=== PATIENT | female | born 1955 | race Caucasian/White ===

== ENCOUNTER 2019-02-27 06:00 | Day surgery (SDC) | payer MEDICAID, SELFPAY ==
[2019-02-23 10:41] LABS: Add Urine Microscopic? NO
--- NOTE | 2019-02-23 10:44 | ANES.PREANES ---
Pre-Anesthetic Assessment Pre-Anesthetic Assessment: Height/Weight: Height 15.9 m Weight 75.296 kg Preop Diagnosis: ovarian cysts Proposed Procedure: Operation Date: 02/27/19 08:30 Proposed Procedures p Laparoscopic Salpingo Oophorectomy(Bilateral) - Michael Han MD Familial anesthetic complications: No trouble Social: Social History: No alcohol and No tobacco Exam: Pre-Anes Outpt Exam: alert Airway: Cervical ROM: WNL MP: 1 Dentition: Chipped Additional comments: missing Pulmonary: Pulmonary: None reported CV/HEM: CV/HEM: HTN : : None reported Hepatic: Hepatic: None reported GI: GI: GERD Metabolic: Metabolic: None reported Musc/skel: Musc/skel: Lower Back Pain Neuropsych: Neuropsych: CVA (2 years ago, no left over symptoms) Anesthetic Plan: ASA status: III Anesthesia: General Risk of > 500 ml blood loss (7ml/kg in children): No PFSH Anesthesia PFSH: Social History (Updated 02/23/19 @ 10:20 by Ana Lilia Hernandez) Smoking and tobacco status: former smoker Quit status (tobacco): has quit using tobacco Year quit tobacco: 1974 Alcohol intake: never Additional social history: Well balanced diet Data Anesthesia Cardiac Studies: No Data to Display
[2019-02-23 10:48] LABS: Bilirubin Urine Neg (NEGATIVE); Blood Urine Neg (Negative); Glucose Urine UA Norm (Normal); Ketones Urine Negative (Negative); Leukocyte Esterase Urine Negative (Negative); Nitrate Urine Negative (Negative); Protein Urine Neg (Negative); Specific Gravity, Urine 1.005 (1.005-1.030); Urine Appearance Clear (CLEAR); Urine Color Straw (Yellow); Urobilinogen Urine Norm (Negative)
[2019-02-23 10:48] LABS: Hematocrit 45.3 % (37.0-47.0); Hemoglobin 14.7 g/dL (11.5-15.3); Mean Corpuscular HGB Conc 32.5 g/dL (30.0-36.0); Mean Corpuscular Hemoglobin 29.9 pg (28.0-34.0); Mean Corpuscular Volume 92.1 fL (81-99); Mean Platelet Volume 11.6 fL (7.4-10.4); Platelet Count 272 10^3/cmm (130-400); Red Blood Count 4.92 10^6/uL (4.1-5.3); Red Cell Distribution Width 13.8 % (12.1-15.1); White Blood Count 8.1 10^3/uL (4.0-10.0)
[2019-02-23 10:58] LABS: Anion Gap 12.9 (5-19); Blood Urea Nitrogen 14 mg/dL (8-23); Calcium 10.5 mg/Dl (8.8-10.2); Carbon Dioxide 29 mmol/L (22-29); Chloride 100 mmol/L (98-107); Glomerular Filtration Rate 124.6 mL/min (90-130); Glucose 103 mg/dL (74-106); Potassium 3.9 mmol/L (3.5-5.1); Sodium 138 mmol/L (136-145)
[2019-02-23 11:40] LABS: Absolute Segmented Neutrophil 5.6 10/cmm (1.6-7.1); Band Neutrophils Absolute 0.4 10^3/cmm (0.0-1.2); Giant Platelets 1+; Lymphocytes 20 %; Monocytes Absolute 0.4 10^3/cmm (0.1-0.6); Platelet Estimate Normal (Normal); Segmented Neutrophils 70 %; Total Cells Counted 100 (0-100)
[2019-02-27] VITALS (8 sets, daily range): BP systolic 130–158; BP diastolic 66–85; PULSE 54–78; RESP 10–183; TEMP 36.2–36.8; O2SAT 96–100
[2019-02-27] MEDS: sodium chloride 0.9% 1,000 ML 30 ML IV (06:43)
[2019-02-27] MEDS: ketorolac 30 mg/mL INJ IVP (06:48)
[2019-02-27] MEDS: phenazopyridine 100 mg Tablet 200 MG PO (06:48)
--- NOTE | 2019-02-27 07:04 | P.HPUD_ITS ---
H&P update H&P Update: DATE OF SURGERY/PROCEDURE: 02/27/19 DATE H&P PERFORMED: 11/03 H&P UPDATE INFORMATION: H&P completed within last 30 days, No changes to prior documentation and H&P is in [facility] EMR on date indicated PREOP DIAGNOSIS: Left ovarian neoplasm of uncertain behavior PLANNED PROCEDURE: Operation Date: 02/27/19 07:00 Proposed Procedures p Laparoscopic Salpingo Oophorectomy(Bilateral) - Michael Han MD Full H&P Medications/Allergies: Current Medications: Current Medications Generic Name Dose Route Start Last Admin Trade Name Freq PRN Reason Stop Dose Admin Sodium Chloride 1,000 mls @ 30 ml s/hr 02/27/19 06:30 02/27/19 06:43 Sodium Chloride 0.9% IV 02/28/19 06:29 30 mls/hr .Q24H CADEN Administration Perinent History: Medical/Surgical History: Medical History (Updated 02/25/19 @ 18:59 by Michael Han MD) Breast cancer (Acute) Diagnosed 2013. Treated with lumpectomy and lymph node excision. Received chemotherapy. Dyslipidemia (Acute) Essential hypertension (Acute) Gastroesophageal reflux disease without esophagitis (Acute) History of cerebrovascular accident (Acute) Patient had a cerebrovascular accident on 11/05/2016 (age 61) involving the left middle cerebral artery. Patient treated with TPA. She has had a completely workup. She has no residual deficit. Neoplasm of uncertain behavior of ovary (Acute) Obesity (BMI 30-39.9) (Acute) Urinary incontinence (Acute) 01/10/2019: Reports stress and urgency incontinence with urgency being the greatest complaint. Reports only mild stress symptoms. Has been on Vesicare for several years which has been controlling her symptoms. Family History: Family History (Updated 02/19/19 @ 15:48 by Alexia Rincon RN) Father Stroke Heart disease Sister Hypertension Social History: Social History Smoking and tobacco status: former smoker Quit status (tobacco): has quit using tobacco Year quit tobacco: 1975 Alcohol intake: never Additional social history: Well balanced diet
--- NOTE | 2019-02-27 08:16 | PM.OP ---
Operative Report Date of procedure: 02/27/19 Preop Diagnosis: Left ovarian neoplasm of uncertain behavior Post-op diagnosis: same Procedure Done: Laparoscopic bilateral salpingo-oophorectomy Specimens removed/disposition: Bilateral tubes and ovaries Surgeon: Michael Han Anesthesia: general Estimated blood loss (mL): 5 IV fluids (mL): 800 Urine output (mL): 300 Complications: None Findings: Minimal uterine prolapse. Normal-appearing uterus. Anterior posterior cul-de-sac normal in appearance. Normal-appearing right ovary and tube. Left ovary was enlarged with a cyst present within the ovary. She had adhesions of the sigmoid along the left pelvic brim. Condition: stable Disposition: same day Procedure: DATE OF SURGERY: 02/27/2019 DATE OF DICTATION: 02/27/2019 TIME OF DICTATION: 08: 17 PREOPERATIVE DIAGNOSIS: Left ovarian neoplasm of uncertain behavior POSTOPERATIVE DIAGNOSIS: Left ovarian neoplasm of uncertain behavior PROCEDURE: Laparoscopic bilateral salpingo-oophorectomy SURGEON: Michael Han M.D. TRAY ROOM WORKER: None ANESTHESIA: General per endotracheal tube INDICATIONS: Patient is a 64-year-old white female 2, para 2 who is postmenopausal. She presented to the office on 12/05/2017 in follow-up of an ER visit with an incidental finding of a cystic left adnexal mass. She was being evaluated for possible kidney stones and the cyst was identified. She denied any symptoms related to the cyst itself. She had had an ultrasound on 06/13/2017 which had shown a left cyst measuring 5.0 x 4.8 cm. On 12/27/2017, the cyst measured 5.5 x 5.2 x 4.2 cm and was thought to be either unchanged or minimally changed. This was then serially followed over the next year. By December 2018, the cyst had enlarged and was now 7.7 x 4.5 x 4.7 cm. It was still simple in appearance. However due to the slow enlargement, decision was made to proceed with removal of the ovaries as there is was more likely to be a tumor of the ovary. Questions were answered and she is presenting for surgery at this time. PROCEDURE: The patient was taken to the operating room where general anesthesia was obtained. She was prepped and draped in the usual sterile fashion in the dorsal supine position with legs in Alexis style stirrups. Sequential compression boots were placed prior to starting the case. Bladder was drained and exam under anesthesia was performed. She was found to have minimal uterine prolapse. Weighted speculum was placed in the vagina and the cervix was grasped with a single-tooth tenaculum. A ZUMI was placed. The infraumbilical region was injected with 2% lidocaine with epinephrine. Skin incision was made with a knife in the lower edge of the navel and a size 10 trocar and sheath were inserted under direct visualization using an Optiview type technique. Trocar was removed and replaced with just the laparoscope confirming intra-abdominal placement. The anterior abdominal wall was inspected and noted to be free of adhesions. In the right and left lower quadrants lateral to the inferior epigastric vessels, the skin was injected with 2% lidocaine with epinephrine. Skin incision was made with the knife and a 5 mm trocar and sheath were inserted under direct visualization. The pelvis was thoroughly inspected. She had a left ovarian cyst. Right ovary was normal in appearance. No other pelvic or uterine abnormalities noted. She did have adhesions of the sigmoid along the pelvic brim. Using the Voyant sealing device, the adhesions of the sigmoid along the pelvic brim were taken down and allowed the infundibulopelvic ligament to be identified and visualized. Care was taken not to damage underlying structures in the process. The left infundibulopelvic ligament was sealed and cut and the dissection carried along the underlying mesovarium and mesosalpinx until the corner of the uterus was reached. The fallopian tube and the utero-ovarian ligament was sealed and cut, completely freeing the tube and ovary. The right infundibulopelvic ligament was sealed and cut and the dissection carried along the underlying mesovarium mesosalpinx until the corner of the uterus was reached. The fallopian tube and the utero-ovarian ligament were sealed and cut, completely freeing the tube and ovary. A 5 mm scope was inserted into the right lower quadrant site. A laparoscopic pouch was passed through the umbilical site and both ovaries placed within the pouch. This was brought up to the incision and the pouch brought through the abdominal incision after stretching the fascial incision. The cyst was then able to be aspirated which deflated the ovary and allow the pouch to then be removed from the abdominal cavity with ovaries within the pouch. No spillage of fluid occurred with this. The fascia was closed at the umbilicus using interrupted stitches of 0 Vicryl suture. This allowed adequate pneumoperitoneum to be maintained. The pelvis was then reinspected and the dissection areas noted to be hemostatic. The abdomen was deflated and the ports removed. The umbilical site was reapproximated using 4-0 Vicryl suture. Skin glue was applied to the other sites and the skin of the navel. The ZUMI was removed and there was minimal bleeding from the tenaculum site. Patient tolerated the procedures well. Sponge and needle counts were correct. ESTIMATED BLOOD LOSS: 5 mL INTRAVENOUS FLUIDS: 800 mL crystalloid DRAINS: None SPECIMENS: Bilateral tubes and ovaries COMPLICATIONS: None FINDINGS: Minimal uterine prolapse. Normal-appearing uterus. Anterior posterior cul-de-sac normal in appearance. Normal-appearing right ovary and tube. Left ovary was enlarged with a cyst present within the ovary. She had adhesions of the sigmoid along the left pelvic brim. POSTOPERATIVE STATUS: The patient was transferred to the recovery room in satisfactory condition. DISPOSITION: Patient was to be discharged home when criteria was met. FOLLOWUP APPOINTMENT: Patient was to followup in my office on 03/12/2019. PRESCRIPTIONS: She received prescriptions for: [place] 5/325 mg, 1 to 2 tablets every 6 hours as needed for pain, #30, 0 refills. She may resume her usual home medications.
--- NOTE | 2019-02-27 08:30 | SUR.PHASEI ---
0829 PATIENT TO PACU AT THIS TIME VIA GURNEY FROM OR. RR EVEN AND UNLABORED. PWD.
--- NOTE | 2019-02-27 08:55 | SUR.PHASEI ---
0851 PATIENT TO OPS VIA [facility]. PATIENT A/OX3. NO DISTRESS. RR EVEN AND UNLABORED. DENIES PAIN.
[2019-02-27] MEDS: HYDROcodone-acetaminophen 5-325 mg Tablet 1 TAB PO (09:19)
[2019-02-27] MEDS: ondansetron 2 mg/ML SDV 2 mL 4 MG IVP (09:35)
--- NOTE | 2019-02-27 14:42 | ANE.PACU ---
 Inpatient post-anesthesia follow up: Airway intact: Yes Vital signs: Temperature 97.4 F Pulse Rate [Left A pical] 60 Respiratory Rate 183 Blood Pressure [Ri ght Arm] 143/69 Pulse Oximetry 96 Oxygen Delivery Me thod Room Air Oxygen Flow Rate 3 Fraction of Inspir ed Oxygen Hydration adequate: Yes Nausea and vomiting: No Mental status: Baseline
== END 2019-02-27 10:21 | disposition home or self-care (01) ==
PROVIDERS: Family Provider Nurse Practitioner; PCP Nurse Practitioner; Visit Provider Obstetrics & Gynecology
PROC: (CPT 58661; principal; 2019-02-27 07:00)
DX: N83.202 Unspecified ovarian cyst, left side (principal); Z85.3 Personal history of malignant neoplasm of breast; E78.5 Hyperlipidemia, unspecified; I10 Essential (primary) hypertension; Z86.73 Personal history of transient ischemic attack (TIA), and cerebral infarction without residual deficits; Z82.49 Family history of ischemic heart disease and other diseases of the circulatory system; Z87.891 Personal history of nicotine dependence
CPT/HCPCS: 58661; 12345; 36415; 80048; 81003; 85007; 85027; 86850; 86900; 88305; 96374; 96375; J0131; J1100; J1885; J2001; J2405; J2704; J2710; J3010; J3490; J7030

== ENCOUNTER → 2019-03-14 12:49 | Outpatient (BNVA) | payer MEDICAID, SELFPAY | PROVIDERS: Family Provider Nurse Practitioner; PCP Nurse Practitioner; Visit Provider Specialist | DX: Z86.73 Personal history of transient ischemic attack (TIA), and cerebral infarction without residual deficits (principal); Z87.891 Personal history of nicotine dependence | CPT/HCPCS: 99214 ==

== ENCOUNTER 2019-03-16 08:36 | Outpatient (CLI) | payer MEDICAID, SELFPAY | END 2019-03-16 08:37 | disposition home or self-care (01) | LOC: ONCMED 08:39 | PROVIDERS: Family Provider Nurse Practitioner; PCP Nurse Practitioner; Visit Provider Internal Medicine Hematology & Oncology | DX: Z08 Encounter for follow-up examination after completed treatment for malignant neoplasm (principal); Z85.3 Personal history of malignant neoplasm of breast; M85.88 Other specified disorders of bone density and structure, other site; I89.0 Lymphedema, not elsewhere classified; I10 Essential (primary) hypertension; E78.5 Hyperlipidemia, unspecified; Z79.82 Long term (current) use of aspirin; Z92.21 Personal history of antineoplastic chemotherapy; Z90.722 Acquired absence of ovaries, bilateral; Z92.3 Personal history of irradiation; Z86.73 Personal history of transient ischemic attack (TIA), and cerebral infarction without residual deficits | CPT/HCPCS: G0463 ==

== ENCOUNTER → 2019-04-09 08:32 | Outpatient (BNVA) | payer MEDICAID, SELFPAY | PROVIDERS: Family Provider Nurse Practitioner; PCP Nurse Practitioner; Visit Provider Nurse Practitioner | DX: E78.5 Hyperlipidemia, unspecified (principal); I10 Essential (primary) hypertension | CPT/HCPCS: 80053; 80061 ==

== ENCOUNTER → 2019-07-05 10:27 | Outpatient (BNVA) | payer MEDICAID, SELFPAY | PROVIDERS: Family Provider Nurse Practitioner; PCP Nurse Practitioner; Visit Provider Nurse Practitioner | DX: I10 Essential (primary) hypertension (principal); K21.9 Gastro-esophageal reflux disease without esophagitis; R32 Unspecified urinary incontinence; E11.9 Type 2 diabetes mellitus without complications | CPT/HCPCS: 80053; 85025 ==

== ENCOUNTER → 2019-07-17 14:55 | Outpatient (BNVA) | payer MEDICAID, SELFPAY | PROVIDERS: Family Provider Nurse Practitioner; PCP Nurse Practitioner; Visit Provider Nurse Practitioner | DX: I10 Essential (primary) hypertension (principal); E11.9 Type 2 diabetes mellitus without complications | CPT/HCPCS: 81000 ==

== ENCOUNTER 2019-09-07 09:00 | Outpatient (CLI) | payer MEDICAID, SELFPAY ==
--- NOTE | 2019-09-07 09:11 | MM_ITS ---
WS: [id number] BILATERAL DIGITAL DIAGNOSTIC MAMMOGRAM MAMMOGRAPHY WITH CAD CLINICAL INFORMATION: HX OF BREAST CA COMPARISON: September 02, 2018 TECHNIQUE: Bilateral CC, MLO, and ML views. FINDINGS: The breasts are composed of heterogeneous fibroglandular density, which can limit the detection of sm all underlying mass lesions. Postoperative changes lumpectomy with surgical clips and femoral age reece nges. Punctate calcifications. No suspicious focal mass, asymmetry, calcifications, or architectural distortion. No evidence of aaliyah gnancy. MM/[id number] IMPRESSION: BI-RADS: 2-Benign FOLLOW UP: 1 Year Follow-up Recommend return to annual diagnostic mammography.
== END 2019-09-07 09:01 | disposition home or self-care (01) ==
LOC: RADSHAW 09:04
PROVIDERS: PCP Nurse Practitioner; Visit Provider Internal Medicine Hematology & Oncology
DX: Z85.3 Personal history of malignant neoplasm of breast (principal)
CPT/HCPCS: 77066

== ENCOUNTER → 2019-10-04 09:09 | Outpatient (BNVA) | payer MEDICAID, SELFPAY | PROVIDERS: PCP Nurse Practitioner; Visit Provider Nurse Practitioner | DX: E78.5 Hyperlipidemia, unspecified (principal); I10 Essential (primary) hypertension; K21.9 Gastro-esophageal reflux disease without esophagitis; R32 Unspecified urinary incontinence | CPT/HCPCS: 80053; 80061; 81000; 85025 ==

== ENCOUNTER → 2020-01-03 11:13 | Outpatient (BNVA) | payer MEDICAID, SELFPAY | PROVIDERS: PCP Nurse Practitioner; Visit Provider Nurse Practitioner | DX: E11.9 Type 2 diabetes mellitus without complications (principal); E78.5 Hyperlipidemia, unspecified; I10 Essential (primary) hypertension; R32 Unspecified urinary incontinence; K21.9 Gastro-esophageal reflux disease without esophagitis; I89.0 Lymphedema, not elsewhere classified | CPT/HCPCS: 80053; 80061; 81000; 84443; 85025 ==

== ENCOUNTER 2020-01-23 22:46 | Observation (INO) | payer MEDICAID, SELFPAY ==
[2020-01-23 22:50] VITALS: BP 168/94; PULSE 61; RESP 18; TEMP 36.6; O2SAT 99; BMI 32.0
--- NOTE | 2020-01-23 23:05 | ECG_ITS ---
[facility] Test Date: 2020-01-23 Pat Name: Tianna Mckeon Department: Room: Gender: Female Theatrical Trouper: : 1955 Requested By: Sumi Finch Order Number: [id number] Jade MD: Jamee Ramirez M.D. Measurements Intervals [place] Rate: 62 P: 52 CA: 160 QRS: 14 QRSD: 89 T: 55 QT: 414 QTc: 423 Interpretive Statements SINUS RHYTHM Compared to ECG 11/05/2016 12:53:30 Myocardial infarct finding no longer present Electronically Signed On 01-24-2020 21:24:08 SENIOR PRODUCT CONSULTANT by Jamee Ramirez M.D. [id number]
[2020-01-23] MEDS: aspirin 81 mg Chew Tablet 324 MG PO (23:16)
[2020-01-23] MEDS: ondansetron 2 mg/ML SDV 2 mL 4 MG IVP (23:23)
[2020-01-23 23:35] LABS: Basophils # 0.1 10^3/uL (0.0-0.1); Basophils % 0.9 %; Eosinophils # 0.2 10^3/uL (0.0-0.8); Eosinophils % 1.6 %; Hematocrit 43.5 % (37.0-47.0); Hemoglobin 14.7 g/dL (11.5-15.3); Lymphocytes # 2.3 10^3/uL (0.8-4.8); Lymphocytes % 21.5 %; Mean Corpuscular HGB Conc 33.8 g/dL (30.0-36.0); Mean Corpuscular Volume 91.8 fL (81-99); Mean Platelet Volume 11.3 fL (7.4-10.4); Monocytes # 0.7 10^3/uL (0.2-0.9); Monocytes % 6.8 %; Neutrophils # 7.25 10^3/uL (1.8-7.7); Neutrophils % 68.8 %; Nucleated Red Blood Cells % 0 %; Platelet Count 254 10^3/cmm (130-400); Red Blood Count 4.74 10^6/uL (4.1-5.3); Red Cell Distribution Width 13.4 % (12.1-15.1); White Blood Count 10.5 10^3/uL (4.0-10.0)
--- NOTE | 2020-01-23 23:35 | ED_ITS ---
HPI - Chest Pain General: Chief Complaint: Chest Pain Stated Complaint: chest pain/high bp Time Seen by Provider: 01/23/20 23:07 Source: patient and family Mode of arrival: ambulatory Limitations: no limitations History of Present Illness: HPI narrative: Mrs. Mckeon is a very nice 64-year-old female who comes in complaining of chest pain. She describes the pain as a pressure and a dull ache in the center of her chest. There is no radiation of her pain. She does have shortness of breath associated with this. Tonight and yesterday she had symptoms that were brought on by exertion and made worse by exertion. She had associated nausea but no vomiting. She is not had diaphoresis. Patient states prior to today she has had 3 to 4 days of extreme shortness of breath when she exerts herself. Patient states currently her chest pain is resolved. But she had chest pain that was constant but gradually/slowly resolved itself from 6 PM to 11 PM. Associated symptoms: Reports dyspnea and nausea; Deny abdominal pain, diaphoresis, fever(s), palpitations, syncope or vomiting Review of Systems Const: Denies: fever(s), chills, body aches, fatigue, malaise or diaphoresis Eyes: Denies: change in vision, blurry vision, photophobia, eye discomfort, eye discharge, eye redness or yellow eyes ENMT: Denies: throat pain, odynophagia, hoarseness, swelling of lips/tongue, ear or mastoid pain, ear discharge, change in hearing or nasal discharge Card: Reports: chest pain and dyspnea on exertion; Denies: palpitations, irregular heart rhythm, edema, lightheadedness, syncope, pre-syncope or orthopnea Resp: Reports: dyspnea; Denies: productive cough, non-productive cough, wheezing, hemoptysis or chest congestion GI: Reports: nausea; Denies: abdominal pain, vomiting, hematemesis, coffee ground emesis, heartburn, diarrhea, constipation, GI cramping, hematochezia or melena : Denies: flank pain, dysuria, urinary frequency, urinary urgency or hematuria Musc: Denies: neck pain, back pain, extremity pain, extremity swelling, joint pain, joint swelling, joint redness, joint warmth or joint stiffness Skin/Breast: Denies: rash, pruritus, erythema, skin pain or skin tenderness Neuro: Denies: headache(s), numbness in extremities, weakness in extremities, sensory changes, lack of coordination, difficulty walking, dizziness, vertigo, confusion, Slurred speech present or seizure-like activity Geovani/Lymph: Denies: easy bruising, easy bleeding, petechiae, purpura or enlarged lymph nodes All/Imm: Denies: urticaria, throat swelling, tongue swelling, facial swelling or acute wheezing PFSH ED PFSH: Medical History (Updated 01/24/20 @ 01:22 by Sumi Steiner) Breast cancer Diagnosed 2013. Treated with lumpectomy and lymph node excision. Received chemotherapy. Dyslipidemia Essential hypertension Gastroesophageal reflux disease without esophagitis History of cerebrovascular accident Patient had a cerebrovascular accident on 11/05/2016 (age 61) involving the left middle cerebral artery. Patient treated with TPA. She has had a completely workup. She has no residual deficit. Lymph edema Left arm 2013 Obesity (BMI 30-39.9) Serous cystadenoma of left ovary Bilateral salpingo-oophorectomy performed on 02/27/2019. Final path showed serous cystadenoma. Urinary incontinence 01/10/2019: Reports stress and urgency incontinence with urgency being the greatest complaint. Reports only mild stress symptoms. Has been on Vesicare for several years which has been controlling her symptoms. Surgical History History of removal of Port-a-Cath (02/26/14) Inserted on 10/17/2013 and removed on 02/26/2014. Both performed by Dr. Suarez at [facility] and [place], [place] S/P bilateral salpingo-oophorectomy (02/27/19) Laparoscopic. Diag: Left ovarian cyst. Performed by Dr. Han at [facility] in [place], [place]. Final path showed: Left serous cystadenoma. S/P lumpectomy of breast (09/12/13) Diagnosed with breast cancer. S/P lymph node biopsy (09/21/13) Axillary, as part of the evaluation for breast cancer. Family History Father Stroke Heart disease Sister Hypertension Social History Smoking and tobacco status: former smoker Quit status (tobacco): has quit using tobacco Year quit tobacco: 1974 Second hand smoke exposure: No Smoking risk assessment/counseling performed?: No Alcohol intake: never Desire information about alcohol rehabilitation?: No Counseling given: No Desire information about substance/drug rehabilitation?: No Counseling given: No Caregiver/support person: No Lives independently: Yes Household members: family Marital status: Single Current occupational status: disabled History of recent travel: No Current gender identity: Female Additional social history: Well balanced diet Physical Exam Const: COMMON NORMALS: no acute distress, patient oriented x3, no limitations and alert GENERAL APPEARANCE: cooperative HENMT: COMMON NORMALS: normocephalic, atraumatic, external ears normal, EAC's normal and Normal external nose present HEAD & SCALP: normal to inspection, normocephalic and atraumatic FACE & SINUS: normal facial exam and face symmetric NOSE: Normal external nose present and Normal nares present EXTERNAL EAR: Yes external ears normal EXTERNAL AUDITORY CANAL: EAC's normal MOUTH: Normal oral and palatal mucosa present, lip normal and tongue normal Eye: COMMON NORMALS: Equal, round and reactive pupils present and conjunctivae normal GENERAL EYE: appearance normal, both eyes and all related structures ALIGNMENT: Yes alignment normal PERIORBITAL: periorbital findings normal EYELID: eyelids normal CONJUNCTIVA: Yes conjunctivae normal SCLERA: sclerae normal PUPIL: Yes Equal, round and reactive pupils present Neck/C-Spine: COMMON NORMALS: full ROM, no lymphadenopathy, supple, no meningeal signs and no JVD GENERAL: Yes normal visual inspection and Yes trachea midline Chest: COMMONS NORMALS: normal inspection of the chest and normal palpation of entire chest wall Resp: COMMON NORMALS: normal respiratory effort, No retractions, No use of accessory muscles and clear to auscultation bilaterally EFFORT & INSPECTION: Yes able to speak in complete sentences and Yes symmetric chest movement AUSCULTATION: clear to auscultation bilaterally, no crackles, no rales, no rhonchi and no wheezes Cardio: COMMON NORMALS: no JVD, regular rate, regular rhythm, S1 normal heart sound present and S2 normal heart sound present RATE: regular rate RHYTHM: regular rhythm HEART SOUNDS: S1 normal heart sound present, S2 normal heart sound present, no click, no gallops, no murmurs and no rubs GI: COMMON NORMALS: Soft to palpation and No hepatosplenomegaly present PALPATION: Yes Soft to palpation, No Tenderness to palpation present (GI), No Guarding due to palpation present (GI), No Rigid due to palpation, Yes No hepatosplenomegaly present, No Hernia present, No Palpable mass present and No Pulsatile mass present : COMMON NORMALS: Yes no CVA tenderness BLADDER/KIDNEY EXAM: Yes no CVA tenderness EXTERNAL FEMALE EXAM: No Hernia present Back/Pelvis: COMMON NORMALS: no CVA tenderness, thoracic and lumbar spine normal to inspection, no thoracic nor lumbar tenderness and thoraco-lumbar ROM normal Extremity: COMMON NORMALS: normal to inspection, full ROM, capillary refill normal, no joint enlargement, no clubbing, cyanosis or edema and no calf tenderness Neuro: COMMON NORMALS: patient oriented x3, CN's II-XII intact bilaterally, moves all extremities, no focal motor deficits and no sensory deficits noted SENSORIUM/ORIENTATION: Yes alert MENINGEAL SIGNS: Yes no meningeal signs SPEECH: speech normal Psych: COMMON NORMALS: mental status grossly normal, Normal thought process present, cooperative, normal affect, speech normal and activity/motor behavior normal SPEECH: Yes normal speech THOUGHT PROCESS: Normal thought process present Skin: COMMON NORMALS: no rashes or lesions noted, turgor normal, no jaundice, no petechiae and no mottling GENERAL SKIN EXAM: no rashes or lesions noted and turgor normal Course Vital Signs: Vital signs: Vital Signs Temperature 97.8 F 01/23/20 22:50 Pulse Rate 57 L 01/24/20 00:53 Respiratory Rate 22 H 01/24/20 00:53 Blood Pressure 135/63 01/24/20 00:07 Pulse Oximetry 94 01/24/20 00:53 MDM - Chest Pain MDM Narrative: Medical decision making narrative: Tianna is a very nice [age]-year-old female who comes in complaining of progressive shortness of breath and chest discomfort anytime she exerts herself. Her EKG shows no specific abnormalities at this time and is at its baseline. Patient's first troponin is normal. Patient has a heart score of 5. Based upon the hospital chest pain algorithm she will need to be admitted for further evaluation and care. This time the patient has no pain is had no pain since arrival. The case was endorsed to Dr. VALLES who agrees to see the patient for further evaluation and care. Lab Data: Attestation: I reviewed the patient's lab results. Labs: Lab Results 01/23/20 01/23/20 01/23/20 Range/Units 23:21 23:21 23:21 WBC 10.5 H (4.0-10.0) 10^3/ uL RBC 4.74 (4.1-5.3) 10^6/u L Hgb 14.7 (11.5-15.3) g/dL Hct 43.5 (37.0-47.0) % MCV 91.8 (81-99) fL MCH 31.0 (28.0-34.0) pg MCHC 33.8 (30.0-36.0) g/dL RDW 13.4 (12.1-15.1) % Plt Count 254 (130-400) 10^3/c mm MPV 11.3 H (7.4-10.4) fL Neut % (Auto) 68.8 % Lymph % (Auto) 21.5 % [place] % (Auto) 6.8 % Eos % (Auto) 1.6 % Baso % (Auto) 0.9 % Neut # (Auto) 7.25 (1.8-7.7) 10^3/u L Lymph # (Auto) 2.3 (0.8-4.8) 10^3/u L [place] # (Auto) 0.7 (0.2-0.9) 10^3/u L Eos # (Auto) 0.2 (0.0-0.8) 10^3/u L Baso # (Auto) 0.1 (0.0-0.1) 10^3/u L Nucleated RBC % (a uto) 0 % Nucleated RBCs # 0.0 /100WBC PT 12.80 (12.1-14.9) SECO NDS INR 0.93 (0.8-1.2) D-Dimer (0-0.59) ug/mIFE U Sodium 140 (136-145) mmol/L Potassium 3.8 (3.5-5.1) mmol/L Chloride 105 (98-107) mmol/L Carbon Dioxide 26 (22-29) mmol/L Anion Gap 12.8 (5-19) BUN 24 H (8-23) mg/dL Creatinine 0.6 (0.5-0.9) mg/dL GFR Calculation 101.0 (90-130) mL/min Glucose 117 H (65-115) mg/dL Calculated Osmolal ity 295 (285-295) mOsm/k g Calcium 9.5 (8.5-10.5) mg/dL Total Bilirubin 0.6 (0.15-1.2) mg/dL AST 16 (0-32) U/L ALT 15 (0-33) U/L Alkaline Phosphata se 59 (35-105) IU/L Troponin T Baselin e (0-10) ng/L Total Protein 6.5 L (6.6-8.7) g/dL Albumin 3.9 (3.5-5.2) g/dL Globulin 2.6 (1.3-4.6) g/dL Lipase 36 (13-60) U/L 01/23/20 01/24/20 Range/Units 23:21 00:00 WBC (4.0-10.0) 10^3/ uL RBC (4.1-5.3) 10^6/u L Hgb (11.5-15.3) g/dL Hct (37.0-47.0) % MCV (81-99) fL MCH (28.0-34.0) pg MCHC (30.0-36.0) g/dL RDW (12.1-15.1) % Plt Count (130-400) 10^3/c mm MPV (7.4-10.4) fL Neut % (Auto) % Lymph % (Auto) % [place] % (Auto) % Eos % (Auto) % Baso % (Auto) % Neut # (Auto) (1.8-7.7) 10^3/u L Lymph # (Auto) (0.8-4.8) 10^3/u L [place] # (Auto) (0.2-0.9) 10^3/u L Eos # (Auto) (0.0-0.8) 10^3/u L Baso # (Auto) (0.0-0.1) 10^3/u L Nucleated RBC % (a uto) % Nucleated RBCs # /100WBC PT (12.1-14.9) SECO NDS INR (0.8-1.2) D-Dimer 0.87 H (0-0.59) ug/mIFE U Sodium (136-145) mmol/L Potassium (3.5-5.1) mmol/L Chloride (98-107) mmol/L Carbon Dioxide (22-29) mmol/L Anion Gap (5-19) BUN (8-23) mg/dL Creatinine (0.5-0.9) mg/dL GFR Calculation (90-130) mL/min Glucose (65-115) mg/dL Calculated Osmolal ity (285-295) mOsm/k g Calcium (8.5-10.5) mg/dL Total Bilirubin (0.15-1.2) mg/dL AST (0-32) U/L ALT (0-33) U/L Alkaline Phosphata se (35-105) IU/L Troponin T Baselin e 8 (0-10) ng/L Total Protein (6.6-8.7) g/dL Albumin (3.5-5.2) g/dL Globulin (1.3-4.6) g/dL Lipase (13-60) U/L Imaging Data^: CXR: Attestation: I personally reviewed and interpreted this imaging study as follows: EKG Data^: EKG 1: Attestation: I personally reviewed and interpreted this EKG as follows: EKG interpretation date: 01/23/20 EKG interpretation time: 23:17 Interpretation: Normal sinus rhythm at 62 beats a minute, no blocks, normal intervals, nonspecific findings inferiorly, otherwise unremarkable EKG. Similar to previous. Discharge Plan Discharge Patient Disposition: Placed in Observation Admit Provider: Sanaz Valles Clinical Impression: Chest pain Condition: Stable Coding Level of Care Code ED Turning Sander Operator for Chg Fwd Exam Comprehensive
[2020-01-23 23:44] LABS: INR 0.93 (0.8-1.2)
[2020-01-23 23:57] LABS: Alanine Aminotransferase 15 U/L (0-33); Albumin Level 3.9 g/dL (3.5-5.2); Alkaline Phosphatase 59 IU/L (35-105); Aspartate Amino Transferase 16 U/L (0-32); Blood Urea Nitrogen 24 mg/dL (8-23); Calcium 9.5 mg/dL (8.5-10.5); Carbon Dioxide 26 mmol/L (22-29); Chloride 105 mmol/L (98-107); Globulin 2.6 g/dL (1.3-4.6); Glucose 117 mg/dL (65-115); Lipase 36 U/L (13-60); Osmolality Calculated 295 mOsm/kg (285-295); Sodium 140 mmol/L (136-145); Total Bilirubin 0.6 mg/dL (0.15-1.2); Total Protein 6.5 g/dL (6.6-8.7)
[2020-01-24] VITALS (10 sets, daily range): BP systolic 117–146; BP diastolic 63–86; PULSE 57–90; RESP 18–22; TEMP 36.6–36.8; O2SAT 94–99
[2020-01-24] LABS: Troponin(5th) Baseline 8 ng/L (0-10)
[2020-01-24 00:02] LABS: Anion Gap 12.8 (5-19); Potassium 3.8 mmol/L (3.5-5.1)
--- NOTE | 2020-01-24 00:17 | P.HP_ITS ---
Providers/Chief Complaint Primary Care Provider: Hermann Villarreal, GSE MECHANIC-C Chief Complaint: chest pain/high bp History of Present Illness Tianna Mckeon is a 64 year old female who does not have history of coronary disease previous angiogram in 2015 revealed nonobstructive coronary disease when she was not able to finish stress test presented today with chief, chest discomfort. Patient is stating that for last few days she has been using a stationary bicycle, she has lost significant amount intentionally and she is happy with her progress, few days ago when she was on the stationary bike after 10 minutes she started experiencing chest discomfort which she is describing as dull, this pain was getting worse on taking deep breath as well which she has had since radiation therapy for breast cancer. Today she started experiencing dull chest discomfort again when she noticed high blood pressure, systolic blood pressure was in 160s, she also noticed some palpitations for few minutes and decided to come to the hospital, this pain was not radiating towards her arm or jaw not associated with nausea, vomiting or diaphoresis. Diagnosis in the ER revealed normal hemodynamics, systolic blood pressure 146/86, respiratory rate 20 afebrile normal CBC and BMP I requested D-dimer which came back mildly high, I would request CTA chest At the time my evaluation she was not complaining of any active chest pain Troponin not significantly high EKG is not showing any ischemic or infarctive changes Review of Systems Const: Denies: fever(s), chills or body aches Eyes: Denies: change in vision ENMT: Denies: throat pain Card: Reports: chest pain, palpitations and dyspnea on exertion; Denies: swelling of feet/ankles Resp: Reports: dyspnea; Denies: productive cough or non-productive cough GI: Denies: abdominal pain : Denies: flank pain Musc: Reports: extremity swelling; Denies: neck pain Skin/Breast: Reports: lesions; Denies: new lesions Neuro: Denies: headache(s) Psych: Denies: anxiety Endo: Denies: polyuria Geovani/Lymph: Denies: easy bruising All/Imm: Denies: urticaria Medications/Allergies Home Medications Medication Instructions Recorded Confirmed Last Taken Type aspirin 81 mg tablet,delayed 81 mg PO DAILY tab 02/19/19 01/03/20 02/21/19 History release calcium carbonate 600 mg calcium 600 mg PO BID 02/19/19 01/03/20 02/26/19 History (1,500 mg) tablet multivitamin,[id number] 1 tab PO QAM 02/19/19 01/03/20 02/26/19 History atenolol 25 mg tablet 25 mg PO DAILY #30 tab 01/03/20 01/03/20 Unknown Rx atorvastatin 20 mg tablet 20 mg PO DAILY #30 tab 01/03/20 01/03/20 Unknown Rx lisinopril 40 mg tablet 40 mg PO .at bedtime #30 tab 01/03/20 01/03/20 Unknown Rx solifenacin 10 mg tablet 10 mg PO DAILY #30 tab 01/03/20 01/03/20 Unknown Rx sucralfate 1 gram tablet 1 g PO BID PRN #60 tab 01/03/20 01/03/20 Unknown Rx Allergies Allergy/AdvReac Type Severity Reaction Status Date / Time codeine Allergy Confusion Verified 07/05/19 09:38 haloperidol Allergy Weird Verified 07/05/19 09:38 feeling morphine Allergy Weird Verified 07/05/19 09:38 feeling /confusion Penicillins Allergy Hives/Itchi Verified 07/05/19 09:38 ng PFSH Acute PFSH: Medical History (Updated 01/24/20 @ 01:53 by Sanaz Heaton MD) Breast cancer Diagnosed 2013. Treated with lumpectomy and lymph node excision. Received chemotherapy. Dyslipidemia Essential hypertension Gastroesophageal reflux disease without esophagitis History of cerebrovascular accident Patient had a cerebrovascular accident on 11/05/2016 (age 61) involving the left middle cerebral artery. Patient treated with TPA. She has had a completely workup. She has no residual deficit. Lymph edema Left arm 2013 Obesity (BMI 30-39.9) Serous cystadenoma of left ovary Bilateral salpingo-oophorectomy performed on 02/27/2019. Final path showed serous cystadenoma. Urinary incontinence 01/10/2019: Reports stress and urgency incontinence with urgency being the greatest complaint. Reports only mild stress symptoms. Has been on Vesicare for several years which has been controlling her symptoms. Surgical History History of removal of Port-a-Cath (02/26/14) Inserted on 10/17/2013 and removed on 02/26/2014. Both performed by Dr. Suarez at [facility] and [place], [place] S/P bilateral salpingo-oophorectomy (02/27/19) Laparoscopic. Diag: Left ovarian cyst. Performed by Dr. Han at [facility] in [place], [place]. Final path showed: Left serous cystadenoma. S/P lumpectomy of breast (09/12/13) Diagnosed with breast cancer. S/P lymph node biopsy (09/21/13) Axillary, as part of the evaluation for breast cancer. Family History Father Stroke Heart disease Sister Hypertension Social History Smoking and tobacco status: former smoker Quit status (tobacco): has quit using tobacco Year quit tobacco: 1974 Second hand smoke exposure: No Smoking risk assessment/counseling performed?: No Alcohol intake: never Desire information about alcohol rehabilitation?: No Counseling given: No Desire information about substance/drug rehabilitation?: No Counseling given: No Caregiver/support person: No Lives independently: Yes Household members: family Marital status: Single Current occupational status: disabled History of recent travel: No Current gender identity: Female Additional social history: Well balanced diet Vitals/I&O/Wt Last Vital Signs Temp 97.8 F 01/23/20 22:50 Pulse 62 01/24/20 00:07 Resp 18 01/24/20 00:07 BP 135/63 01/24/20 00:07 Pulse Ox 97 01/24/20 00:07 Weight last 48 hrs Weight 79.379 kg Physical Exam Narrative: EXAM NARRATIVE: Very pleasant elderly female Currently chest pain-free No acute respite distress Saturating well on room air Appears well-hydrated S1, S2 no tachycardia heart failure signs No apparent respiratory distress, bilateral breath sounds without adventitious rhonchi or crackles Left upper and lower extremity edema noted, nonpitting Appropriate mood and affect Abdomen soft bowel sound present EOMI, GCS 15 awake alert oriented x3 Skin without any ischemic gangrene signs Data : 01/23/20 23:21 01/23/20 23:21 A&P Assessment and plan (1) Atypical chest pain: Atypical chest pain She carries moderate risk factors such as hypertension, diabetes, radiation therapy for breast cancer, age, She has been experiencing chest discomfort with moderate activities, she is also endorsing pleuritic chest pain CTA ruled out PE EKG without ischemic changes, troponin not separately high Would request echo and Lexiscan stress test in the morning N.p.o. Status: Acute Additional A&P Information Resume her medications after stress test, hold atenolol She is normotensive at this point, would increase lisinopril dose for suboptimal blood pressure control Euglycemic Full code DVT prophylaxis Lovenox Attestations Medical Necessity Statement*: Anticipated discharge less than 48 hours need stress test to rule coronary ischemia etiology for her atypical chest pain Time Spent in Patient Care: (>than 50% of time spent in counselling and/or direct pt care on unit) . 50mins Coding Level of Care Code Acute Environmental Compliance Technician for Chandler Francis Diagnoses Atypical chest pain R07.89
[2020-01-24 00:36] LABS: D Dimer 0.87 ug/mIFEU (0-0.59)
--- NOTE | 2020-01-24 00:40 | CTR_ITS ---
PROCEDURE INFORMATION: Exam: CT Angiography Chest With Contrast Exam date and time: 01/24/2020 12:43 AM Age: 64 years old Clinical indication: Patient HX: Central chest pain. Elevated d dimer. ; Additional info: Cp TECHNIQUE: Imaging protocol: Computed tomographic angiography of the chest with intravenous contrast. 3D rendering (Not supervised by radiologist): MIP and/or 3D reconstructed images were created by the technologist. Radiation optimization: All CT scans at this facility use at least one of these dose optimization techniques: automated exposure control; mA and/or kV adjustment per patient size (includes targeted exams where dose is matched to clinical indication); or iterative reconstruction. Contrast material: OMNI 350; Contrast volume: 60 ml; Contrast route: INTRAVENOUS (IV); COMPARISON: CT chest wo con [id number] 01/22/2015 1:33 PM RADIATION DOSE METRICS: Total DLP (mGy-cm): 532.78 FINDINGS: Pulmonary arteries: Normal. No pulmonary emboli. Aorta: Unremarkable. No aortic aneurysm. No aortic dissection. Lungs: Unremarkable. No consolidation. No masses. Pleural space: Unremarkable. No pneumothorax. No pleural effusion. Heart: Minimal coronary artery atherosclerotic calcifications. Lymph nodes: Unremarkable. No enlarged lymph nodes. Bones/joints: Unremarkable. No acute fracture. Soft tissues: Left breast appears somewhat edematous, please correlate clinically. CT/CT angio chest PE protcl [id number] IMPRESSION: 1. Negative for pulmonary embolus or airspace infiltrate 2. Minimal coronary artery atherosclerotic calcifications. 3. Left breast appears somewhat edematous, please correlate clinically. Radiation Dose CTDIVOL = (mGy): DLP = 532.78 (mGy-cm)
[2020-01-24] MEDS: iohexol 350 mg/mL 100 mL Btl IV (01:10)
--- NOTE | 2020-01-24 01:42 | NMCV_ITS ---
NM asim perf SPECT r/s* [id number] Tianna Mckeon Age: 64 Gender: F : 1955 Exam Date: 01/24/2020 10:25 Ordering Phys: Sanaz Heaton MD Technologist: JAYLYN Saavedra Exam Location: [facility] Indications: Chest pain, HTN STRESS TEST Please see separate stress test report in [facility] for full findings IMAGE PROTOCOL Rest/Stress 1 Lexiscan Day Radiopharmaceutical Dose (mCi) Administration Site Administered by Rest: Tc-99m 11.0 IV Earlene Austyn, LOCKSTITCH ZIPPER SETTER Sestamibi Stress:Tc-99m 32.6 IV Earlene Austyn, LOCKSTITCH ZIPPER SETTER Sestamibi Rest: 24-Jan-2020 60 Discovery 630 Stress: 24-Jan-2020 45 Discovery 630 0.4mg Lexiscan. Images obtained in supine and prone position. SPECT RESULTS Technical Quality: Good Raw Data Analysis: Breast attenuation Image Corrections: No attenuation or motion correction applied Summed Stress Score: 4 Summed Rest Score: 5 Summed Difference Score: 0 PERFUSION FINDINGS Small area of fixed perfusion defect noted in apical region of the left ventricle suggestive of possible apical thinning artifact FUNCTIONAL RESULTS (calculated via Gated SPECT) Stress Image LV EF (%): 66 Stress EDV (mL):85 TID: 0.85 Stress ESV (mL):29 Rest Image LV EF (%): 66 FUNCTIONAL FINDINGS: There is normal left ventricular systolic function. IMPRESSIONS Myocardial perfusion imaging is normal low probability for obstructive coronary artery disease. EKG segment will be documented separately. Sanaz Lincoln MD (Electronically Signed) Final Date: 24 January 2020 15:50 S
--- NOTE | 2020-01-24 01:42 | USCV_ITS ---
Tianna Mckeon Age: 64 Gender: F : 1955 Exam Date: 01/24/2020 08:23 Ordering Phys: Sanaz Heaton MD Technologist: Chanelle Alberto Exam Location: [facility] [place] Indication: ANGINA BP: 117 / 72 HR: 67 Rhythm: Sinus Technical Quality: Fair MEASUREMENTS (Male / Female) Normal Values 2D ECHO LV Diastolic Diameter PLAX 3.1 cm 4.2 - 5.9 / 3.9 - 5.3 cm LV Systolic Diameter PLAX 2.5 cm LV Chamber Size 3.0 cm IVS Diastolic Thickness 2.1 cm 0.6 - 1.0 / 0.6 - 0.9 cm IVS Systolic Thickness 1.5 cm LVPW Diastolic Thickness 2.1 cm 0.6 - 1.0 / 0.6 - 0.9 cm LVPW Systolic Thickness 2.1 cm RV Chamber Size 2.6 cm LVOT Diameter 2.0 cm LV Ejection Fraction 2D Teich 38.8 % LV Ejection Fraction MOD 2C 48.5 % LV Ejection Fraction 2C AL 49.0 % LA Diameter 3.3 cm LA Width 3.0 cm LA Height 4.7 cm RA Width 3.0 cm RA Height 4.1 cm M-MODE LV Diastolic Diameter MM 5.3 cm 4.2 - 5.9 / 3.9 - 5.3 cm LV Systolic Diameter MM 4.0 cm LV Ejection Fraction MM Teich 50.5 % IVS Diastolic Thickness MM 1.1 cm 0.6 - 1.0 / 0.6 - 0.9 cm IVS Systolic Thickness MM 1.5 cm LVPW Diastolic Thickness MM 1.0 cm 0.6 - 1.0 / 0.6 - 0.9 cm LVPW Systolic Thickness MM 1.6 cm Aortic Annulus Diameter 3.3 cm LA Ao Ratio MM 1.3 MV E Point Septal Separation 0.7 cm DOPPLER AV Peak Velocity 118.0 cm/s LVOT Peak Velocity 90.0 cm/s AV Area Cont Eq vti 2.1 cm squared AV Area Cont Eq pk 2.4 cm squared MV Area PHT 3.3 cm squared Mitral E to A Ratio 0.8 MV E' Velocity 46.0 cm/s Mitral E to MV E' Ratio 8.7 Mitral E to LV E' Lateral Ratio 7.9 Mitral E to LV E' Septal Ratio 9.9 TR Peak Velocity 206.7 cm/s TR Peak Gradient 17.1 mmHg TV Peak E Velocity 65.0 cm/s Right Atrial Pressure 3.0 mmHg Pulmonary Artery Systolic Pressu 20.1 mmHg PV Peak Velocity 73.0 cm/s RV Acceleration Time 0.1 s RV Ejection Time 0.3 s RV AcT/ET 0.4 FINDINGS Left Ventricle Normal LV size with a possibly normal ejection fraction. Grade I/IV diastolic dysfunction (abnormal relaxation filling pattern), normal to mildly elevated filling pressures. Segmental wall motion analysis difficult because of the poor ultrasonic window Right Ventricle The right ventricle is normal in size and function. Right Atrium The right atrium is normal in size. Left Atrium The left atrium is normal in size. Mitral Valve Minimally thickened mitral valve. Aortic Valve Thickened aortic valve. Tricuspid Valve No gross abnormalities noted Pulmonic Valve Pulmonic valve not well visualized. Pericardium Normal pericardium without effusion. Aorta Normal ascending aorta dimension. CONCLUSIONS Normal LV size with a possibly normal ejection fraction. Grade I/IV diastolic dysfunction (abnormal relaxation filling pattern), normal to mildly elevated filling pressures. Segmental wall motion analysis difficult because of the poor ultrasonic window. Minimally thickened mitral valve. Comparison with the previous study is difficult because of the difference in the technical quality. Dr Karol Muniz MD [facility] (Electronically Signed) Final Date: 24 January 2020 20:18 S
[2020-01-24] MEDS: lisinopril 20 mg Tablet 40 MG PO (01:56)
[2020-01-24] MEDS: enoxaparin 40 mg/0.4 mL Syringe SUBCUT (01:57)
[2020-01-24 02:25] LABS: Troponin 5 2HR 8.61 ng/L (0-10); Troponin 5 2HR Delta 0.61 ABS# (0-10)
[2020-01-24 05:15] LABS: Basophils # 0.1 10^3/uL (0.0-0.1); Basophils % 0.9 %; Eosinophils # 0.1 10^3/uL (0.0-0.8); Eosinophils % 1.7 %; Hemoglobin 13.3 g/dL (11.5-15.3); Lymphocytes # 1.8 10^3/uL (0.8-4.8); Lymphocytes % 22.1 %; Mean Corpuscular HGB Conc 32.4 g/dL (30.0-36.0); Mean Corpuscular Hemoglobin 30.5 pg (28.0-34.0); Mean Platelet Volume 11.4 fL (7.4-10.4); Monocytes # 0.5 10^3/uL (0.2-0.9); Monocytes % 6.7 %; Neutrophils # 5.49 10^3/uL (1.8-7.7); Neutrophils % 68.2 %; Nucleated Red Blood Cells % 0 %; Platelet Count 224 10^3/cmm (130-400); Red Blood Count 4.36 10^6/uL (4.1-5.3); Red Cell Distribution Width 13.5 % (12.1-15.1); White Blood Count 8.1 10^3/uL (4.0-10.0)
[2020-01-24 05:44] LABS: Troponin 5 6HR 9.26 ng/L (0-10); Troponin 5 6HR Delta 1.26 ng/L (0-12)
[2020-01-24 05:48] LABS: Anion Gap 14.2 (5-19); Blood Urea Nitrogen 19 mg/dL (8-23); Calcium 8.9 mg/dL (8.5-10.5); Carbon Dioxide 24 mmol/L (22-29); Chloride 109 mmol/L (98-107); Glucose 99 mg/dL (65-115); Osmolality Calculated 298 mOsm/kg (285-295); Potassium 4.2 mmol/L (3.5-5.1); Sodium 143 mmol/L (136-145); Thyroid Stimulating Hormone 5.26 uIU/mL (0.27-4.20)
[2020-01-24] MEDS: aspirin 81 mg EC Tablet PO (08:06)
[2020-01-24] MEDS: atorvastatin 40 mg Tablet 20 MG PO (08:06)
--- NOTE | 2020-01-24 10:44 | PC.NURSE ---
1040-PT OFF UNIT FOR STRESS TEST.
[2020-01-24] MEDS: regadenoson 0.4 Mg/5 ml Syringe IVP (11:26)
--- NOTE | 2020-01-24 17:13 | P.DS_ITS ---
Discharge Providers Date of Admission: 01/24/20 00:20 Date of Discharge: January 24, 2020 Attending Provider at Admission: Sanaz Heaton MD Attending Provider at Discharge: Ayad Beard Primary Care Provider: ADAM London Diagnoses at Discharge Discharge Diagnosis (1) Atypical chest pain: Status: Resolved Reason for Visit Reason for Visit: chest pain/high bp Hospital Course Hospital Course 64 year old female who does not have history of coronary disease previous angiogram in 2015 revealed nonobstructive coronary disease when she was not able to finish stress test presented today with chief, chest discomfort. Patient is stating that for last few days she has been using a stationary bicycle, she has lost significant amount intentionally and she is happy with her progress, few days ago when she was on the stationary bike after 10 minutes she started experiencing chest discomfort which she is describing as dull, this pain was getting worse on taking deep breath as well which she has had since radiation therapy for breast cancer. Today she started experiencing dull chest discomfort again when she noticed high blood pressure, systolic blood pressure was in 160s, she also noticed some palpitations for few minutes and decided to come to the hospital, this pain was not radiating towards her arm or jaw not associated with nausea, vomiting or diaphoresis. Diagnosis in the ER revealed normal hemodynamics, systolic blood pressure 146/86 , respiratory rate 20 afebrile. Laboratory workup on arrival showed a WBC of 10.5, hemoglobin of 14.7, hematocrit 43.5 and platelet count of 254. sodium 140, potassium 3.8, chloride 105, bicarb 26, BUN 24 and creatinine 0.6. Troponin remained negative. EKG did not show any evidence of acute ischemia. TSH was found to be slightly elevated at 5.2 however per patient she had recently been prescribed levothyroxine which she had not picked up from the pharmacy. Upon admission an CT angio of chest was performed which was negative for acute PE. Minimal coronary artery atherosclerotic calcifications were seen. Cardiac workup included echocardiogram was performed which showed normal LV function, grade 1/4 diastolic dysfunction without any evidence of regional wall motion abnormality. nuclear stress test was performed which showed low probability of obstructive coronary artery disease. Patient did not have any recurrence of her chest pain. At this time she was discharged and advised to follow-up with primary care physician. Physical Exam Narrative: EXAM NARRATIVE: General : alert/awake oriented x 3 HEENT : Grossly unremarkable CVS : NSR CHEST : Non-labored respiration ABD : Soft NT/ND Ext : No edema Discharge Data Data Completed and Pending: Completed Studies During Hospitalization Category Date Time Status CT angio chest PE protcl [id number] Stat Cat Scan 01/24/20 00:40 Completed NM asim perf SPECT r/s* [id number] Routin e Nuc Med 01/24/20 01:42 Completed Pending at discharge Category Date Time Status Sestamibi Stress Test Request Routi ne Exams 01/25/20 06:00 Ordered CV echo complete* [id number] Routine Ultrasound 01/24/20 01:42 Taken Labs from last 24 hours 01/24/20 01/24/20 01/24/20 04:54 04:54 04:54 WBC 8.1 RBC 4.36 Hgb 13.3 Hct 41.0 MCV 94.0 MCH 30.5 MCHC 32.4 RDW 13.5 Plt Count 224 MPV 11.4 H Neut % (Auto) 68.2 Lymph % (Auto) 22.1 Prentiss % (Auto) 6.7 Eos % (Auto) 1.7 Baso % (Auto) 0.9 Neut # (Auto) 5.49 Lymph # (Auto) 1.8 Prentiss # (Auto) 0.5 Eos # (Auto) 0.1 Baso # (Auto) 0.1 Nucleated RBC % (a uto) 0 Nucleated RBCs # 0.0 PT INR D-Dimer Sodium 143 Potassium 4.2 Chloride 109 H Carbon Dioxide 24 Anion Gap 14.2 BUN 19 Creatinine 0.6 GFR Calculation 101.0 Glucose 99 Calculated Osmolal ity 298 H Calcium 8.9 Total Bilirubin AST ALT Alkaline Phosphata se Troponin T Baselin e Troponin T 120 Min [place] Delta Troponin T Troponin T Hi Sens 6Hr 9.26 Troponin T Hi Sens 6Hr Delta 1.26 Total Protein Albumin Globulin Lipase TSH 5.26 H 01/24/20 01/24/20 01/23/20 01:20 00:00 23:21 WBC RBC Hgb Hct MCV MCH MCHC RDW Plt Count MPV Neut % (Auto) Lymph % (Auto) [place]iss % (Auto) Eos % (Auto) Baso % (Auto) Neut # (Auto) Lymph # (Auto) [place]rentiss # (Auto) Eos # (Auto) Baso # (Auto) Nucleated RBC % (a uto) Nucleated RBCs # PT INR D-Dimer 0.87 H Sodium Potassium Chloride Carbon Dioxide Anion Gap BUN Creatinine GFR Calculation Glucose Calculated Osmolal ity Calcium Total Bilirubin AST ALT Alkaline Phosphata se Troponin T Baselin e 8 Troponin T 120 Min [place] 8.61 Delta Troponin T 0.61 Troponin T Hi Sens 6Hr Troponin T Hi Sens 6Hr Delta Total Protein Albumin Globulin Lipase TSH 01/23/20 01/23/20 01/23/20 23:21 23:21 23:21 WBC 10.5 H RBC 4.74 Hgb 14.7 Hct 43.5 MCV 91.8 MCH 31.0 MCHC 33.8 RDW 13.4 Plt Count 254 MPV 11.3 H Neut % (Auto) 68.8 Lymph % (Auto) 21.5 [place]iss % (Auto) 6.8 Eos % (Auto) 1.6 Baso % (Auto) 0.9 Neut # (Auto) 7.25 Lymph # (Auto) 2.3 [place]rentiss # (Auto) 0.7 Eos # (Auto) 0.2 Baso # (Auto) 0.1 Nucleated RBC % (a uto) 0 Nucleated RBCs # 0.0 PT 12.80 INR 0.93 D-Dimer Sodium 140 Potassium 3.8 Chloride 105 Carbon Dioxide 26 Anion Gap 12.8 BUN 24 H Creatinine 0.6 GFR Calculation 101.0 Glucose 117 H Calculated Osmolal ity 295 Calcium 9.5 Total Bilirubin 0.6 AST 16 ALT 15 Alkaline Phosphata se 59 Troponin T Baselin e Troponin T 120 Min [place] Delta Troponin T Troponin T Hi Sens 6Hr Troponin T Hi Sens 6Hr Delta Total Protein 6.5 L Albumin 3.9 Globulin 2.6 Lipase 36 TSH Vitals: Last Vital Signs Temp 98.0 F 01/24/20 15:45 Pulse 64 01/24/20 15:45 Resp 18 01/24/20 15:45 BP 146/80 01/24/20 15:45 Pulse Ox 96 01/24/20 15:45 Discharge Plan Discharge Patient Disposition: Home Condition: Stable Prescriptions: Continued aspirin [Enteric Coated Aspirin] 81 mg tablet,delayed release (DR/EC) 81 mg PO DAILY@ RF: 0 Complete Multivitamin Tablet 1 tab PO DAILY@ RF: 0 calcium carbonate 600 mg calcium (1,500 mg) tablet 600 mg PO BID@ RF: 0 atenolol 25 mg tablet 25 mg PO DAILY Qty: 30 RF: 2 atorvastatin 20 mg tablet 20 mg PO DAILY Qty: 30 RF: 2 lisinopril 40 mg tablet 40 mg PO .at bedtime Qty: 30 RF: 2 solifenacin [Vesicare] 10 mg tablet 10 mg PO DAILY Qty: 30 RF: 2 sucralfate [Carafate] 1 gram tablet 1 g PO BID PRN (Reason: acid reflux) Qty: 60 RF: 2 Discharge Orders: Discharge Order (Routine); Ordered 01/24/20 Ordered By: Ayad Beard Referrals: Hermann Villarreal FNP-C [Primary Care Provider] - 4-7 days (Please call [facility] Nunez and schedule an appointment with Hermann Villarreal to be seen within one week. ) Discharge Diet: Cardiac Discharge Activity: Resume usual activity Patient Instructions: Chest Pain (DC) Activity Restrictions/Additional Instructions: Return to hospital if any recurrence of chest pain. Monitor blood pressure twice daily after 30 min rest until follow up appointment with PCP. Discharge Attestations Time Spent in Discharge Care*: greater than 30 min Specific Discharge Activities: educating patient, discussing with ed case manager/social workers/dc planners, documenting/other paperwork and evaluating patient/reviewing data Status at Discharge: Cognitive status at discharge: cognitively intact , Behavioral status at discharge: cooperative , Functional status at discharge: independent ambulation Overall status at discharge: patient is back to baseline Quality Metrics Clinical Quality Measures During this hospital stay, did patient experience: None Coding Level of Care Code Acute Exhibition Carver for Chandler Francis Diagnoses Atypical chest pain R07.89
== END 2020-01-24 18:45 | disposition home or self-care (01) ==
LOC: ER 23:08 → MEDSURG 01-24 00:39
PROVIDERS: Admitting Provider Internal Medicine; Emergency Provider Emergency Medicine; PCP Nurse Practitioner; Visit Provider Hospitalist
DX: R07.89 Other chest pain (principal); Z79.82 Long term (current) use of aspirin; Z85.3 Personal history of malignant neoplasm of breast; E78.5 Hyperlipidemia, unspecified; I10 Essential (primary) hypertension; K21.9 Gastro-esophageal reflux disease without esophagitis; E66.9 Obesity, unspecified; Z68.32 Body mass index [BMI] 32.0-32.9, adult; Z87.891 Personal history of nicotine dependence
CPT/HCPCS: 12345; 36415; 71275; 78452; 80048; 80053; 83690; 84443; 84484; 85025; 85378; 85610; 93005; 93017; 93306; 96372; 96374; 99282; 99291; A9500; G0378; J1650; J2405; J2785; Q9967

== ENCOUNTER → 2020-03-19 09:21 | Outpatient (BNVA) | payer MEDICAID, SELFPAY | PROVIDERS: PCP Nurse Practitioner; Visit Provider Nurse Practitioner | DX: E03.8 Other specified hypothyroidism (principal); E11.9 Type 2 diabetes mellitus without complications; I10 Essential (primary) hypertension | CPT/HCPCS: 80053; 80061; 84443; 85025 ==

== ENCOUNTER → 2020-04-07 16:11 | Outpatient (BNVA) | payer MEDICAID, SELFPAY | PROVIDERS: PCP Nurse Practitioner; Visit Provider Nurse Practitioner Family | DX: Z20.822 Contact with and (suspected) exposure to COVID-19 (principal) | CPT/HCPCS: 87635 ==

== ENCOUNTER 2020-04-13 21:56 | Inpatient (IN) | payer MEDICAID, SELFPAY ==
[2020-04-13 21:58] VITALS: BP 111/56; PULSE 71; RESP 19; TEMP 36.8; O2SAT 95; BMI 30.7
--- NOTE | 2020-04-13 21:58 | XRR_ITS ---
PROCEDURE INFORMATION: Exam: XR Chest Exam date and time: 04/13/2020 10:24 PM Age: 65 years old Clinical indication: Shortness of breath; Patient HX: Covid 5 days ago, increased SOB; Additional info: Covid, SOB TECHNIQUE: Imaging protocol: XR of the chest Views: 1 view. COMPARISON: CT angio chest PE protcl [id number] 01/24/2020 12:55 AM FINDINGS: Lungs: Minor interstitial opacity or thickening of right lower lung. Left perihilar and retrocardiac left lower lung interstitial and partially alveolar opacities. Pleural spaces: Minimal blunting left costophrenic angle. No pneumothorax. Heart/Mediastinum: Upper normal or borderline cardiac size. Bones/joints: Minor degenerative change of thoracic spine. XR/XR chest 1V portable [id number] IMPRESSION: 1. Left perihilar and retrocardiac left lower lung interstitial and partially alveolar opacities. 2. Minor interstitial opacity right lower lung.
--- NOTE | 2020-04-13 22:06 | ED_ITS ---
HPI - COVID General: Chief Complaint: COVID symptoms Stated Complaint: shortness of breath Time Seen by Provider: 04/13/20 21:58 Source: patient and EMS Limitations: physical limitation Triage information: Has fever, cough or shortness of breath . Exposure to COVID + person last 14 days History of Present Illness: HPI Narrative: Patient is a 65-year-old female who was diagnosed with COVID-19 last week. She states she has been sick for approximately 1 week now. She was having increased shortness of breath tonight and has a home pulse ox meter that was reading in the mid 80s. She was ultimately placed on nonrebreather by EMS is having O2 sats around 92 to 94%. MD complaint: known COVID positive Prior covid testing: yes, results known COVID 19 common symptoms: positive cough, dyspnea and fatigue; negative headache(s), nausea or vomiting COVID 19 other sytmptoms: positive requiring oxygen; negative chest pain or confusion Onset (ago): week(s) (1) Severity: severe Pertinent comorbid conditions: hypertension COVID Results: SARS-CoV-2 RNA (RT-PCR) Detected (NOT DETECTED) A 04/07/20 16:11 04/07/20 Review of Systems General: Reports: 10 or more systems reviewed and unremarkable except in HPI and below Const: Reports: fatigue Card: Denies: chest pain, palpitations or syncope Resp: Reports: dyspnea GI: Denies: abdominal pain, nausea or vomiting Skin/Breast: Denies: rash Neuro: Denies: headache(s) or confusion PFS ED PFSH: Medical History Adult onset hypothyroidism Breast cancer Diagnosed 2013. Treated with lumpectomy and lymph node excision. Received chemotherapy. Dyslipidemia Essential hypertension Gastroesophageal reflux disease without esophagitis History of cerebrovascular accident Patient had a cerebrovascular accident on 11/05/2016 (age 61) involving the left middle cerebral artery. Patient treated with TPA. She has had a completely workup. She has no residual deficit. Lymph edema Left arm 2013 Obesity (BMI 30-39.9) Serous cystadenoma of left ovary Bilateral salpingo-oophorectomy performed on 02/27/2019. Final path showed serous cystadenoma. Urinary incontinence 01/10/2019: Reports stress and urgency incontinence with urgency being the greatest complaint. Reports only mild stress symptoms. Has been on Vesicare for several years which has been controlling her symptoms. Surgical History History of removal of Port-a-Cath (02/26/14) Inserted on 10/17/2013 and removed on 02/26/2014. Both performed by Dr. Suarez at [facility] and [place], [place] S/P bilateral salpingo-oophorectomy (02/27/19) Laparoscopic. Diag: Left ovarian cyst. Performed by Dr. Han at [facility] in [place], [place]. Final path showed: Left serous cystadenoma. S/P lumpectomy of breast (09/12/13) Diagnosed with breast cancer. S/P lymph node biopsy (09/21/13) Axillary, as part of the evaluation for breast cancer. Family History Father Stroke Heart disease Sister Hypertension Social History Smoking and tobacco status: former smoker Quit status (tobacco): has quit using tobacco Year quit tobacco: 1974 Second hand smoke exposure: No Smoking risk assessment/counseling performed?: No Alcohol intake: never Desire information about alcohol rehabilitation?: No Counseling given: No Desire information about substance/drug rehabilitation?: No Counseling given: No Caregiver/support person: No Lives independently: Yes Household members: family Marital status: Single Current occupational status: disabled History of recent travel: No Current gender identity: Female Additional social history: Well balanced diet Physical Exam Const: COMMON NORMALS: average body habitus, alert and well nourished GENERAL APPEARANCE: cooperative and well kempt; not in distress ORIENTATION/CONSCIOUSNESS: Yes awake OTHER: Acutely ill- appearing 65-year-old female on a nonrebreather. She is in no acute distress. She is able to converse. HENMT: COMMON NORMALS: normocephalic, atraumatic and Normal external nose present HEAD & SCALP: normocephalic and atraumatic NOSE: Normal external nose present MOUTH: Normal oral and palatal mucosa present Eye: COMMON NORMALS: EOMs intact bilaterally and conjunctivae normal CONJUNCTIVA: Yes conjunctivae normal Neck/C-Spine: GENERAL: Yes normal visual inspection, No tracheal deviation and No submandibular swelling Chest: COMMONS NORMALS: normal inspection of the chest Resp: EFFORT & INSPECTION: Yes able to speak in complete sentences OTHER: Mild increased work of breathing with tachypnea. Cardio: COMMON NORMALS: regular rhythm and Peripheral pulses 2+ throughout RHYTHM: regular rhythm PERIPHERAL PULSES: Peripheral pulses 2+ throughout GI: COMMON NORMALS: Normal to inspection, nondistended, normoactive bowel sounds present, Soft to palpation and non-tender PALPATION: Yes Soft to palpation Extremity: COMMON NORMALS: normal to inspection, full ROM and no pedal edema Neuro: COMMON NORMALS: no focal motor deficits SENSORIUM/ORIENTATION: Yes alert Psych: COMMON NORMALS: mental status grossly normal APPEARANCE: Yes well kempt Skin: COMMON NORMALS: no rashes or lesions noted GENERAL SKIN EXAM: no rashes or lesions noted Course Vital Signs: Vital signs: Vital Signs Temperature 98.3 F 04/13/20 21:58 Pulse Rate 70 04/13/20 22:25 Respiratory Rate 24 H 04/13/20 22:25 Blood Pressure 111/56 04/13/20 22:25 Pulse Oximetry 97 04/13/20 22:25 MDM - COVID MDM Narrative: Medical decision making narrative: 65-year-old female with known COVID-19 infection has had increased shortness of breath, hypoxemia, and is requiring significant supplemental oxygen. Should be given dose of IV Decadron here with plan for continuation of daily Decadron, oxygen titration, and admission to the hospital. We will go ahead and transition to high flow nasal cannula if possible. Patient does desire intubation if necessary but we are certainly not to that point yet. Patient accepted by Dr. Heaton. Differential Diagnosis: Differential diagnosis: Likely COVID 19, other viral infection, bacterial infection, pneumonia and copd exacerbation Medical Records: Attestation: I reviewed the patient's medical records. Lab Data: Labs: Lab Results 04/13/20 Range/Units 22:13 WBC 11.9 H (4.0-10.0) 10^3/ uL RBC 5.24 (4.1-5.3) 10^6/u L Hgb 15.8 H (11.5-15.3) g/dL Hct 47.1 H (37.0-47.0) % MCV 89.9 (81-99) fL MCH 30.2 (28.0-34.0) pg MCHC 33.5 (30.0-36.0) g/dL RDW 13.7 (12.1-15.1) % Plt Count 271 (130-400) 10^3/c mm MPV 11.1 H (7.4-10.4) fL Neut % (Auto) 85.4 % Lymph % (Auto) 8.8 % [place] % (Auto) 5.1 % Eos % (Auto) 0.0 % Baso % (Auto) 0.2 % Neut # (Auto) 10.20 H (1.8-7.7) 10^3/u L Lymph # (Auto) 1.1 (0.8-4.8) 10^3/u L [place] # (Auto) 0.6 (0.2-0.9) 10^3/u L Eos # (Auto) 0.0 (0.0-0.8) 10^3/u L Baso # (Auto) 0.0 (0.0-0.1) 10^3/u L Nucleated RBC % (a uto) 0 % Nucleated RBCs # 0.0 /100WBC COVID Results: SARS-CoV-2 RNA (RT-PCR) Detected (NOT DETECTED) A 04/07/20 16:11 04/07/20 Discharge Plan Discharge Prescriptions: No Action aspirin [Enteric Coated Aspirin] 81 mg tablet,delayed release (DR/EC) 81 mg PO DAILY@09 RF: 0 Complete Multivitamin Tablet 1 tab PO DAILY@09 RF: 0 calcium carbonate 600 mg calcium (1,500 mg) tablet 600 mg PO BID@18 RF: 0 dexamethasone 6 mg tablet 6 mg PO DAILY 7 Days Qty: 7 RF: 0 albuterol sulfate [ProAir HFA] 90 mcg/actuation HFA aerosol inhaler 2 puff inhalation QID PRN (Reason: shortness of breath or wheezing) 30 Days Qty: 6.7 RF: 0 doxycycline hyclate 100 mg capsule 100 mg PO BID 7 Days Qty: 14 RF: 0 atorvastatin 20 mg tablet 20 mg PO DAILY Qty: 30 RF: 2 levothyroxine [Levo-T] 25 mcg tablet 25 mcg PO .at 8PM Qty: 30 RF: 2 lisinopril 40 mg tablet 40 mg PO .at bedtime Qty: 30 RF: 2 sertraline [Zoloft] 50 mg tablet 50 mg PO .in AM Qty: 30 RF: 2 solifenacin [Vesicare] 10 mg tablet 10 mg PO DAILY Qty: 30 RF: 2 sucralfate [Carafate] 1 gram tablet 1 g PO BID PRN (Reason: acid reflux) Qty: 60 RF: 2 Coding Level of Care Code ED Flamer Sealer for Chg Fwd Exam Comprehensive
[2020-04-13] MEDS: dexamethasone 4 mg/mL INJ 6 MG IVP (22:07)
[2020-04-13 22:25] VITALS: BP 111/56; PULSE 70; RESP 24; O2SAT 97
[2020-04-13 22:45] LABS: Basophils % 0.2 %; Hematocrit 47.1 % (37.0-47.0); Hemoglobin 15.8 g/dL (11.5-15.3); Lymphocytes # 1.1 10^3/uL (0.8-4.8); Lymphocytes % 8.8 %; Mean Corpuscular HGB Conc 33.5 g/dL (30.0-36.0); Mean Corpuscular Hemoglobin 30.2 pg (28.0-34.0); Mean Corpuscular Volume 89.9 fL (81-99); Mean Platelet Volume 11.1 fL (7.4-10.4); Monocytes # 0.6 10^3/uL (0.2-0.9); Monocytes % 5.1 %; Neutrophils % 85.4 %; Nucleated Red Blood Cells % 0 %; Platelet Count 271 10^3/cmm (130-400); Red Blood Count 5.24 10^6/uL (4.1-5.3); Red Cell Distribution Width 13.7 % (12.1-15.1); White Blood Count 11.9 10^3/uL (4.0-10.0)
[2020-04-13 23:03] LABS: Lactic Sepsis W/Reflex 2.3 mmol/L (0.5-2.2)
[2020-04-13 23:04] LABS: Alanine Aminotransferase 23 U/L (0-33); Albumin Level 3.6 g/dL (3.5-5.2); Alkaline Phosphatase 47 IU/L (35-105); Anion Gap 19.9 (5-19); Aspartate Amino Transferase 26 U/L (0-32); Blood Urea Nitrogen 16 mg/dL (8-23); C Reactive Protein 35.3 mg/L (0.0-4.9); Calcium 9.6 mg/dL (8.5-10.5); Carbon Dioxide 26 mmol/L (22-29); Chloride 98 mmol/L (98-107); Globulin 2.8 g/dL (1.3-4.6); Glomerular Filtration Rate 124.2 mL/min (90-130); Glucose 146 mg/dL (65-115); Osmolality Calculated 294 mOsm/kg (285-295); Potassium 3.9 mmol/L (3.5-5.1); Sodium 140 mmol/L (136-145); Total Bilirubin 0.6 mg/dL (0.15-1.2); Total Protein 6.4 g/dL (6.6-8.7)
--- NOTE | 2020-04-13 23:12 | P.HP_ITS ---
Providers/Chief Complaint Primary Care Provider: Hermann Villarreal, DAYANNAC Chief Complaint: shortness of breath History of Present Illness Tianna Mckeon is a 65 year old female tested positive for COVID-19 on 04/07 presented today with chief complaint of shortness of breath. Patient is stating that multiple family members are sick at this point, after her diagnosis she did not notice any high fever however highest temperature was 100.2, she did experience loose stools for 1 day and today her shortness of breath got worse and she was wheezing. Because of these concerns she came to the hospital for further evaluation. At baseline she does not use any oxygen, today she was saturating 84% on room air at home. On arrival she was put on nonrebreather mask to keep her saturation above 92%, she did not complain of any chest pain. At home she has been getting Decadron 6 mg daily, in the ER she was started on remdesivir and was given IV Decadron as well. At the time of my evaluation she was saturating well on nonrebreather mask 15 L which I turned down to 5 L, normal hemodynamics, she was not complaining of active chest pain or shortness of breath however she was experiencing nonproductive cough High D-dimer, I have requested CTA on stat basis She is septic with COVID-19 Lactic acid 2.3 chest x-ray does not show typical groundglass opacity Review of Systems Const: Reports: fever(s), chills, body aches and fatigue Eyes: Denies: change in vision ENMT: Denies: throat pain Card: Denies: chest pain Resp: Reports: dyspnea and non-productive cough GI: Reports: diarrhea; Denies: abdominal pain : Denies: flank pain Musc: Denies: neck pain Skin/Breast: Denies: rash Neuro: Denies: headache(s) Psych: Denies: anxiety Endo: Denies: polyuria Geovani/Lymph: Denies: easy bruising All/Imm: Denies: urticaria Medications/Allergies Home Medications Medication Instructions Recorded Confirmed Last Taken Type aspirin 81 mg tablet,delayed 81 mg PO DAILY@09 tab 02/19/19 04/07/20 02/21/19 History release calcium carbonate 600 mg calcium 600 mg PO BID@,18 01/06/20 02/22/21 01/13/20 History (1,500 mg) tablet multivitamin,[id number] 1 tab PO DAILY@09 02/19/19 04/07/20 02/26/19 History atorvastatin 20 mg tablet 20 mg PO DAILY #30 tab 03/24/20 04/07/20 Unknown Rx levothyroxine 25 mcg tablet 25 mcg PO .at 8PM #30 tab 03/24/20 04/07/20 Unknown Rx lisinopril 40 mg tablet 40 mg PO .at bedtime #30 tab 03/24/20 04/07/20 Unknown Rx sertraline 50 mg tablet 50 mg PO .in AM #30 tab 03/24/20 04/07/20 Unknown Rx solifenacin 10 mg tablet 10 mg PO DAILY #30 tab 03/24/20 04/07/20 Unknown Rx sucralfate 1 gram tablet 1 g PO BID PRN #60 tab 03/24/20 04/07/20 Unknown Rx albuterol sulfate 90 mcg/actuation 2 puff INHALATION QID PRN 30 Days 04/07/20 04/07/20 Unknown Rx aerosol inhaler #6.7 g dexamethasone 6 mg tablet 6 mg PO DAILY 7 Days #7 tab 04/07/20 04/07/20 Unknown Rx doxycycline hyclate 100 mg capsule 100 mg PO BID 7 Days #14 cap 04/07/20 04/07/20 Unknown Rx Allergies Allergy/AdvReac Type Severity Reaction Status Date / Time codeine Allergy Confusion Verified 04/07/20 15:25 haloperidol Allergy Weird Verified 04/07/20 15:25 feeling morphine Allergy Weird Verified 04/07/20 15:25 feeling /confusion Penicillins Allergy Hives/Itchi Verified 04/07/20 15:25 ng PFSH Acute PFSH: Medical History Adult onset hypothyroidism Anxiety as acute reaction to exceptional stress Breast cancer Diagnosed 2013. Treated with lumpectomy and lymph node excision. Received chemotherapy. Diabetes mellitus Dyslipidemia Essential hypertension Gastroesophageal reflux disease without esophagitis History of cerebrovascular accident Lymph edema Left arm 2013 Obesity (BMI 30-39.9) Serous cystadenoma of left ovary Bilateral salpingo-oophorectomy performed on 02/27/2019. Final path showed serous cystadenoma. Urinary incontinence 01/10/2019: Reports stress and urgency incontinence with urgency Surgical History History of removal of Port-a-Cath (02/26/14) Inserted on 10/17/2013 and removed on 02/26/2014. Both performed by Dr. Suarez at [facility] and [place], [place] S/P bilateral salpingo-oophorectomy (02/27/19) Laparoscopic. Diag: Left ovarian cyst. Performed by Dr. Han at [facility] in [place], [place]. Final path showed: Left serous cystadenoma. S/P lumpectomy of breast (09/12/13) Diagnosed with breast cancer. S/P lymph node biopsy (09/21/13) Axillary, as part of the evaluation for breast cancer. Family History Father Stroke Heart disease Sister Hypertension Social History Smoking and tobacco status: former smoker Quit status (tobacco): has quit using tobacco Year quit tobacco: 1974 Second hand smoke exposure: No Smoking risk assessment/counseling performed?: No Alcohol intake: never Desire information about alcohol rehabilitation?: No Counseling given: No Desire information about substance/drug rehabilitation?: No Counseling given: No Caregiver/support person: No Lives independently: Yes Household members: family Marital status: Single Current occupational status: disabled History of recent travel: No Current gender identity: Female Additional social history: Well balanced diet Vitals/I&O/Wt Last Vital Signs Temp 98.3 F 04/13/20 21:58 Pulse 70 04/13/20 22:25 Resp 24 H 04/13/20 22:25 BP 111/56 04/13/20 22:25 Pulse Ox 97 04/13/20 22:25 Weight last 48 hrs Weight 76.204 kg Physical Exam Narrative: EXAM NARRATIVE: Very pleasant middle-aged female Currently saturating well on 5 L nonrebreather mask No active chest pain Experiencing nonproductive cough S1, S2 no murmur appreciated right second intercostal space Mild crackles on expiration noted bilaterally at the bases Abdomen nontender Lower extremity no pain or swelling EOMI, PERRLA Appropriate mood and affect GCS 15 no neurological deficit Data : 04/13/20 22:13 04/13/20 22:13 Micro: Microbiology 04/13/20 22:13 Blood Culture - Preliminary Blood SPECIMEN COLLECTED A&P Assessment and plan (1) Acute respiratory failure with hypoxia: Acute hypoxic respite failure currently doing well on 5 L oxygen mask High D-dimer noticed, will request CTA chest COVID-19 pneumonia De-escalate oxygen requirement and O2 requirement before discharge Status: Acute (2) COVID-19: Start remdesivir along Decadron added vitamin C and zinc Requested procalcitonin level We will follow-up with CTA chest, until then I will keep her on Lovenox 30 mg every 12 for now because of high D-dimer No typical groundglass opacities noted on chest x-ray Meet sepsis criteria with leukocytosis and tachypnea, high lactic acid noted as well which seems secondary to hypoxia Status: Acute Additional A&P Information Cardiac diet DVT prophylaxis Lovenox 30 mg every 12 for now will reevaluate after CTA chest Goals of care discussed with the patient: Full code Attestations Medical Necessity Statement*: For sepsis secondary to COVID-19 pneumonia anticipating stay in the hospital cross more than 2 midnights Time Spent in Patient Care: 30mins Coding Level of Care Code Acute Solar Sales for [facility] Diagnoses Acute respiratory failure with hypoxia J96.01 COVID-19 U07.1
[2020-04-13 23:47] LABS: D Dimer 1.25 ug/mIFEU (0-0.59)
[2020-04-13 23:58] VITALS: BP 113/64; PULSE 57; RESP 20; O2SAT 98
[2020-04-14] VITALS (61 sets, daily range): BP systolic 130–167; BP diastolic 66–89; PULSE 50–83; RESP 3–33; TEMP 36.4–36.8; O2SAT 86–98
[2020-04-14 00:30] LABS: Reflex Lactate Order REFLEX LACTIC ORDERD
--- NOTE | 2020-04-14 01:06 | CTR_ITS ---
PROCEDURE INFORMATION: Exam: CT Angiography Chest With Contrast Exam date and time: 04/14/2020 1:25 AM Age: 65 years old Clinical indication: Dyspnea; Additional info: Pe, covid TECHNIQUE: Imaging protocol: Computed tomographic angiography of the chest with contrast. 3D rendering (Not supervised by radiologist): MIP and/or 3D reconstructed images were created by the technologist. Radiation optimization: All CT scans at this facility use at least one of these dose optimization techniques: automated exposure control; mA and/or kV adjustment per patient size (includes targeted exams where dose is matched to clinical indication); or iterative reconstruction. Contrast material: OMNI 350; Contrast volume: 95 ml; Contrast route: INTRAVENOUS (IV); COMPARISON: CT angio chest PE protcl [id number] 01/24/2020 12:55 AM RADIATION DOSE METRICS: Total DLP (mGy-cm): 580.09 FINDINGS: Pulmonary arteries: No visualized pulmonary embolus. Aorta: Unremarkable. No aortic aneurysm. No aortic dissection. Lungs: Bilateral partially confluent ground-glass opacities within both lungs diffusely throughout the left lung with most prominent involvement of the right lower lobe and minimal involvement of right middle lobe. Findings have developed since the recent CTA of the chest. Pleural spaces: Unremarkable. No pneumothorax. No pleural effusion. Heart: Calcification thoracic aorta and distribution of coronary arteries. Normal right to left ventricular ratio. Lymph nodes: Small mediastinal lymph nodes. Subcarinal lymph node measures approximately 1.9 cm. Confluent small left hilar lymph nodes. 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 Bones/joints: Degenerative change of the spine. Soft tissues: Heterogeneous breast density. Surgical clips reside within soft tissue opacity left breast with left breast superficial skin thickening. Overall reduction in the amount of left breast edema is changes. CT/CT angio chest PE protcl [id number] IMPRESSION: 1. No visualized pulmonary embolus. 2. Abnormal bilateral ground-glass opacities with greatest involvement on the left.Commonly reported imaging features of COVID-19 pneumonia are present. Other processes such as influenza pneumonia and organizing pneumonia, as can be seen with drug toxicity and connective tissue disease, can cause a similar imaging pattern. (Reference: Mcfadden) 3. Subcarinal and suspect partially confluent soft tissue density or confluent small lymph nodes left júnior. 4. Left breast density containing surgical clips and left breast skin thickening. REFERENCES: Bogdan Mondragon et al., Radiological Society of [place] Expert Consensus Statement on Reporting Chest CT Findings Related to COVID-19. Endorsed by the Society of Thoracic Radiology, the [place] [employer], and RSNA. Published May 09, 2019. Radiation Dose CTDIVOL = (mGy): DLP = 580.09 (mGy-cm)
[2020-04-14] MEDS: remdesivir 200 MG in sodium chloride 0.9% (100 ml) 100 ML 100 MG IV (01:07)
[2020-04-14] MEDS: iohexol 350 mg/mL 100 mL Btl IV (02:30)
[2020-04-14 03:10] LABS: Ferritin 963 ng/mL (15-150)
[2020-04-14] MEDS: enoxaparin 30 mg/0.3 mL Syringe SUBCUT ×2 (04:44→17:40)
[2020-04-14 05:39] LABS: Basophils % 0.2 %; Hematocrit 44.1 % (37.0-47.0); Hemoglobin 14.8 g/dL (11.5-15.3); Lymphocytes # 0.7 10^3/uL (0.8-4.8); Lymphocytes % 5.2 %; Mean Corpuscular HGB Conc 33.6 g/dL (30.0-36.0); Mean Corpuscular Hemoglobin 30.4 pg (28.0-34.0); Mean Corpuscular Volume 90.6 fL (81-99); Monocytes # 0.5 10^3/uL (0.2-0.9); Monocytes % 3.9 %; Neutrophils # 11.56 10^3/uL (1.8-7.7); Neutrophils % 90.1 %; Nucleated Red Blood Cells % 0 %; Platelet Count 255 10^3/cmm (130-400); Red Blood Count 4.87 10^6/uL (4.1-5.3); Red Cell Distribution Width 13.9 % (12.1-15.1); White Blood Count 12.8 10^3/uL (4.0-10.0)
--- NOTE | 2020-04-14 05:40 | PC.NURSE ---
PT ARRIVED FROM ED TO CSU 106. PT TRANSSFERED TO BED. PT VS BP 164/85, T 98.3, SPO2 96% ON 6L VIA NC. PT DENIES PAIN AT THIS TIME. PT ORIENTATED TO ROOM. WILL CONTINUE TO MONITOR.
[2020-04-14 06:04] LABS: Anion Gap 16.8 (5-19); Blood Urea Nitrogen 14 mg/dL (8-23); C Reactive Protein 34.1 mg/L (0.0-4.9); Calcium 9.3 mg/dL (8.5-10.5); Carbon Dioxide 24 mmol/L (22-29); Chloride 100 mmol/L (98-107); Glomerular Filtration Rate 160.7 mL/min (90-130); Glucose 150 mg/dL (65-115); Osmolality Calculated 287 mOsm/kg (285-295); Potassium 3.8 mmol/L (3.5-5.1); Sodium 137 mmol/L (136-145)
[2020-04-14 06:06] LABS: Lactic Acid level (Lactate) 2.1 mmol/L (0.5-2.2)
--- NOTE | 2020-04-14 06:35 | PC.NURSE ---
PT HAD AN UNEVENTFUL NIGHT. PT DENIES PAIN AT THIS TIME. WILL CONTINUE TO MONITOR
[2020-04-14 07:02] LABS: Procalcitonin 0.04 ng/mL (0-0.5)
[2020-04-14 08:00] LABS: Glucose Point of Care 123 mg/dL (70-110)
--- NOTE | 2020-04-14 09:24 | PC.CHAP ---
Pastoral Care Encounter/Spiritual Assessment Type of Contact [] Declined medical data entry clerk visit [] Patient/Family/Request visit [] Outpatient visit [] Follow-up visit [] Physician referral [] Code/Alert [x] Routine visit [] Staff referral [] Actively dying [] Patient sleeping [] Family support [] [] Out of room [] Palliative care [] [] Receiving care in room [] Pre-surgical visit [] Trauma [] Long length of stay [] ICU visit [x] Other: isolation Relational/Emotional Strength [] Patient feels connected with others/family/visitors/staff [] Distress [] Loneliness/isolation [] Abandonment Spirituality of Patient [] Person of [place] [] Attends Christian of their [place] [] Believes in Prayer [] Reads Bible or Christianity materials [] There are Spiritual issues to be addressed Wire Threader Interventions [x] Prayer [] Active listening [] Non-anxious presence [] Spiritual/emotional support [] Crisis/trauma care [] Spiritual counseling [] Bereavement support [] Provided bereavement packet [] Provided Bible/devotional materials [] Provided toy/stuffed animal, coloring book to patient or family member [] Provided Communion [] Anointing/[place] [] Salvation [x] Completed spiritual assessment [] Other: Impact on Illness or Injury [] Angry [] Fearful [] Anxious [] Often cries [] Exhaustion [] Unable to work [] Unable to attend presybeterian [] Unable to walk/stand [] Unable to read [] Unable to drive [] Unable to eat/drink [] Unable to sleep [] Unable to be with family [] Patient intubated [] Other: Summary Time spent with patient
[2020-04-14] MEDS: ascorbic acid 500 mg Tablet PO (09:31)
[2020-04-14] MEDS: dexamethasone 4 mg Tablet 6 MG PO (09:31)
[2020-04-14] MEDS: atorvastatin 40 mg Tablet 20 MG PO (09:31)
[2020-04-14] MEDS: sertraline 50 mg Tablet PO (09:31)
[2020-04-14] MEDS: zinc gluconate 50 mg Tablet PO (09:31)
[2020-04-14] MEDS: aspirin 81 mg EC Tablet PO (09:31)
[2020-04-14 10:58] LABS: Glucose Point of Care 186 mg/dL (70-110)
--- NOTE | 2020-04-14 11:36 | PC.NURSE ---
Report called to Sheryl on Med Surg. No further questions at this time. Family has been notified.
--- NOTE | 2020-04-14 12:58 | P.PN_ITS ---
Subjective Subjective: Interval history: Patient was seen and examined this morning,currently she is complaining of worsening cough.Her SOB has remained unchanged. Complain of chest pain with inspiration. She has remained afebrile. Her other vitals and labs have been reviewed. Medications: Reviewed: Yes Vitals/I&O/Wt Last Vital Signs Temp 98.2 F 04/14/20 04:00 Pulse 55 L 04/14/20 11:30 Resp 27 H 04/14/20 11:30 BP 133/67 04/14/20 11:30 Pulse Ox 96 04/14/20 11:30 04/13/20 04/14/20 04/14/20 22:59 06:59 14:59 Intake Total 160 / 160 120 / 120 Balance 160 / 160 120 / 120 Weight last 48 hrs Weight 75.795 kg Weight 76.204 kg Physical Exam Const: COMMON NORMALS: patient oriented x3 HENMT: COMMON NORMALS: normocephalic and atraumatic HEAD & SCALP: normocephalic and atraumatic Resp: COMMON NORMALS: clear to auscultation bilaterally EFFORT & INSPECTION: Yes symmetric chest movement AUSCULTATION: clear to auscultation bilaterally Cardio: COMMON NORMALS: regular rate, regular rhythm, S1 normal heart sound present, S2 normal heart sound present, No gallops present (Cardio), No murmurs present (Cardio), No rub (Cardio) and Peripheral pulses 2+ throughout RATE: regular rate RHYTHM: regular rhythm HEART SOUNDS: S1 normal heart sound present and S2 normal heart sound present PERIPHERAL PULSES: Peripheral pulses 2+ throughout GI: COMMON NORMALS: Normal to inspection, nondistended, normoactive bowel sounds present, Soft to palpation, non-tender, No hepatosplenomegaly present and no masses AUSCULTATION: Yes normoactive bowel sounds PALPATION: Yes Soft to palpation and Yes No hepatosplenomegaly present RECTAL EXAM: deferred Extremity: COMMON NORMALS: no clubbing, cyanosis or edema and no pedal edema Neuro: COMMON NORMALS: patient oriented x3 Data : 04/14/20 04:17 04/14/20 04:17 Micro: Microbiology 04/14/20 04:17 Blood Culture - Preliminary Blood SPECIMEN COLLECTED 04/13/20 22:13 Blood Culture - Preliminary Blood SPECIMEN COLLECTED A&P Assessment and plan (1) Acute respiratory failure with hypoxia: Acute hypoxic respite failure 2/2 : COVID-19 pneumonia currently doing well on 5 L oxygen through [place] CTA chest: No P/E: Abnormal bilateral ground-glass opacities with greatest involvement on the left. Status: Acute (2) COVID-19: Start remdesivir along Decadron added vitamin C and zinc procalcitonin level:nl Lovenox 30 mg every 12 for now because of high D-dimer lEVOFLOXACIN 750 MG I.V Q24 H DAILY Status: Acute (3) Sepsis: Sepsis 2/2 PNA Meet sepsis criteria with leukocytosis and tachypnea, high lactic acid noted as well which seems secondary to hypoxia Status: Acute Additional A&P Information Cardiac diet DVT prophylaxis Lovenox 30 mg every 12 for now will reevaluate after CTA chest Goals of care discussed with the patient: Full code Attestations Medical Necessity Statement*: Patient needs to be in hospital for the management of COVID PNA Coding Level of Care Code Acute 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
[2020-04-14] MEDS: remdesivir 100 MG in sodium chloride 0.9% (100 ml) 100 ML IV (17:40)
[2020-04-14] MEDS: levothyroxine 25 mcg Tablet PO (20:43)
[2020-04-14] MEDS: lisinopril 20 mg Tablet 40 MG PO (20:43)
[2020-04-14] MEDS: levofloxacin-dextrose 5 % 750 MG/150 ML PREMIX 100 MG IV (22:05)
[2020-04-14] MEDS: guaiFENesin-dextromethorphan UDC 10 mL PO (22:06)
[2020-04-15] VITALS (8 sets, daily range): BP systolic 78–153; BP diastolic 40–84; PULSE 56–67; RESP 16–18; TEMP 35.7–36.6; O2SAT 92–96
[2020-04-15] MEDS: guaiFENesin-dextromethorphan UDC 10 mL PO ×5 (04:44→21:06)
[2020-04-15] MEDS: enoxaparin 30 mg/0.3 mL Syringe SUBCUT ×2 (04:44→15:42)
[2020-04-15 05:08] LABS: Glucose Point of Care 95 mg/dL (70-110)
--- NOTE | 2020-04-15 05:08 | PM.EVENT ---
Event Note Event Note: Rapid response: Patient sustained a fall Patient was laying on the floor when entered the room, she was coughing, she was awake alert oriented x3 GCS 15, she stated that she was feeling weak and that is why she fell on the floor, she denied chest pain, shortness of breath, vision changes, motor weakness, she just got out of bathroom after voiding urine Blood glucose check 95 Blood pressure 147 systolic Heart rate 60s Was saturating well on 5 L nasal cannula No neurological deficit Patient got up and laid in her bed, felt better after drinking juice Assessment Generalized weakness due to COVID-19 pneumonia Orthostatics negative, no active chest pain hemodynamically stable, borderline low glucose Plan Check CBC, CMP, D-dimer and troponin Patient was helped to lay on the floor by a nurse, she did not hit her head, no acute neurological deficit She is getting Lovenox 30 mg twice a day because of high D-dimer, currently saturating well on 5 L nasal cannula
--- NOTE | 2020-04-15 05:18 | PC.NURSE ---
RAPID RESPONSE: THIS NURSE ENTERED PATIENT ROOM TO GIVE LOVENOX AND ROBITUSSIN DM. PATIENT STATED SHE NEEDED TO USE THE BATHROOM. THIS NURSE ASSISTED PATENT TO BATHROOM WITH STAND BY ASSIST, WHEN PATIENT WAS FINISHED IN BATHROOM THIS NURSE APPROACHED PATIENT AT BATHROOM DOOR WAY. PATIENT STATED I FEEL DIZZY AND WEAK THIS NURSE TOOK PATIENTS HAND AND STARTED TO WALK TOWARDS BED, PATIENT WAS GRABBING ONTO DOOR FRAME OF BATHROOM AND THEN ON TO THE SINK. THIS NURSE TRIED TO GET PATIENT TO LET GO OF SINK SO SHE COULD GRAB ONTO WALL. PATIENT LEANED FORWARD AND TOUCHED FOREHEAD TO WALL, TRIED TO TAKE A STEP BUT COULD NOT AND WAS UNBALANCED. PATIENTS LEGS GOT WEAK THIS NURSE YELLED OUT THE DOOR FOR HELP, ASSISTED PATIENT TO THE FLOOR SLOWLY AND CONTROLLED WITH ASSISTANCE FROM [place] GONZALEZ LPN, PATIENT WAS STIFF AND ARMS CONTRACTED WITH [employer] WAS SAT ON BUTTOCKS THEN WAS ASSISTED TO SUPINE POSITION ON FLOOR WITH PILLOW UNDER HEAD, LIPS WERE CYANOTIC, THIS NURSE PUSHED CODE BUTTON WORKFORCE DEVELOPMENT SPECIALIST LIGHT PANEL NEAR BED. ALSO CALLED CODE LINE 6060 AND ASKED FOR A RAPID RESPONSE. WAS TOLD BY CLINICAL ORTHOPTIST THAT A CODE BLUE HAD BEEN CALLED ALREADY. THIS NURSE REQUESTED THE CODE BLUE BE CANCELLED AND A RAPID RESPONSE BE CALLED INSTEAD. CODE BLUE THEN A RAPID RESPONSE BOTH WHERE HEARD OVER HEAD ON PA. VITALS WERE TAKEN AT 0450 BLOOD PRESSURE 147/87, O2 84% ON 5L NC, HR 67. MULTIPLE NURSING STAFF ARRIVED INCLUDING CHARGE NURSE, MANAGER DECISION SUPPORT AND THE HOSPITALIST. . AT 0454 DR. VALLES ORDERED D -DIMER, LACTIC, CMP, TROPONIN LABS WHICH ARE STILL PENDING AND A SPOT CHECK OF BLOOD GLUCOSE WHICH RESULTED AT 95, HE REQUESTED JUICE FOR PATIENT TO DRINK. 0455 VITALS WERE RETAKEN WITH BP 160/92, HR 63 AND O2 95% ON 5L NC.THIS NURSE ALONG WITH DR. VALLES HELPED PATIENT UP FROM FLOOR, ASSISTED HER WALKING TO BED. ONCE IN BED PATIENT STARTED TO DRINK JUICE. DR. VALLES WAS SPEAKING WITH PATIENT, ICU NURSE ATTEMPTED TWICE TO GET A SECOND IV BUT WAS NOT SUCCESSFUL. AT 0507 VITALS WERE TAKEN AGAIN WITH BP 125/75, HR 66, 02 95% ON 5 L NC. PATIENT HAS NO COMPLAINTS OF CHEST OR BODY PAIN OR ANY DIZZINESS AT THIS TIME AND IS RESTING COMFORTABLY IN BED WATCHING TV. SEE RAPID RESPONSE PAPERWORK FOR FURTHER DETAIL.
[2020-04-15 05:32] LABS: Alanine Aminotransferase 23 U/L (0-33); Albumin Level 3.3 g/dL (3.5-5.2); Alkaline Phosphatase 47 IU/L (35-105); Anion Gap 16.9 (5-19); Aspartate Amino Transferase 26 U/L (0-32); Blood Urea Nitrogen 18 mg/dL (8-23); Calcium 8.7 mg/dL (8.5-10.5); Carbon Dioxide 23 mmol/L (22-29); Chloride 105 mmol/L (98-107); Globulin 2.5 g/dL (1.3-4.6); Glomerular Filtration Rate 124.2 mL/min (90-130); Glucose 94 mg/dL (65-115); Osmolality Calculated 294 mOsm/kg (285-295); Potassium 3.9 mmol/L (3.5-5.1); Sodium 141 mmol/L (136-145); Total Bilirubin 0.7 mg/dL (0.15-1.2); Total Protein 5.8 g/dL (6.6-8.7)
[2020-04-15 05:34] LABS: Lactate (Lactic Acid level) 2.7 mmol/L (0.5-2.2)
[2020-04-15 05:35] LABS: Troponin T (5th) Once 10 ng/L (0-10)
[2020-04-15] MEDS: aspirin 81 mg EC Tablet PO (08:35)
[2020-04-15] MEDS: zinc gluconate 50 mg Tablet PO (08:35)
[2020-04-15] MEDS: atorvastatin 40 mg Tablet 20 MG PO (08:36)
[2020-04-15] MEDS: ascorbic acid 500 mg Tablet PO (08:36)
[2020-04-15] MEDS: sertraline 50 mg Tablet PO (08:36)
[2020-04-15] MEDS: dexamethasone 4 mg Tablet 6 MG PO (08:37)
[2020-04-15 08:42] LABS: Basophils % 0.2 %; Hematocrit 45.2 % (37.0-47.0); Hemoglobin 15.1 g/dL (11.5-15.3); Lymphocytes # 1.6 10^3/uL (0.8-4.8); Lymphocytes % 12.2 %; Mean Corpuscular HGB Conc 33.4 g/dL (30.0-36.0); Mean Corpuscular Hemoglobin 30.7 pg (28.0-34.0); Mean Corpuscular Volume 91.9 fL (81-99); Monocytes # 0.9 10^3/uL (0.2-0.9); Monocytes % 6.7 %; Neutrophils # 10.73 10^3/uL (1.8-7.7); Neutrophils % 80.2 %; Nucleated Red Blood Cells % 0 %; Platelet Count 303 10^3/cmm (130-400); Red Blood Count 4.92 10^6/uL (4.1-5.3); White Blood Count 13.4 10^3/uL (4.0-10.0)
--- NOTE | 2020-04-15 16:17 | PC.NURSE ---
Software Licensing Analyst notified Dr Kelley of patient's orthostatic blood pressures
[2020-04-15] MEDS: remdesivir 100 MG in sodium chloride 0.9% (100 ml) 100 ML IV (17:35)
[2020-04-15] MEDS: sodium chloride 0.9% 1,000 ML 125 ML IV (17:35)
--- NOTE | 2020-04-15 19:30 | PM.PN ---
Subjective Subjective: Interval history: Patient was complaining of generalized weakness, though she says that her shortness of breath has improved.Rapid response was called last night as she had a fall.According to the patient she never fell,she was felling weak and hence while getting out of the bed she had to sit by the bedside. Today orthostatic vitals were checked, and her OHSv sign was positive. She has been started on NS@125CC/HR and has been placed on fall precaution. Medications: Reviewed: Yes Vitals/I&O/Wt Last Vital Signs Temp 97.1 F L 04/15/20 15:01 Pulse 59 L 04/15/20 15:01 Resp 17 04/15/20 15:01 BP 78/40 04/15/20 15:59 Pulse Ox 93 04/15/20 15:01 04/15/20 04/15/20 04/15/20 06:59 14:59 22:59 Intake Total 150 / 850 100 / 100 Output Total 400 / 400 500 / 500 400 / 900 Balance -250 / 450 -500 / -500 -300 / -800 Weight last 48 hrs Weight 77.519 kg Weight 75.795 kg Weight 76.204 kg Physical Exam Const: COMMON NORMALS: patient oriented x3 HENMT: COMMON NORMALS: normocephalic and atraumatic HEAD & SCALP: normocephalic and atraumatic Resp: COMMON NORMALS: clear to auscultation bilaterally EFFORT & INSPECTION: Yes symmetric chest movement AUSCULTATION: clear to auscultation bilaterally Cardio: COMMON NORMALS: regular rate, regular rhythm, S1 normal heart sound present, S2 normal heart sound present, No gallops present (Cardio), No murmurs present (Cardio), No rub (Cardio) and Peripheral pulses 2+ throughout RATE: regular rate RHYTHM: regular rhythm HEART SOUNDS: S1 normal heart sound present and S2 normal heart sound present PERIPHERAL PULSES: Peripheral pulses 2+ throughout GI: COMMON NORMALS: Normal to inspection, nondistended, normoactive bowel sounds present, Soft to palpation, non-tender, No hepatosplenomegaly present and no masses AUSCULTATION: Yes normoactive bowel sounds PALPATION: Yes Soft to palpation and Yes No hepatosplenomegaly present RECTAL EXAM: deferred Extremity: COMMON NORMALS: no clubbing, cyanosis or edema and no pedal edema Neuro: COMMON NORMALS: patient oriented x3 Data : 04/15/20 04:58 04/15/20 04:58 Micro: Microbiology 04/14/20 04:17 Blood Culture - Preliminary Blood NEGATIVE TO DATE 04/13/20 22:13 Blood Culture - Preliminary Blood NEGATIVE TO DATE A&P Assessment and plan (1) Acute respiratory failure with hypoxia: Acute hypoxic respite failure 2/2 : COVID-19 pneumonia currently doing well on 5 L oxygen through [place] CTA chest: No P/E: Abnormal bilateral ground-glass opacities with greatest involvement on the left. Status: Acute (2) COVID-19: Remdesivir for 5 days Decadron 6mg po daily for 10 days vitamin C zinc procalcitonin level:nl Lovenox 30 mg every 12 for now because of high D-dimer lEVOFLOXACIN 750 MG I.V Q24 H DAILY Monitor Xray chest Status: Acute (3) Sepsis: Sepsis 2/2 PNA Meet sepsis criteria with leukocytosis and tachypnea, high lactic acid noted as well which seems secondary to hypoxia Status: Acute (4) Hypothyroidism: Status: Acute (5) Hypertension: Status: Acute Additional A&P Information Cardiac diet DVT prophylaxis Lovenox 30 mg every 12 for now will reevaluate after CTA chest Goals of care discussed with the patient: Full code Attestations Medical Necessity Statement*: Patient needs to be hospital for management of COVID Pneumonia. 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
[2020-04-15] MEDS: levothyroxine 25 mcg Tablet PO (21:06)
[2020-04-15] MEDS: lisinopril 20 mg Tablet 40 MG PO (21:06)
[2020-04-15] MEDS: levofloxacin-dextrose 5 % 750 MG/150 ML PREMIX 100 MG IV (21:06)
[2020-04-16] VITALS (10 sets, daily range): BP systolic 109–157; BP diastolic 65–82; PULSE 63–85; RESP 16–20; TEMP 36.1–36.6; O2SAT 86–96
[2020-04-16] MEDS: guaiFENesin-dextromethorphan UDC 10 mL PO ×6 (00:35→22:26)
[2020-04-16] MEDS: enoxaparin 30 mg/0.3 mL Syringe SUBCUT (04:48)
[2020-04-16] MEDS: sodium chloride 0.9% 1,000 ML 125 ML IV (06:12)
[2020-04-16 06:15] LABS: Basophils % 0.1 %; Eosinophils % 0.1 %; Hematocrit 45.6 % (37.0-47.0); Hemoglobin 14.9 g/dL (11.5-15.3); Lymphocytes # 1.1 10^3/uL (0.8-4.8); Lymphocytes % 13.7 %; Mean Corpuscular HGB Conc 32.7 g/dL (30.0-36.0); Mean Corpuscular Hemoglobin 30.5 pg (28.0-34.0); Mean Corpuscular Volume 93.3 fL (81-99); Mean Platelet Volume 10.2 fL (7.4-10.4); Monocytes # 0.4 10^3/uL (0.2-0.9); Monocytes % 5.5 %; Neutrophils # 6.38 10^3/uL (1.8-7.7); Neutrophils % 79.4 %; Nucleated Red Blood Cells % 0 %; Platelet Count 240 10^3/cmm (130-400); Red Blood Count 4.89 10^6/uL (4.1-5.3); Red Cell Distribution Width 13.8 % (12.1-15.1)
[2020-04-16 06:30] LABS: D Dimer 1.28 ug/mIFEU (0-0.59)
[2020-04-16 06:33] LABS: Alanine Aminotransferase 22 U/L (0-33); Albumin Level 2.8 g/dL (3.5-5.2); Alkaline Phosphatase 46 IU/L (35-105); Blood Urea Nitrogen 12 mg/dL (8-23); Calcium 8.2 mg/dL (8.5-10.5); Carbon Dioxide 27 mmol/L (22-29); Chloride 106 mmol/L (98-107); Globulin 3.1 g/dL (1.3-4.6); Glomerular Filtration Rate 160.7 mL/min (90-130); Glucose 102 mg/dL (65-115); Osmolality Calculated 292 mOsm/kg (285-295); Sodium 141 mmol/L (136-145); Total Bilirubin 0.7 mg/dL (0.15-1.2); Total Protein 5.9 g/dL (6.6-8.7)
[2020-04-16 06:38] LABS: Anion Gap 11.9 (5-19); Aspartate Amino Transferase 23 U/L (0-32); Potassium 3.9 mmol/L (3.5-5.1)
[2020-04-16 07:27] LABS: Slide Review Slide Review Perform
[2020-04-16] MEDS: zinc gluconate 50 mg Tablet PO (10:51)
[2020-04-16] MEDS: sertraline 50 mg Tablet PO (10:52)
[2020-04-16] MEDS: dexamethasone 4 mg Tablet 6 MG PO (10:52)
[2020-04-16] MEDS: atorvastatin 40 mg Tablet 20 MG PO (10:52)
[2020-04-16] MEDS: aspirin 81 mg EC Tablet PO (10:52)
[2020-04-16] MEDS: ascorbic acid 500 mg Tablet PO (10:52)
--- NOTE | 2020-04-16 11:00 | P.PN_ITS ---
Subjective Subjective: Interval history: Patient was seen and examined this morning.Continues to complain of generalized weakness. Supplemental oxygen requirement is slightly increased to 6 L oxygen via nasal cannula. She has remained afebrile, other vitals and labs have been reviewed. Medications: Reviewed: Yes Vitals/I&O/Wt Last Vital Signs Temp 97.9 F 04/16/20 10:49 Pulse 63 04/16/20 10:49 Resp 18 04/16/20 10:49 BP 133/69 04/16/20 10:49 Pulse Ox 92 04/16/20 10:49 04/15/20 04/16/20 04/16/20 22:59 06:59 14:59 Intake Total 490 / 490 1720 / 2210 120 / 120 Output Total 400 / 900 400 / 1300 Balance 90 / -410 1320 / 910 120 / 120 Weight last 48 hrs Weight 77.519 kg Physical Exam Const: COMMON NORMALS: patient oriented x3 HENMT: COMMON NORMALS: normocephalic and atraumatic HEAD & SCALP: normocephalic and atraumatic Resp: OTHER: Minimal bilateral basal Rales Cardio: COMMON NORMALS: regular rate, regular rhythm, S1 normal heart sound present, S2 normal heart sound present, No gallops present (Cardio), No murmurs present (Cardio), No rub (Cardio) and Peripheral pulses 2+ throughout RATE: regular rate RHYTHM: regular rhythm HEART SOUNDS: S1 normal heart sound present and S2 normal heart sound present PERIPHERAL PULSES: Peripheral pulses 2+ throughout GI: COMMON NORMALS: Normal to inspection, nondistended, normoactive bowel sounds present, Soft to palpation, non-tender, No hepatosplenomegaly present and no masses AUSCULTATION: Yes normoactive bowel sounds PALPATION: Yes Soft to palpation and Yes No hepatosplenomegaly present RECTAL EXAM: deferred Extremity: COMMON NORMALS: no clubbing, cyanosis or edema and no pedal edema Neuro: COMMON NORMALS: patient oriented x3 Data : 04/16/20 05:48 04/16/20 05:48 Micro: Microbiology 04/14/20 04:17 Blood Culture - Preliminary Blood NEGATIVE TO DATE A&P Assessment and plan (1) Acute respiratory failure with hypoxia: Acute hypoxic respite failure 2/2 : COVID-19 pneumonia currently doing well on 5/6 L oxygen through [place] CTA chest: No P/E: Abnormal bilateral ground-glass opacities with greatest involvement on the left. Repeat chest x-ray:Bilateral patchy opacities more on the left than the right unchanged. Status: Acute (2) COVID-19: Remdesivir for 5 days Decadron 6mg po daily for 10 days vitamin C zinc procalcitonin level:nl Lovenox 40 mg every 12 for now because of high D-dimer lEVOFLOXACIN 750 MG I.V Q24 H DAILY Lasix as needed Monitor Xray chest Status: Acute (3) Sepsis: Sepsis 2/2 PNA Meet sepsis criteria with leukocytosis and tachypnea, high lactic acid noted as well which seems secondary to hypoxia Status: Acute (4) Hypothyroidism: Status: Acute (5) Hypertension: Currently blood pressure well controlled Status: Acute Additional A&P Information Cardiac diet DVT prophylaxis Lovenox Full code Attestations Medical Necessity Statement*: Patient needs to be in hospital for management of respiratory failure secondary to Covid pneumonia Coding Level of Care Code Acute 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
--- NOTE | 2020-04-16 13:56 | XR_ITS ---
WS: [id number] Portable AP upright chest, 04/16/2020 Clinical Data: sob Comparison: Portable chest, 04/13/2020. Findings: Patchy opacity left lung is moderate in density. There is minimal patchy opacity over the r ight lower lung. The right upper lung is clear. The heart is normal. No nodules, masses or effusions are seen. The pulmonary vascularity is not increased. The pulmonary vascularity is not increased. No pneumonia or pneumothorax is seen. XR/XR chest 1V portable [id number] Impression: Bilateral patchy opacities more on the left than the right unchanged.
[2020-04-16] MEDS: FUROsemide 10 mg/mL SDV 2mL 20 MG IVP (14:43)
[2020-04-16] MEDS: remdesivir 100 MG in sodium chloride 0.9% (100 ml) 100 ML IV (18:35)
[2020-04-16] MEDS: lisinopril 20 mg Tablet 40 MG PO (22:26)
[2020-04-16] MEDS: enoxaparin 40 mg/0.4 mL Syringe SUBCUT (22:26)
[2020-04-16] MEDS: levothyroxine 25 mcg Tablet PO (22:26)
[2020-04-16] MEDS: levofloxacin-dextrose 5 % 750 MG/150 ML PREMIX 100 MG IV (22:30)
[2020-04-16] MEDS: sodium chloride 0.9% 1,000 ML 75 ML IV (22:33)
[2020-04-17] VITALS (8 sets, daily range): BP systolic 119–138; BP diastolic 68–76; PULSE 67–108; RESP 17–91; TEMP 36.1–36.7; O2SAT 90–96; BMI 30.9
[2020-04-17] MEDS: guaiFENesin-dextromethorphan UDC 10 mL PO ×6 (01:53→23:27)
[2020-04-17 06:18] LABS: Basophils % 0.1 %; Eosinophils % 0.1 %; Hematocrit 43.6 % (37.0-47.0); Hemoglobin 14.6 g/dL (11.5-15.3); Lymphocytes # 0.9 10^3/uL (0.8-4.8); Lymphocytes % 6.3 %; Mean Corpuscular HGB Conc 33.5 g/dL (30.0-36.0); Mean Corpuscular Hemoglobin 30.7 pg (28.0-34.0); Mean Corpuscular Volume 91.8 fL (81-99); Mean Platelet Volume 9.9 fL (7.4-10.4); Monocytes # 0.8 10^3/uL (0.2-0.9); Monocytes % 5.2 %; Neutrophils # 12.91 10^3/uL (1.8-7.7); Nucleated Red Blood Cells % 0 %; Platelet Count 277 10^3/cmm (130-400); Red Blood Count 4.75 10^6/uL (4.1-5.3); Red Cell Distribution Width 13.4 % (12.1-15.1); White Blood Count 14.9 10^3/uL (4.0-10.0)
[2020-04-17 06:32] LABS: D Dimer 1.52 ug/mIFEU (0-0.59)
[2020-04-17] MEDS: dexamethasone 4 mg/mL INJ 6 MG IVP (06:35)
[2020-04-17 06:42] LABS: Alanine Aminotransferase 25 U/L (0-33); Albumin Level 2.7 g/dL (3.5-5.2); Alkaline Phosphatase 49 IU/L (35-105); Anion Gap 12.4 (5-19); Aspartate Amino Transferase 24 U/L (0-32); Blood Urea Nitrogen 8 mg/dL (8-23); Calcium 8.1 mg/dL (8.5-10.5); Carbon Dioxide 27 mmol/L (22-29); Chloride 105 mmol/L (98-107); Globulin 3.3 g/dL (1.3-4.6); Glomerular Filtration Rate 160.7 mL/min (90-130); Glucose 103 mg/dL (65-115); Osmolality Calculated 291 mOsm/kg (285-295); Potassium 3.4 mmol/L (3.5-5.1); Sodium 141 mmol/L (136-145); Total Bilirubin 0.8 mg/dL (0.15-1.2)
[2020-04-17] MEDS: enoxaparin 40 mg/0.4 mL Syringe SUBCUT ×2 (09:11→21:18)
[2020-04-17] MEDS: atorvastatin 40 mg Tablet 20 MG PO (09:13)
[2020-04-17] MEDS: ascorbic acid 500 mg Tablet PO (09:13)
[2020-04-17] MEDS: zinc gluconate 50 mg Tablet PO (09:13)
[2020-04-17] MEDS: sertraline 50 mg Tablet PO (09:13)
[2020-04-17] MEDS: aspirin 81 mg EC Tablet PO (09:13)
--- NOTE | 2020-04-17 15:45 | PM.PN ---
Subjective Subjective: Interval history: Patient was seen and examined this morning.No acute event overnight. She has remained afebrile, other vitals and labs have been reviewed. Medications: Reviewed: Yes Vitals/I&O/Wt Last Vital Signs Temp 97.8 F 04/17/20 12:00 Pulse 87 04/17/20 12:00 Resp 17 04/17/20 12:00 BP 133/76 04/17/20 12:00 Pulse Ox 96 04/17/20 12:00 04/17/20 04/17/20 04/17/20 06:59 14:59 22:59 Intake Total 150 / 1611.25 Output Total 1450 / 1850 Balance -1300 / -238.75 Weight last 48 hrs Weight 76.657 kg Physical Exam Const: COMMON NORMALS: patient oriented x3 HENMT: COMMON NORMALS: normocephalic and atraumatic HEAD & SCALP: normocephalic and atraumatic Resp: COMMON NORMALS: clear to auscultation bilaterally EFFORT & INSPECTION: Yes symmetric chest movement AUSCULTATION: clear to auscultation bilaterally OTHER: Minimal bilateral basal Rales Cardio: COMMON NORMALS: regular rate, regular rhythm, S1 normal heart sound present, S2 normal heart sound present, No gallops present (Cardio), No murmurs present (Cardio), No rub (Cardio) and Peripheral pulses 2+ throughout RATE: regular rate RHYTHM: regular rhythm HEART SOUNDS: S1 normal heart sound present and S2 normal heart sound present PERIPHERAL PULSES: Peripheral pulses 2+ throughout GI: COMMON NORMALS: Normal to inspection, nondistended, normoactive bowel sounds present, Soft to palpation, non-tender, No hepatosplenomegaly present and no masses AUSCULTATION: Yes normoactive bowel sounds PALPATION: Yes Soft to palpation and Yes No hepatosplenomegaly present RECTAL EXAM: deferred Extremity: COMMON NORMALS: no clubbing, cyanosis or edema and no pedal edema Neuro: COMMON NORMALS: patient oriented x3 Data : 04/17/20 06:06 04/17/20 06:06 A&P Assessment and plan (1) Acute respiratory failure with hypoxia: Acute hypoxic respite failure 2/2 : COVID-19 pneumonia currently doing well on 5/6 L oxygen through [place] CTA chest: No P/E: Abnormal bilateral ground-glass opacities with greatest involvement on the left. follow doppler lower extremity b/l Repeat chest x-ray:Bilateral patchy opacities more on the left than the right unchanged. Status: Acute (2) COVID-19: Remdesivir for 5 days Decadron 6mg po daily for 10 days vitamin C zinc procalcitonin level:nl Lovenox 40 mg every 12 for now because of high D-dimer lEVOFLOXACIN 750 MG I.V Q24 H DAILY Lasix as needed Monitor Xray chest Status: Acute (3) Sepsis: Sepsis 2/2 PNA Meet sepsis criteria with leukocytosis and tachypnea, high lactic acid noted as well which seems secondary to hypoxia Status: Acute (4) Hypothyroidism: Status: Acute (5) Hypertension: Currently blood pressure well controlled Status: Acute Additional A&P Information Cardiac diet DVT prophylaxis Lovenox Full code Attestations Medical Necessity Statement*: Patient needs to be in hospital for the management of r/f 2/2 COVID PNA Coding Level of Care Code Acute Tube Buffer for [facility] Fwd Diagnoses Acute respiratory failure with hypoxia J96.01 COVID-19 U07.1 Sepsis A41.9 Hypothyroidism E03.9 Hypertension I10
[2020-04-17] MEDS: sodium chloride 0.9% 1,000 ML 75 ML IV ×2 (17:47→21:25)
[2020-04-17] MEDS: remdesivir 100 MG in sodium chloride 0.9% (100 ml) 100 ML IV (17:47)
[2020-04-17] MEDS: levothyroxine 25 mcg Tablet PO (21:19)
[2020-04-17] MEDS: lisinopril 20 mg Tablet 40 MG PO (21:19)
[2020-04-17] MEDS: levofloxacin-dextrose 5 % 750 MG/150 ML PREMIX 100 MG IV (21:19)
[2020-04-18] VITALS (13 sets, daily range): BP systolic 107–158; BP diastolic 65–80; PULSE 70–97; RESP 18–22; TEMP 36.4–37.7; O2SAT 86–98
[2020-04-18 05:07] LABS: ABG PCO2 31.8 mmHg (35-45); ABG PH Result 7.51 (7.35-7.45); Alveolar-Arterial Oxygen Gradi 8.8 mmHg (5-10); Arterial Blood Gas Hematocrit 43.8 % (37-47); Base Excess ABG 3.2 mmol/L (-2.0-2.0); Blood Gas Sample Type Arterial; Carboxyhemoglobin 0.6 %THgb (0.4-20.1); HCO3 ABG 25.6 mmol/L (22-26); HGB O2 Sat 83.6 % (95-100); Ionized Calcium Level - ABG 1.1 mmol/L (1.1-1.4); Methemoglobin 0.9 % (0.4-1.5); Oxygen Saturation ABG 84.9; PO2 ABG 43.5 mmHg (80.0-100.0); Potassium Level - ABG 3.4 mmol/L (3.5-5.0); Total Hemoglobin 14.3 g/dL (12-16)
[2020-04-18 05:10] LABS: Blood Gas Operator Identificat HARKR; Blood Gas Sample Site Brachial, right; Oxygen Device OXY MASK
--- NOTE | 2020-04-18 05:27 | PC.NURSE ---
Pt was satting between 77-86% on 6L NC. Pt was placed into high roberson's position and encouraged to take slow deep breaths and cough. Pt had shallow breaths and began getting anxious. This nurse reassured pt that I would not leave bedside until pt was stable. Pt coached with breathing. This nurse put oxymask on pt and slowly began increasing oxygen. Pt was still dropping to high 70s-to low 80s% on 10L NC. Pt was then placed on non-rebreather and turned up all the way. Pt took several minutes to recover into the 90s%. Respiratory was called to bedside, ABG was done. Once pt recovered to 90%, pt was switched back to oxymask and placed in prone position. O2 sats came up to 97-99%. O2 was slowly decreased to 12L oxymask while proning. Pt satting at 92-94% and stating she is feeling better except for her arm was cramping up.
--- NOTE | 2020-04-18 06:00 | USCV_ITS ---
Tianna Mckeon Age: 65 Gender: F : 1955 Exam Date: 04/18/2020 13:21 Ordering Phys: Darius Kelley MD Technologist: Aster Pérez [place] [facility] [place]: [place] HISTORY: Eval for DVT PROCEDURES: Venous duplex imaging was performed in bilateral lower extremities. The following venous structures were evaluated: common femoral vein, profunda vein, proximal portion of the greater saphenous vein, superficial femoral vein, and the popliteal vein. In addition, the posterior tibial and peroneal trunk were evaluated. Serial compression, augmentation maneuvers, and spectral Doppler flow evaluation were performed. FINDINGS: Normal 2-D Doppler and augmentation and compressibility throughout the lower extremity venous structures. Additional imaging through the proximal calf veins also reveals no thrombus. Limited evaluation of the greater saphenous vein is patent with no thrombus. CONCLUSIONS No DVT bilateral lower extremities. Dr. Kiley Hayes DO (Electronically Signed) Final Date: 18 April 2020 14:54 S
[2020-04-18] MEDS: dexamethasone 4 mg/mL INJ 6 MG IVP (06:01)
[2020-04-18 08:41] LABS: Basophils % 0.2 %; Eosinophils # 0.1 10^3/uL (0.0-0.8); Eosinophils % 0.6 %; Hematocrit 42.2 % (37.0-47.0); Hemoglobin 14.1 g/dL (11.5-15.3); Lymphocytes # 0.5 10^3/uL (0.8-4.8); Lymphocytes % 3.3 %; Mean Corpuscular HGB Conc 33.4 g/dL (30.0-36.0); Mean Corpuscular Hemoglobin 30.7 pg (28.0-34.0); Mean Corpuscular Volume 91.7 fL (81-99); Mean Platelet Volume 9.8 fL (7.4-10.4); Monocytes # 0.4 10^3/uL (0.2-0.9); Monocytes % 2.5 %; Neutrophils # 13.49 10^3/uL (1.8-7.7); Neutrophils % 92.2 %; Nucleated Red Blood Cells % 0 %; Platelet Count 273 10^3/cmm (130-400); Red Cell Distribution Width 13.5 % (12.1-15.1); White Blood Count 14.7 10^3/uL (4.0-10.0)
[2020-04-18 08:48] LABS: D Dimer 1.68 ug/mIFEU (0-0.59)
[2020-04-18 08:49] LABS: Alanine Aminotransferase 20 U/L (0-33); Albumin Level 2.5 g/dL (3.5-5.2); Alkaline Phosphatase 54 IU/L (35-105); Anion Gap 9.8 (5-19); Aspartate Amino Transferase 24 U/L (0-32); Blood Urea Nitrogen 10 mg/dL (8-23); Calcium 7.8 mg/dL (8.5-10.5); Carbon Dioxide 26 mmol/L (22-29); Chloride 108 mmol/L (98-107); Globulin 3.2 g/dL (1.3-4.6); Glomerular Filtration Rate 160.7 mL/min (90-130); Glucose 113 mg/dL (65-115); Osmolality Calculated 290 mOsm/kg (285-295); Potassium 3.8 mmol/L (3.5-5.1); Sodium 140 mmol/L (136-145); Total Bilirubin 0.9 mg/dL (0.15-1.2); Total Protein 5.7 g/dL (6.6-8.7)
--- NOTE | 2020-04-18 10:00 | PC.RESP ---
Pt sleeping at this time. Medication, Advair, late d/t code blue this a.m.
[2020-04-18] MEDS: ascorbic acid 500 mg Tablet PO (11:04)
[2020-04-18] MEDS: aspirin 81 mg EC Tablet PO (11:04)
[2020-04-18] MEDS: sertraline 50 mg Tablet PO (11:04)
[2020-04-18] MEDS: zinc gluconate 50 mg Tablet PO (11:05)
[2020-04-18] MEDS: enoxaparin 40 mg/0.4 mL Syringe SUBCUT ×2 (11:05→20:54)
[2020-04-18] MEDS: atorvastatin 40 mg Tablet 20 MG PO (11:08)
--- NOTE | 2020-04-18 12:05 | P.PN_ITS ---
Subjective Subjective: Interval history: Patient was seen and examined this morning.Her supplemental oxygen requirement has gone up.Currently she is on HHFONC.Currently she is on 30 ls and 45% Fio2.She was educated and enocouraged to practise self proning. She has remained afebrile, other vitals and labs have been reviewed. Medications: Reviewed: Yes Vitals/I&O/Wt Last Vital Signs Temp 99.9 F H 04/18/20 11:15 Pulse 78 04/18/20 11:15 Resp 20 H 04/18/20 11:15 BP 158/80 04/18/20 11:15 Pulse Ox 98 04/18/20 11:15 04/17/20 04/18/20 04/18/20 22:59 06:59 14:59 Intake Total 1820.00 / 2060.00 150 / 2210.00 Balance 1820.00 / 2060.00 150 / 2210.00 Weight last 48 hrs Weight 78.608 kg Weight 76.657 kg Physical Exam Const: COMMON NORMALS: patient oriented x3 HENMT: COMMON NORMALS: normocephalic and atraumatic HEAD & SCALP: normocephalic and atraumatic Resp: COMMON NORMALS: clear to auscultation bilaterally EFFORT & INSPECTION: Yes symmetric chest movement AUSCULTATION: clear to auscultation bilaterally OTHER: Minimal bilateral basal Rales Cardio: COMMON NORMALS: regular rate, regular rhythm, S1 normal heart sound present, S2 normal heart sound present, No gallops present (Cardio), No murmurs present (Cardio), No rub (Cardio) and Peripheral pulses 2+ throughout RATE: regular rate RHYTHM: regular rhythm HEART SOUNDS: S1 normal heart sound present and S2 normal heart sound present PERIPHERAL PULSES: Peripheral pulses 2+ throughout GI: COMMON NORMALS: Normal to inspection, nondistended, normoactive bowel sounds present, Soft to palpation, non-tender, No hepatosplenomegaly present and no masses AUSCULTATION: Yes normoactive bowel sounds PALPATION: Yes Soft to palpation and Yes No hepatosplenomegaly present RECTAL EXAM: deferred Extremity: COMMON NORMALS: no clubbing, cyanosis or edema and no pedal edema Neuro: COMMON NORMALS: patient oriented x3 Data : 04/18/20 08:20 04/18/20 08:20 A&P Assessment and plan (1) Acute respiratory failure with hypoxia: Acute hypoxic respite failure 2/2 : COVID-19 pneumonia currently doing well on 5/6 L oxygen through [place] CTA chest: No P/E: Abnormal bilateral ground-glass opacities with greatest involvement on the left. follow doppler lower extremity b/l Repeat chest x-ray:Bilateral patchy opacities more on the left than the right unchanged. Status: Acute (2) COVID-19: Remdesivir 5/5 days Decadron 6mg I.V daily for 10 days vitamin C zinc procalcitonin level:nl Lovenox 40 mg every 12 for now because of high D-dimer lEVOFLOXACIN 750 MG I.V Q24 H DAILY Lasix 40 MG I.V Daily Monitor Xray chest Status: Acute (3) Sepsis: Sepsis 2/2 PNA Meet sepsis criteria with leukocytosis and tachypnea, high lactic acid noted as well which seems secondary to hypoxia Status: Acute (4) Hypothyroidism: Status: Acute (5) Hypertension: Currently blood pressure well controlled Status: Acute Additional A&P Information Cardiac diet DVT prophylaxis Lovenox Full code Attestations Medical Necessity Statement*: Patient needs to be in hospital for the management of r/f 2/2 COVID PNA Coding Level of Care Code Acute 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
[2020-04-18] MEDS: guaiFENesin-dextromethorphan UDC 10 mL PO ×2 (18:48→22:38)
[2020-04-18] MEDS: FUROsemide 10 mg/mL SDV 4mL 40 MG IVP (18:48)
[2020-04-18] MEDS: levofloxacin-dextrose 5 % 750 MG/150 ML PREMIX 100 MG IV (20:54)
[2020-04-18] MEDS: lisinopril 20 mg Tablet 40 MG PO (20:54)
[2020-04-18] MEDS: levothyroxine 25 mcg Tablet PO (20:54)
[2020-04-19] VITALS (14 sets, daily range): BP systolic 73–118; BP diastolic 39–76; PULSE 58–108; RESP 16–22; TEMP 36.6–37; O2SAT 87–100; BMI 30.7
[2020-04-19] MEDS: guaiFENesin-dextromethorphan UDC 10 mL PO ×6 (02:30→22:19)
--- NOTE | 2020-04-19 06:00 | XRR_ITS ---
PROCEDURE INFORMATION: Exam: XR Chest Exam date and time: 04/19/2020 9:08 AM Age: 65 years old Clinical indication: Shortness of breath; Additional info: Pna TECHNIQUE: Imaging protocol: XR of the chest Views: 1 view. COMPARISON: CR XR chest 1V portable [id number] 04/16/2020 1:53 PM FINDINGS: Lungs: Emphysematous change, interstitial prominence, and worsening left-sided airspace disease. Mild additional right basilar airspace disease. Pleural spaces: No significant pleural effusion. Heart/Mediastinum: No cardiomegaly. Bones/joints: Degenerative change. XR/XR chest 1V portable [id number] IMPRESSION: Emphysematous change, interstitial prominence, and worsening left-sided airspace disease.
[2020-04-19] MEDS: dexamethasone 4 mg/mL INJ 6 MG IVP (06:28)
[2020-04-19] MEDS: atorvastatin 40 mg Tablet 20 MG PO (08:05)
[2020-04-19] MEDS: polyethylene glycol 3350 Pkt 17 gm PO (08:05)
[2020-04-19] MEDS: sertraline 50 mg Tablet PO (08:05)
[2020-04-19] MEDS: enoxaparin 40 mg/0.4 mL Syringe SUBCUT ×2 (08:05→20:31)
[2020-04-19] MEDS: ascorbic acid 500 mg Tablet PO (08:05)
[2020-04-19] MEDS: aspirin 81 mg EC Tablet PO (08:05)
[2020-04-19] MEDS: zinc gluconate 50 mg Tablet PO (08:05)
[2020-04-19] MEDS: sodium chloride 0.9% 1,000 ML 75 ML IV (13:01)
--- NOTE | 2020-04-19 13:37 | PM.PN ---
Subjective Subjective: Interval history: Patient was seen and examined this morning.She was felling better today.was on HHFONC.Currently she is on 30 ls and 45% Fio2. She has remained afebrile, other vitals and labs have been reviewed. Medications: Reviewed: Yes Vitals/I&O/Wt Last Vital Signs Temp 98.5 F 04/19/20 13:00 Pulse 78 04/19/20 13:00 Resp 17 04/19/20 13:00 BP 111/76 04/19/20 13:00 Pulse Ox 87 L 04/19/20 11:39 04/18/20 04/19/20 04/19/20 22:59 06:59 14:59 Intake Total 1270 / 1390 Output Total 500 / 500 1600 / 2100 Balance 770 / 890 -1600 / -710 Weight last 48 hrs Weight 76.26 kg Weight 78.608 kg Physical Exam Const: COMMON NORMALS: patient oriented x3 HENMT: COMMON NORMALS: normocephalic and atraumatic HEAD & SCALP: normocephalic and atraumatic Resp: COMMON NORMALS: clear to auscultation bilaterally EFFORT & INSPECTION: Yes symmetric chest movement AUSCULTATION: clear to auscultation bilaterally OTHER: Minimal bilateral basal Rales Cardio: COMMON NORMALS: regular rate, regular rhythm, S1 normal heart sound present, S2 normal heart sound present, No gallops present (Cardio), No murmurs present (Cardio), No rub (Cardio) and Peripheral pulses 2+ throughout RATE: regular rate RHYTHM: regular rhythm HEART SOUNDS: S1 normal heart sound present and S2 normal heart sound present PERIPHERAL PULSES: Peripheral pulses 2+ throughout GI: COMMON NORMALS: Normal to inspection, nondistended, normoactive bowel sounds present, Soft to palpation, non-tender, No hepatosplenomegaly present and no masses AUSCULTATION: Yes normoactive bowel sounds PALPATION: Yes Soft to palpation and Yes No hepatosplenomegaly present RECTAL EXAM: deferred Extremity: COMMON NORMALS: no clubbing, cyanosis or edema and no pedal edema Neuro: COMMON NORMALS: patient oriented x3 Data : 04/18/20 08:20 04/18/20 08:20 Micro: Microbiology 04/14/20 04:17 Blood Culture - Final Blood NO GROWTH AFTER 5 DAYS 04/13/20 22:13 Blood Culture - Final Blood NO GROWTH AFTER 5 DAYS A&P Assessment and plan (1) Acute respiratory failure with hypoxia: Acute hypoxic respite failure 2/2 : COVID-19 pneumonia currently on HHFONC CTA chest: No P/E: Abnormal bilateral ground-glass opacities with greatest involvement on the left. follow doppler lower extremity b/l Repeat chest x-ray:Bilateral patchy opacities more on the left than the right unchanged. Status: Acute (2) COVID-19: Remdesivir 5/5 days Decadron 6mg I.V daily for 10 days vitamin C zinc procalcitonin level:nl Lovenox 40 mg every 12 for now because of high D-dimer lEVOFLOXACIN 750 MG I.V Q24 H DAILY Lasix 40 MG I.V Daily Monitor Xray chest Status: Acute (3) Sepsis: Sepsis 2/2 PNA Meet sepsis criteria with leukocytosis and tachypnea, high lactic acid noted as well which seems secondary to hypoxia Status: Acute (4) Hypothyroidism: Status: Acute (5) Hypertension: Currently blood pressure well controlled Status: Acute Additional A&P Information Cardiac diet DVT prophylaxis Lovenox Full code Attestations Medical Necessity Statement*: Patient needs to be in hospital for the management of R/F 2/2 COVID PNA Coding Level of Care Code Acute 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
[2020-04-19] MEDS: FUROsemide 10 mg/mL SDV 4mL 40 MG IVP (17:31)
[2020-04-19] MEDS: levothyroxine 25 mcg Tablet PO (20:31)
[2020-04-19] MEDS: levofloxacin-dextrose 5 % 750 MG/150 ML PREMIX 100 MG IV (20:50)
[2020-04-20] VITALS (9 sets, daily range): BP systolic 100–139; BP diastolic 63–83; PULSE 72–102; RESP 18–22; TEMP 36.3–37.2; O2SAT 86–97
[2020-04-20] MEDS: sodium chloride 0.9% 1,000 ML 75 ML IV (00:03)
[2020-04-20] MEDS: guaiFENesin-dextromethorphan UDC 10 mL PO ×6 (02:16→22:48)
[2020-04-20] MEDS: dexamethasone 4 mg/mL INJ 6 MG IVP (06:34)
[2020-04-20 07:02] LABS: Basophils % 0.2 %; Eosinophils # 0.2 10^3/uL (0.0-0.8); Eosinophils % 1.5 %; Hematocrit 42.9 % (37.0-47.0); Hemoglobin 14.4 g/dL (11.5-15.3); Lymphocytes % 6.1 %; Mean Corpuscular HGB Conc 33.6 g/dL (30.0-36.0); Mean Corpuscular Hemoglobin 30.7 pg (28.0-34.0); Mean Corpuscular Volume 91.5 fL (81-99); Mean Platelet Volume 10.2 fL (7.4-10.4); Monocytes # 0.5 10^3/uL (0.2-0.9); Monocytes % 2.9 %; Neutrophils # 13.94 10^3/uL (1.8-7.7); Neutrophils % 87.2 %; Nucleated Red Blood Cells % 0 %; Platelet Count 300 10^3/cmm (130-400); Red Blood Count 4.69 10^6/uL (4.1-5.3); Red Cell Distribution Width 14.2 % (12.1-15.1)
[2020-04-20 07:17] LABS: D Dimer 2.09 ug/mIFEU (0-0.59)
--- NOTE | 2020-04-20 07:24 | PC.NURSE ---
Patients nurse called RT about her low oxygen level.
[2020-04-20 07:32] LABS: Blood Urea Nitrogen 14 mg/dL (8-23); Calcium 7.9 mg/dL (8.5-10.5); Carbon Dioxide 26 mmol/L (22-29); Chloride 106 mmol/L (98-107); Glomerular Filtration Rate 160.7 mL/min (90-130); Glucose 102 mg/dL (65-115); Osmolality Calculated 295 mOsm/kg (285-295); Sodium 142 mmol/L (136-145)
--- NOTE | 2020-04-20 07:41 | PC.NURSE ---
Patients oxygen has been 97-100 all night on 8L. This morning at shift change patient dropped into the low 80's. Respiratory was called and Doctor was notified. Told to leave her on the 8L and let her catch up. Patient was repositioned in bed. Patients O2 is ranging from 80-85 right now. Patient handed off to CHILO Conner.
[2020-04-20 07:53] LABS: Anion Gap 13.6 (5-19)
[2020-04-20 07:54] LABS: Potassium 3.6 mmol/L (3.5-5.1)
[2020-04-20] MEDS: aspirin 81 mg EC Tablet PO (08:15)
[2020-04-20] MEDS: zinc gluconate 50 mg Tablet PO (08:15)
[2020-04-20] MEDS: polyethylene glycol 3350 Pkt 17 gm PO (08:15)
[2020-04-20] MEDS: midodrine 5 mg TABLET PO ×3 (08:15→20:39)
[2020-04-20] MEDS: atorvastatin 40 mg Tablet 20 MG PO (08:15)
[2020-04-20] MEDS: ascorbic acid 500 mg Tablet PO (08:15)
[2020-04-20] MEDS: sertraline 50 mg Tablet PO (08:16)
[2020-04-20] MEDS: enoxaparin 40 mg/0.4 mL Syringe SUBCUT ×2 (08:22→20:37)
--- NOTE | 2020-04-20 10:10 | PC.NURSE ---
Turned IV fluids off as ordered.
[2020-04-20] MEDS: FUROsemide 10 mg/mL SDV 4mL 40 MG IVP (12:23)
--- NOTE | 2020-04-20 13:08 | P.PN_ITS ---
Subjective Subjective: Interval history: Patient was seen and examined this morning.She was felling better today.She has improvement in her cough, supplemental oxygen requirement is comin down.She is doing well on [place] 8ls. She has remained afebrile, other vitals and labs have been reviewed. Medications: Reviewed: Yes Vitals/I&O/Wt Last Vital Signs Temp 97.7 F 04/20/20 11:05 Pulse 102 H 04/20/20 11:05 Resp 18 04/20/20 11:05 BP 113/70 04/20/20 11:05 Pulse Ox 91 04/20/20 11:05 04/19/20 04/20/20 04/20/20 22:59 06:59 14:59 Intake Total 1027.5 / 1027.5 922.5 / 922.5 Output Total 500 / 500 1700 / 2200 700 / 700 Balance -500 / -500 -672.5 / -1172.5 222.5 / 222.5 Weight last 48 hrs Weight 78.744 kg Weight 76.26 kg Physical Exam 2 Const: COMMON NORMALS: patient oriented x3 HENMT: COMMON NORMALS: normocephalic and atraumatic HEAD & SCALP: normocephalic and atraumatic Resp: COMMON NORMALS: clear to auscultation bilaterally EFFORT & INSPECTION: Yes symmetric chest movement AUSCULTATION: clear to auscultation bilaterally OTHER: Minimal bilateral basal Rales Cardio: COMMON NORMALS: regular rate, regular rhythm, S1 normal heart sound present, S2 normal heart sound present, No gallops present (Cardio), No murmurs present (Cardio), No rub (Cardio) and Peripheral pulses 2+ throughout RATE: regular rate RHYTHM: regular rhythm HEART SOUNDS: S1 normal heart sound present and S2 normal heart sound present PERIPHERAL PULSES: Peripheral pulses 2+ throughout GI: COMMON NORMALS: Normal to inspection, nondistended, normoactive bowel sounds present, Soft to palpation, non-tender, No hepatosplenomegaly present and no masses AUSCULTATION: Yes normoactive bowel sounds PALPATION: Yes Soft to palpation and Yes No hepatosplenomegaly present RECTAL EXAM: deferred Extremity: COMMON NORMALS: no clubbing, cyanosis or edema and no pedal edema Neuro: COMMON NORMALS: patient oriented x3 Data : 04/20/20 06:44 04/20/20 06:44 A&P Assessment and plan (1) Acute respiratory failure with hypoxia: Acute hypoxic respite failure 2/2 : COVID-19 pneumonia Initially on suplemetal oxygen through [place]---> HFONC-- >HHFONC ---> NC : 10 Ls CTA chest: No P/E: Abnormal bilateral ground-glass opacities with greatest involvement on the left. doppler lower extremity b/l vein : No DVT chest x-ray. /6 : Emphysematous change, interstitial prominence, and worsening left-sided airspace disease. Blood Culture : No Growth Status: Acute (2) COVID-19: Completed Remdesivir 5/5 days course Decadron 6mg I.V daily for 10 days vitamin C zinc procalcitonin level:nl Lovenox 40 mg every 12 for now because of high D-dimer Levofloxacin 750 MG I.V Q24 H DAILY Lasix 40 MG I.V Daily Monitor Xray chest Status: Acute (3) Sepsis: Sepsis 2/2 PNA Meet sepsis criteria with leukocytosis and tachypnea, high lactic acid noted as well which seems secondary to hypoxia Status: Acute (4) Hypothyroidism: Status: Acute (5) Hypertension: Currently episodic borderline hypotension. Midodrine 5 mg po TID Added. Lisinopril Discontinued. Monitor Blood Pressure for now. Status: Acute Additional A&P Information Cardiac diet DVT prophylaxis Lovenox Full code Attestations Medical Necessity Statement*: Patient needs to be in hospital for the management of R/F 2/2 COVID PNA Coding Level of Care Code Acute Optomechanical Technician for [facility] Fwd Exam Detailed Diagnoses Acute respiratory failure with hypoxia J96.01 COVID-19 U07.1 Sepsis A41.9 Hypothyroidism E03.9 Hypertension I10
[2020-04-20] MEDS: levofloxacin-dextrose 5 % 750 MG/150 ML PREMIX 100 MG IV (20:32)
[2020-04-20] MEDS: levothyroxine 25 mcg Tablet PO (20:38)
[2020-04-21] VITALS (9 sets, daily range): BP systolic 110–150; BP diastolic 69–81; PULSE 59–87; RESP 17–20; TEMP 36.6–36.8; O2SAT 90–94
[2020-04-21] MEDS: guaiFENesin-dextromethorphan UDC 10 mL PO ×6 (02:44→22:15)
[2020-04-21 05:39] LABS: Basophils % 0.3 %; Eosinophils # 0.2 10^3/uL (0.0-0.8); Eosinophils % 1.2 %; Hematocrit 41.6 % (37.0-47.0); Hemoglobin 14.2 g/dL (11.5-15.3); Lymphocytes # 0.9 10^3/uL (0.8-4.8); Lymphocytes % 5.9 %; Mean Corpuscular HGB Conc 34.1 g/dL (30.0-36.0); Mean Corpuscular Hemoglobin 30.5 pg (28.0-34.0); Mean Corpuscular Volume 89.3 fL (81-99); Mean Platelet Volume 9.9 fL (7.4-10.4); Monocytes # 0.6 10^3/uL (0.2-0.9); Monocytes % 3.7 %; Neutrophils # 13.01 10^3/uL (1.8-7.7); Nucleated Red Blood Cells % 0 %; Platelet Count 312 10^3/cmm (130-400); Red Blood Count 4.66 10^6/uL (4.1-5.3); Red Cell Distribution Width 13.7 % (12.1-15.1)
[2020-04-21 06:04] LABS: Anion Gap 11.7 (5-19); Blood Urea Nitrogen 19 mg/dL (8-23); Calcium 8.1 mg/dL (8.5-10.5); Carbon Dioxide 27 mmol/L (22-29); Chloride 103 mmol/L (98-107); Glomerular Filtration Rate 160.7 mL/min (90-130); Glucose 123 mg/dL (65-115); Osmolality Calculated 290 mOsm/kg (285-295); Potassium 3.7 mmol/L (3.5-5.1); Sodium 138 mmol/L (136-145)
[2020-04-21] MEDS: dexamethasone 4 mg/mL INJ 6 MG IVP (06:07)
[2020-04-21] MEDS: aspirin 81 mg EC Tablet PO (08:12)
[2020-04-21] MEDS: zinc gluconate 50 mg Tablet PO (08:12)
[2020-04-21] MEDS: ascorbic acid 500 mg Tablet PO (08:12)
[2020-04-21] MEDS: polyethylene glycol 3350 Pkt 17 gm PO (08:12)
[2020-04-21] MEDS: enoxaparin 40 mg/0.4 mL Syringe SUBCUT ×2 (08:12→20:36)
[2020-04-21] MEDS: midodrine 5 mg TABLET PO ×3 (08:12→20:37)
[2020-04-21] MEDS: atorvastatin 40 mg Tablet 20 MG PO (08:13)
[2020-04-21] MEDS: sertraline 50 mg Tablet PO (08:13)
[2020-04-21] MEDS: FUROsemide 10 mg/mL SDV 4mL 40 MG IVP (08:13)
--- NOTE | 2020-04-21 11:01 | PC.SOCIAL ---
IMM updated Updated pt's daughter on Pg 2 IMM. No questions voiced. Provided pt a copy. Initialed, dated, & timed copy in chart.
--- NOTE | 2020-04-21 17:47 | PM.PN ---
Subjective Subjective: Interval history: Feels subjectively improved. She was able to sit about an hour in bedside chair today, he did within the room. PT assessment sought. Continues to be on 8 L/min via high flow nasal cannula, though this is an improvement over previously, pulling volumes of 1100 cc with spirometer. 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 CTA chest: No P/E: Abnormal bilateral ground-glass opacities with greatest involvement on the left. doppler lower extremity b/l vein : No DVT chest x-ray. 3/6 : Emphysematous change, interstitial prominence, and worsening left-sided airspace disease. Blood Culture : No Growth Status: Acute (2) COVID-19: Completed Remdesivir 5/5 days course Decadron 6mg I.V daily for 10 days vitamin C zinc procalcitonin level:nl Lovenox 40 mg every 12 for now because of high D-dimer Levofloxacin 750 MG I.V Q24 H DAILY Discontinue Lasix today. Monitor Xray chest Status: Acute (3) Sepsis: Sepsis 2/2 PNA Meet sepsis criteria with leukocytosis and tachypnea, high lactic acid noted as well which seems secondary to hypoxia Status: Acute (4) Hypothyroidism: Status: Acute (5) Hypertension: Currently episodic borderline orthostatic hypotension. Midodrine 5 mg po TID , currently improved Lisinopril Discontinued. Monitor Blood Pressure for now., Currently well controlled Status: Acute Additional A&P Information Cardiac diet DVT prophylaxis Lovenox Full code Attestations Medical Necessity Statement*: COVID-19 pneumonia, currently seems to be stabilizing with oxygen requirements, ambulating in the room, home O2 eval tomorrow, likely discharge in the upcoming 24 to 48 hours if continues to improve. Discontinue IV Lasix and monitor for any respiratory decompensation. Coding Level of Care Code Acute Teacher Of The Deaf/Hard Of Hearing for [facility] Diagnoses Acute respiratory failure with hypoxia J96.01 COVID-19 U07.1 Sepsis A41.9 Hypothyroidism E03.9 Hypertension I10
[2020-04-21] MEDS: levothyroxine 25 mcg Tablet PO (20:37)
[2020-04-21] MEDS: levofloxacin-dextrose 5 % 750 MG/150 ML PREMIX 100 MG IV (20:37)
[2020-04-22] VITALS (10 sets, daily range): BP systolic 119–160; BP diastolic 73–87; PULSE 70–89; RESP 16–18; TEMP 36.6–37.1; O2SAT 89–94
[2020-04-22] MEDS: guaiFENesin-dextromethorphan UDC 10 mL PO ×6 (02:31→23:11)
--- NOTE | 2020-04-22 06:00 | XRR_ITS ---
PROCEDURE INFORMATION: Exam: XR Chest Exam date and time: 04/22/2020 6:20 AM Age: 65 years old Clinical indication: Condition or disease; Lung condition and disease; Pneumonia; Prior surgery; Surgery type: Lumpectomy breast; Additional info: Covid pna, follow infiltrates TECHNIQUE: Imaging protocol: XR of the chest Views: 1 view. COMPARISON: CR (CHEST, ) 04/19/2020 8:56 AM FINDINGS: Lungs: There is mild partial clearing of the infiltrates in the left lung. Small stable hazy infiltrates are present in the right base. Pleural spaces: Unremarkable. No pleural effusion. No pneumothorax. Heart/Mediastinum: Unremarkable. No cardiomegaly. Bones/joints: Unremarkable. XR/XR chest 1V portable [id number] IMPRESSION: Mild partial clearing of the left pulmonary infiltrates.
[2020-04-22 06:17] LABS: Basophils # 0.1 10^3/uL (0.0-0.1); Basophils % 0.3 %; Eosinophils # 0.1 10^3/uL (0.0-0.8); Eosinophils % 0.6 %; Hematocrit 42.5 % (37.0-47.0); Hemoglobin 14.2 g/dL (11.5-15.3); Lymphocytes # 1.2 10^3/uL (0.8-4.8); Lymphocytes % 6.8 %; Mean Corpuscular HGB Conc 33.4 g/dL (30.0-36.0); Mean Corpuscular Hemoglobin 30.3 pg (28.0-34.0); Mean Corpuscular Volume 90.6 fL (81-99); Mean Platelet Volume 10.5 fL (7.4-10.4); Monocytes # 0.8 10^3/uL (0.2-0.9); Monocytes % 4.7 %; Neutrophils # 14.75 10^3/uL (1.8-7.7); Neutrophils % 84.7 %; Nucleated Red Blood Cells % 0 %; Platelet Count 302 10^3/cmm (130-400); Red Blood Count 4.69 10^6/uL (4.1-5.3); Red Cell Distribution Width 13.9 % (12.1-15.1); White Blood Count 17.4 10^3/uL (4.0-10.0)
[2020-04-22] MEDS: dexamethasone 4 mg/mL INJ 6 MG IVP (06:33)
[2020-04-22 07:05] LABS: Alanine Aminotransferase 31 U/L (0-33); Albumin Level 2.7 g/dL (3.5-5.2); Alkaline Phosphatase 56 IU/L (35-105); Anion Gap 12.8 (5-19); Aspartate Amino Transferase 19 U/L (0-32); Blood Urea Nitrogen 22 mg/dL (8-23); C Reactive Protein 11.5 mg/L (0.0-4.9); Carbon Dioxide 26 mmol/L (22-29); Chloride 100 mmol/L (98-107); Globulin 3.5 g/dL (1.3-4.6); Glomerular Filtration Rate 160.7 mL/min (90-130); Glucose 128 mg/dL (65-115); Osmolality Calculated 285 mOsm/kg (285-295); Potassium 3.8 mmol/L (3.5-5.1); Sodium 135 mmol/L (136-145); Total Bilirubin 0.8 mg/dL (0.15-1.2); Total Protein 6.2 g/dL (6.6-8.7)
[2020-04-22] MEDS: midodrine 5 mg TABLET PO ×3 (08:57→21:03)
[2020-04-22] MEDS: enoxaparin 40 mg/0.4 mL Syringe SUBCUT ×2 (08:57→21:03)
[2020-04-22] MEDS: zinc gluconate 50 mg Tablet PO (08:57)
[2020-04-22] MEDS: atorvastatin 40 mg Tablet 20 MG PO (08:57)
[2020-04-22] MEDS: polyethylene glycol 3350 Pkt 17 gm PO (08:57)
[2020-04-22] MEDS: aspirin 81 mg EC Tablet PO (08:57)
[2020-04-22] MEDS: sertraline 50 mg Tablet PO (08:57)
[2020-04-22] MEDS: ascorbic acid 500 mg Tablet PO (08:57)
--- NOTE | 2020-04-22 16:08 | PM.PN ---
Subjective Subjective: Interval history: At rest patient is saturating 89 to 90% on liters per minute high flow nasal cannula, however with minimal exertion from bed to bedside commode she desaturated down to 75% even on 10 L/min high flow nasal cannula. Appears tachypneic, dyspneic, had noted pursed lip breathing. 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 doppler lower extremity b/l vein : No DVT chest x-ray. 3/6 : Emphysematous change, interstitial prominence, and worsening left-sided airspace disease. Blood Culture : No Growth Status: Acute (2) COVID-19: Completed Remdesivir 5/5 days course Decadron 6mg I.V daily vitamin C zinc procalcitonin level:nl Lovenox 40 mg every 12 for now because of high D-dimer Levofloxacin 750 MG I.V Q24 H DAILY clinically euvolemic Monitor Xray chest Status: Acute (3) Sepsis: Sepsis 2/2 PNA Meet sepsis criteria with leukocytosis and tachypnea, high lactic acid noted as well which seems secondary to hypoxia Leukocytosis likely 2/2 steroid use, no focal signs of untreated infection remove [place] Status: Acute (4) Hypothyroidism: Status: Acute (5) Hypertension: Currently episodic borderline orthostatic hypotension. Midodrine 5 mg po TID , currently improved Lisinopril Discontinued. Monitor Blood Pressure for now., Currently well controlled Status: Acute (6) Physical deconditioning: Likely as a result of hospitalization, acute viral illness, high-dose steroids. Appreciate with PT evaluation, recommended versus home health. Patient prefers to return home. 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
[2020-04-22] MEDS: pantoprazole DR 40 mg Tablet PO (17:19)
[2020-04-22] MEDS: levothyroxine 25 mcg Tablet PO (21:03)
[2020-04-22] MEDS: levofloxacin-dextrose 5 % 750 MG/150 ML PREMIX 150 MG IV (21:03)
--- NOTE | 2020-04-22 21:30 | PC.NURSE ---
Patient with the assistance of the aid, ambulated to the lavatory. Patient was then brought back to the bed where she had Shortness of breath, and was not able to control her breathing as stated by the aid and patient. This nurse was then notified when he came out of another patients room that the patient was in this condition. When this nurse arrived to the room, he and charge nurse was able to get the patient fully back into bed and through the use of breathing exercises, was able to bring the patient's SpO2 from the 70's to 87. RT then arrived at the room and assessed the patient and made no changes to patients O2 flow.
[2020-04-23] VITALS (9 sets, daily range): BP systolic 134–158; BP diastolic 74–89; PULSE 63–81; RESP 17–18; TEMP 36.5–36.7; O2SAT 89–96
[2020-04-23] MEDS: guaiFENesin-dextromethorphan UDC 10 mL PO ×6 (02:05→23:31)
[2020-04-23] MEDS: dexamethasone 4 mg/mL INJ 6 MG IVP (06:30)
[2020-04-23] MEDS: aspirin 81 mg EC Tablet PO (08:42)
[2020-04-23] MEDS: ascorbic acid 500 mg Tablet PO (08:43)
[2020-04-23] MEDS: midodrine 5 mg TABLET PO ×3 (08:43→17:46)
[2020-04-23] MEDS: pantoprazole DR 40 mg Tablet PO (08:44)
[2020-04-23] MEDS: sertraline 50 mg Tablet PO (08:44)
[2020-04-23] MEDS: atorvastatin 40 mg Tablet 20 MG PO (08:44)
[2020-04-23] MEDS: enoxaparin 40 mg/0.4 mL Syringe SUBCUT ×2 (08:44→21:03)
[2020-04-23] MEDS: zinc gluconate 50 mg Tablet PO (08:44)
--- NOTE | 2020-04-23 10:05 | PC.NURSE ---
pt off of droplet/ contact precautions per DR. Smith as pt is outside of window
--- NOTE | 2020-04-23 11:39 | PC.SOCIAL ---
IMM updated Updated patient on Pg 2 IMM. No questions voiced. Provided pt a copy. Initialed, dated, & timed copy in chart.
--- NOTE | 2020-04-23 16:10 | PM.PN ---
Subjective Subjective: Interval history: Continues to be on 8 L/min via high flow nasal cannula with desaturation with minimal movement. Denies any current chest pain or dyspnea. 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 Urinary Catheter Management^: [place]: Cath Placed During This Visit: yes, but has since been removed by the nurse Reason for Continuing Indwelling Catheter: Decision to DC Catheter Date Urinary Catheter Removed: 04/22/20 Time Urinary Catheter Discontinued: 17:29 Data : 04/22/20 05:50 04/22/20 05:50 A&P Assessment and plan (1) Acute respiratory failure with hypoxia: Status: Acute (2) COVID-19: Status: Acute (3) Sepsis: Status: Acute Qualifiers: Sepsis type: sepsis due to unspecified organism Sepsis acute organ dysfunction status: with acute organ dysfunction Severe sepsis acute organ dysfunction type: acute respiratory failure Acute respiratory failure type: with hypoxia Severe sepsis shock status: without septic shock Qualified Code(s): A41.9 - Sepsis, unspecified organism; R65.20 - Severe sepsis without septic shock; J96.01 - Acute respiratory failure with hypoxia (4) Hypothyroidism: Status: Acute Qualifiers: Hypothyroidism type: unspecified Qualified Code(s): E03.9 - Hypothyroidism, unspecified (5) Hypertension: Status: Acute Qualifiers: Hypertension type: essential hypertension Qualified Code(s): I10 - Essential (primary) hypertension (6) Physical deconditioning: Status: Acute Additional A&P Information 65-year-old lady admitted on April 13 with sepsis and acute hypoxic respiratory failure as a result of COVID-19 pneumonia after testing positive on April 07, 2020. #Sepsis, present on admission, now resolved #Acute hypoxic respiratory failure as a result of COVID-19 pneumonia, persisting, increasing oxygen requirement from from nasal cannula to heated high flow until April 19, 2020, now on high flow nasal cannula between 8 to 10 L/min, requirements persistent at this present time. With minimal exertion patient desaturates to 75% on 10 to 12 L/min on high flow nasal cannula. Remains hospitalized as would be unable to replicate these high oxygen requirements of at home, and risk of desaturation episodes at home. #COVID-19 pneumonia Received 5 days of remdesivir between April 13 to April 17. Currently on dexamethasone 6 mg p.o. daily since April 07, 2020, will start tapering down to prednisone 20 mg p.o. daily today. Underwent CTA of the chest, no PE noted, bilateral groundglass opacities were seen with graded on greatest on the left side. Has received empiric antibiotic course with levofloxacin for 10 days, discontinue treatment today. Was previously on doxycycline as outpatient. Procalcitonin is negative, patient remains afebrile, less suspicious for secondary bacterial infections at this time. Blood cultures negative. Continue incentive spirometry and Acapella, continue Robitussin. Chest x-ray with mild partial clearing of left pulmonary infiltrates on April 22. Inflammatory markers have trended down. #History of hypertension, however hypotensive earlier in the course of admission so much midodrine was started at 5 mg p.o. 3 times daily, SBP now ranging between 1 50-1 60 systolic, reduce midodrine to 5 mg p.o. twice daily. #Physical deconditioning, multifactorial, as a result of acute viral infection, hospital stay, high-dose steroids. Appreciate PT evaluation. Patient would benefit from continued skilled therapy to increase strength and independence to return to prior level of function. 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
[2020-04-23] MEDS: levothyroxine 25 mcg Tablet PO (21:04)
[2020-04-24] VITALS (13 sets, daily range): BP systolic 112–145; BP diastolic 68–88; PULSE 62–96; RESP 15–30; TEMP 36.4–36.7; O2SAT 88–95
[2020-04-24] MEDS: guaiFENesin-dextromethorphan UDC 10 mL PO ×5 (03:00→22:38)
[2020-04-24] MEDS: FUROsemide 10 mg/mL SDV 2mL 20 MG IVP (08:44)
--- NOTE | 2020-04-24 08:50 | PC.NURSE ---
AT APPROX 0825 PT WAS HELPED TO BEDSIDE COMMODE BY ENVIRONMENTAL LABORATORY TECHNICIAN, PTS O2 SAT DROPPED TO 73%, RT WAS CALLED TO ROOM AND PT WAS PUT ON 15L VIA NON-REBREATHER MASK. PT SAT ON BEDSIDE COMMODE FOR APPROX. 10 MIN, HER O2 SAT STARTED TO LEVEL OUT ON HER O2 SAT. THEN, SHE HER O2 SAT DROPPED TO 68% RT CALLED BACK INTO ROOM. NOTIFIED AND RECEIVED ORDERS TO PLACE PT ON BIPAP AND TO GIVE 125MG SOLU-MEDROL IVP AND LASIX 20MG IVP. PT IS CURRENT O2 SAT IS 89% ON BIPAP
[2020-04-24] MEDS: ipratropium-albuterol 3 mL Neb INHALATION (08:54)
[2020-04-24] MEDS: enoxaparin 40 mg/0.4 mL Syringe SUBCUT (08:59)
--- NOTE | 2020-04-24 09:56 | PC.OT ---
OT note: Pt on BiPAP and resting. Will attempt later as able.
--- NOTE | 2020-04-24 10:30 | PC.NURSE ---
MEDS HELD PER DR. GRIFFIN R/T PT NEEDING TO STAY ON BIPAP CONTINUOUSLY AT THIS TIME
--- NOTE | 2020-04-24 11:14 | PM.PN ---
Subjective Subjective: Interval history: This morning at around 9 AM patient had another desaturation episode while moving from bed to bedside commode. On high flow nasal cannula at 8 L/min she desaturated to 76%, was put on oxygen mask at 15 L/min but continued to drop oxygen saturation to 68%. Patient was mentating well during these events. Eventually placed on BiPAP, initially on 100% FiO2, then titrated down at 80% FiO2. Medications: Reviewed: Yes Vitals/I&O/Wt Last Vital Signs Temp 98.1 F 04/24/20 10:41 Pulse 84 04/24/20 10:41 Resp 19 H 04/24/20 10:41 BP 121/78 04/24/20 10:41 Pulse Ox 95 04/24/20 10:41 04/23/20 04/24/20 04/24/20 22:59 06:59 14:59 Intake Total 360 / 720 240 / 240 Balance 360 / 270 240 / 240 Weight last 48 hrs Weight 74.843 kg Weight 74.106 kg Physical Exam Narrative: EXAM NARRATIVE: GEN: Awake, alert and oriented, appears tired, slightly tachypneic CVS: S1S2 N RS: Fine scattered crackles left lung base Abd: Soft, nt/nd , bs+ SOCIAL SERVICES COUNSELOR: no focal neuro deficits Urinary Catheter Management^: Quezada: Cath Placed During This Visit: yes, but has since been removed by the nurse Reason for Continuing Indwelling Catheter: Decision to DC Catheter Date Urinary Catheter Removed: 04/22/20 Time Urinary Catheter Discontinued: 17:29 Data : 04/22/20 05:50 04/22/20 05:50 A&P Assessment and plan (1) Acute respiratory failure with hypoxia: Status: Acute (2) COVID-19: Status: Acute (3) Sepsis: Resolved Status: Acute Qualifiers: Sepsis type: sepsis due to unspecified organism Sepsis acute organ dysfunction status: with acute organ dysfunction Severe sepsis acute organ dysfunction type: acute respiratory failure Acute respiratory failure type: with hypoxia Severe sepsis shock status: without septic shock Qualified Code(s): A41.9 - Sepsis, unspecified organism; R65.20 - Severe sepsis without septic shock; J96.01 - Acute respiratory failure with hypoxia (4) Hypothyroidism: Status: Acute Qualifiers: Hypothyroidism type: unspecified Qualified Code(s): E03.9 - Hypothyroidism, unspecified (5) Hypertension: Status: Acute Qualifiers: Hypertension type: essential hypertension Qualified Code(s): I10 - Essential (primary) hypertension (6) Physical deconditioning: Status: Acute Additional A&P Information 65-year-old lady admitted on April 13 with sepsis and acute hypoxic respiratory failure as a result of COVID-19 pneumonia after testing positive on April 07, 2020. #Sepsis, present on admission, now resolved #Acute hypoxic respiratory failure as a result of COVID-19 pneumonia, persisting, increasing oxygen requirement from from nasal cannula to heated high flow until April 19, 2020, now on high flow nasal cannula between 8 to 10 L/min, requirements persistent at this present time. With minimal exertion patient desaturates to 75% on 10 to 12 L/min on high flow nasal cannula. Remains hospitalized as would be unable to replicate these high oxygen requirements of at home, and risk of desaturation episodes at home. This morning had another episode of desaturation with minimal exertion, which required her to be placed on BiPAP, will attempt to wean down to heated high flow during the course of the day. #COVID-19 pneumonia Received 5 days of remdesivir between April 13 to April 17. Currently on dexamethasone 6 mg p.o. daily since April 07, 2020, tapered to to prednisone 20 mg p.o. daily on April 23, 2020. Received Solu-Medrol 125 mg x 1 during course of acute events as described above. Underwent CTA of the chest on admission, no PE noted, bilateral groundglass opacities were seen with graded on greatest on the left side. Given acute events this morning, will repeat CTA of the chest. In the interim increase Lovenox to 1 mg/kg every 12 hours. Has received empiric antibiotic course with levofloxacin for 10 days. Was previously on doxycycline as outpatient. Procalcitonin is negative, patient remains afebrile, less suspicious for secondary bacterial infections at this time. Blood cultures negative. Leukocytosis likely as a result of margination from steroids Continue incentive spirometry and Acapella, continue Robitussin. Chest x-ray with mild partial clearing of left pulmonary infiltrates on April 22. Repeat stat chest x-ray Inflammatory markers have trended down. #History of hypertension, however hypotensive earlier in the course of admission so much midodrine was started at 5 mg p.o. 3 times daily, SBP now ranging between 1 50-1 60 systolic, reduced midodrine to 5 mg p.o. twice daily. #Physical deconditioning, multifactorial, as a result of acute viral infection, hospital stay, high-dose steroids. Appreciate PT evaluation. Patient would benefit from continued skilled therapy to increase strength and independence to return to prior level of function. DVT prophylaxis Lovenox GI prophylaxis Protonix Dispo: Unable to replicate high oxygen requirements at home, planning for LTAC Attestations Medical Necessity Statement*: Continues to have high oxygen requirements which will be unable to be replicated at home, plan transition to LTAC. Coding Level of Care Code Acute Counter Intelligence Technician for [facility] Fwd Diagnoses Acute respiratory failure with hypoxia J96.01 COVID-19 U07.1 Sepsis A41.9; R65.20; J96.01 Sepsis type: sepsis due to unspecified organism Sepsis acute organ dysfunction status: with acute organ dysfunction Severe sepsis acute organ dysfunction type: acute respiratory failure Acute respiratory failure type: with hypoxia Severe sepsis shock status: without septic shock Hypothyroidism E03.9 Hypothyroidism type: unspecified Hypertension I10 Hypertension type: essential hypertension Physical deconditioning R53.81
--- NOTE | 2020-04-24 12:32 | XR_ITS ---
WS: [id number] Portable AP upright chest, 04/24/2020 Clinical Data: INCREASED O2 NEED Comparison: Portable chest, 11/03/2020. Findings: The left lung opacity remains the same. There is minimal opacity over the surface of the ri ght diaphragm also unchanged. The heart size remains the same. No pneumothorax is present. XR/XR chest 1V portable [id number] Impression: No change in bilateral pulmonary opacities.
--- NOTE | 2020-04-24 13:05 | PC.NURSE ---
Nurse stated pt could not be off of bipap at the time of lunch.
[2020-04-24] MEDS: enoxaparin 30 mg/0.3 mL Syringe SUBCUT (13:59)
[2020-04-24] MEDS: sertraline 50 mg Tablet PO (14:00)
[2020-04-24] MEDS: predniSONE 20 mg Tablet PO (14:01)
[2020-04-24] MEDS: aspirin 81 mg EC Tablet PO (14:01)
[2020-04-24] MEDS: ascorbic acid 500 mg Tablet PO (14:02)
[2020-04-24] MEDS: zinc gluconate 50 mg Tablet PO (14:02)
[2020-04-24] MEDS: pantoprazole DR 40 mg Tablet PO (14:02)
[2020-04-24] MEDS: atorvastatin 40 mg Tablet 20 MG PO (14:03)
[2020-04-24] MEDS: midodrine 5 mg TABLET PO (17:33)
[2020-04-24] MEDS: enoxaparin 80 mg/0.8 mL Syringe 75 MG SUBCUT (20:54)
[2020-04-24] MEDS: levothyroxine 25 mcg Tablet PO (20:59)
[2020-04-25] VITALS (14 sets, daily range): BP systolic 114–149; BP diastolic 70–81; PULSE 61–84; RESP 14–22; TEMP 36.5–37.2; O2SAT 89–100
[2020-04-25] MEDS: guaiFENesin-dextromethorphan UDC 10 mL PO ×3 (05:36→18:25)
[2020-04-25] MEDS: ipratropium-albuterol 3 mL Neb INHALATION ×2 (08:19→20:09)
[2020-04-25] MEDS: aspirin 81 mg EC Tablet PO (10:54)
[2020-04-25] MEDS: midodrine 5 mg TABLET PO ×2 (10:55→18:25)
[2020-04-25] MEDS: ascorbic acid 500 mg Tablet PO (10:55)
[2020-04-25] MEDS: sertraline 50 mg Tablet PO (10:55)
[2020-04-25] MEDS: zinc gluconate 50 mg Tablet PO (10:55)
[2020-04-25] MEDS: pantoprazole DR 40 mg Tablet PO (10:55)
[2020-04-25] MEDS: predniSONE 20 mg Tablet PO (10:55)
[2020-04-25] MEDS: atorvastatin 40 mg Tablet 20 MG PO (10:56)
--- NOTE | 2020-04-25 15:02 | PM.DCS ---
Discharge Providers Date of Admission: 04/14/20 03:18 Date of Discharge: April 25, 2020 Attending Provider at Admission: Sanaz Heaton MD Attending Provider at Discharge: Jazmine Smith MD Primary Care Provider: ADAM London Diagnoses at Discharge Discharge Diagnosis (1) Acute respiratory failure with hypoxia: Status: Acute (2) COVID-19: Status: Acute (3) Sepsis: Status: Acute Qualifiers: Sepsis type: sepsis due to unspecified organism Sepsis acute organ dysfunction status: with acute organ dysfunction Severe sepsis acute organ dysfunction type: acute respiratory failure Acute respiratory failure type: with hypoxia Severe sepsis shock status: without septic shock Qualified Code(s): A41.9 - Sepsis, unspecified organism; R65.20 - Severe sepsis without septic shock; J96.01 - Acute respiratory failure with hypoxia (4) Hypothyroidism: Status: Acute Qualifiers: Hypothyroidism type: unspecified Qualified Code(s): E03.9 - Hypothyroidism, unspecified (5) Hypertension: Status: Acute Qualifiers: Hypertension type: essential hypertension Qualified Code(s): I10 - Essential (primary) hypertension (6) Physical deconditioning: Status: Acute Reason for Visit Reason for Visit: shortness of breath Hospital Course Hospital Course 65-year-old lady admitted on April 13 with sepsis and acute hypoxic respiratory failure as a result of COVID-19 pneumonia after testing positive on April 07, 2020. Hospital course notable as below #Sepsis, present on admission, now resolved #Acute hypoxic respiratory failure as a result of COVID-19 pneumonia, persisting, increasing oxygen requirement from from nasal cannula to heated high flow until April 19, 2020, then on high flow nasal cannula between 8 to 10 L/min, requirements now at heated high flow at 30lpm at 35% fi02 since 04/24. With minimal exertion patient desaturates to 75% on 10 to 12 L/min on high flow nasal cannula. Remains hospitalized as would be unable to replicate these high oxygen requirements at home, and risk of desaturation episodes at home. #COVID-19 pneumonia Received 5 days of remdesivir between April 13 to April 17. Currently on dexamethasone 6 mg p.o. daily since April 07, 2020, tapered to to prednisone 20 mg p.o. daily on April 23, 2020. Underwent CTA of the chest on admission, no PE noted, bilateral groundglass opacities were seen with graded on greatest on the left side. Given acute events on 04/24, will repeat CTA planned, however unable to be perfromed while patient on heated hi flow. presumptively Lovenox increased to 1 mg/kg every 12 hours on 04/24 until PE can be excluded. Has received empiric antibiotic course with levofloxacin for 10 days. Was previously on doxycycline as outpatient. Procalcitonin is negative, patient remains afebrile, less suspicious for secondary bacterial infections at this time. Blood cultures negative. Leukocytosis likely as a result of margination from steroids. Continue incentive spirometry and Acapella, continue Robitussin. Chest x-ray with mild partial clearing of left pulmonary infiltrates on April 22 and April 24, no gross consolidation. Inflammatory markers have trended down. #History of hypertension, however hypotensive earlier in the course of admission so much midodrine was started at 5 mg p.o. 3 times daily, SBP now ranging between 1 50-1 60 systolic, reduced midodrine to 5 mg p.o. twice daily. #Physical deconditioning, multifactorial, as a result of acute viral infection, hospital stay, high-dose steroids. Appreciate PT evaluation. Patient would benefit from continued skilled therapy to increase strength and independence to return to prior level of function. DVT prophylaxis Lovenox GI prophylaxis Protonix Dispo: Unable to replicate high oxygen requirements at home, discharge to LTAC for continued weaning Physical Exam Narrative: EXAM NARRATIVE: GEN: Awake, alert and oriented, no acute distress CVS: S1S2 N RS: b/L scattered crcakles L>R Abd: Soft, nt/nd , bs+ BILLIARD PLAYER: no focal neuro deficits Urinary Catheter Management^: [place]: Cath Placed During This Visit: yes, but has since been removed by the nurse Reason for Continuing Indwelling Catheter: Decision to DC Catheter Date Urinary Catheter Removed: 04/22/20 Time Urinary Catheter Discontinued: 17:29 Discharge Data Data Completed and Pending: Completed Studies During Hospitalization Category Date Time Status CT angio chest PE protcl [id number] Stat Cat Scan 04/14/20 01:06 Completed XR chest 1V lisa ble [id number] AM LABS Exams 04/22/20 06:00 Completed XR chest 1V lisa ble [id number] Routine Exams 04/16/20 13:56 Completed XR chest 1V lisa ble [id number] Routine Exams 04/19/20 06:00 Completed XR chest 1V lisa ble [id number] Routine Exams 04/24/20 12:32 Completed XR chest 1V lisa ble [id number] Stat Exams 04/13/20 21:58 [place] [id number] Routin e Ultrasound 04/18/20 06:00 Completed Pending at discharge Category Date Time Status CT angio chest PE protcl [id number] Rout ine Cat Scan 04/25/20 14:26 Ordered Vitals: Last Vital Signs Temp 97.7 F 04/25/20 11:50 Pulse 77 04/25/20 13:08 Resp 14 04/25/20 13:08 BP 114/71 04/25/20 11:50 Pulse Ox 91 04/25/20 13:08 Discharge Plan Discharge Patient Disposition: Xfer [facility] Condition: Stable Prescriptions: New Solifenacin [Vesicare] 10 mg PO DAILY Qty: 0 RF: 0 ipratropium-albuterol 0.5 mg-3 mg(2.5 mg base)/3 mL Solution For Nebulization 3 ml inhalation Q6H PRN (Reason: Shortness Of Breath) Qty: 0 RF: 0 dextromethorphan-guaifenesin 10-100 mg/5 mL Syrup 10 ml PO Q4H Qty: 0 RF: 0 fluticasone propion-salmeterol [Advair Diskus] 250-50 mcg/dose Blister With Device 1 puff inhalation BID.RESPIRATORY Qty: 0 RF: 0 prednisone 20 mg Tablet 20 mg PO DAILY Qty: 0 RF: 0 enoxaparin 80 mg/0.8 mL Syringe 75 mg SUBCUT Q12H Qty: 0 RF: 0 aspirin 81 mg Tablet,Delayed Release (Dr/Ec) 81 mg PO DAILY@09 Qty: 0 RF: 0 atorvastatin 40 mg Tablet 20 mg PO DAILY Qty: 0 RF: 0 levothyroxine 25 mcg Tablet 25 mcg PO DAILY@1999 Qty: 0 RF: 0 sertraline 50 mg Tablet 50 mg PO DAILY Qty: 0 RF: 0 ascorbic acid (vitamin C) [Vitamin C] 500 mg Tablet 500 mg PO DAILY Qty: 0 RF: 0 zinc gluconate 50 mg Tablet 50 mg PO DAILY Qty: 0 RF: 0 polyethylene glycol 3350 17 gram Powder In Packet 17 g PO DAILY Qty: 0 RF: 0 pantoprazole 40 mg Tablet,Delayed Release (Dr/Ec) 40 mg PO DAILY Qty: 0 RF: 0 midodrine 5 mg Tablet 5 mg PO BID Qty: 0 RF: 0 Discontinued aspirin [Enteric Coated Aspirin] 81 mg tablet,delayed release (DR/EC) 81 mg PO DAILY@09 RF: 0 Complete Multivitamin Tablet 1 tab PO DAILY@09 RF: 0 calcium carbonate 600 mg calcium (1,500 mg) tablet 600 mg PO BID@,17 RF: 0 dexamethasone 6 mg tablet 6 mg PO DAILY 7 Days Qty: 7 RF: 0 albuterol sulfate [ProAir HFA] 90 mcg/actuation HFA aerosol inhaler 2 puff inhalation QID PRN (Reason: shortness of breath or wheezing) 30 Days Qty: 6.7 RF: 0 doxycycline hyclate 100 mg capsule 100 mg PO BID 7 Days Qty: 14 RF: 0 sucralfate [Carafate] 1 gram tablet 1 g PO BID PRN (Reason: acid reflux) Qty: 60 RF: 2 atorvastatin 20 mg tablet 20 mg PO DAILY@22 RF: 0 levothyroxine 25 mcg tablet 25 mcg PO DAILY@20 RF: 0 lisinopril 40 mg tablet 40 mg PO DAILY@17 RF: 0 sertraline 50 mg tablet 50 mg PO DAILY@09 RF: 0 solifenacin 10 mg tablet 10 mg PO DAILY@22 RF: 0 Discharge Orders: Discharge Order (Routine); Ordered 04/25/20 Ordered By: Jazmine Smith Discharge Diet: Usual diet Discharge Activity: Resume usual activity Discharge Attestations Time Spent in Discharge Care*: greater than 30 min Status at Discharge: Cognitive status at discharge: cognitively intact, Behavioral status at discharge: cooperative, Quality Metrics Clinical Quality Measures During this hospital stay, did patient experience: None Coding Level of Care Code Acute g FW DC note Diagnoses Acute respiratory failure with hypoxia J96.01 COVID-19 U07.1 Sepsis A41.9; R65.20; J96.01 Sepsis type: sepsis due to unspecified organism Sepsis acute organ dysfunction status: with acute organ dysfunction Severe sepsis acute organ dysfunction type: acute respiratory failure Acute respiratory failure type: with hypoxia Severe sepsis shock status: without septic shock Hypothyroidism E03.9 Hypothyroidism type: unspecified Hypertension I10 Hypertension type: essential hypertension Physical deconditioning R53.81
[2020-04-25] MEDS: enoxaparin 80 mg/0.8 mL Syringe 75 MG SUBCUT (15:13)
== END 2020-04-25 21:16 | DRG 871 ==
LOC: ER 22:06 → CSU 04-14 01:48 → MEDSURG 04-14 11:51
PROVIDERS: Internal Medicine; Admitting Provider Internal Medicine; Emergency Provider Student in an Organized Health Care Education/Training Program; PCP Nurse Practitioner; Visit Provider Student in an Organized Health Care Education/Training Program
DX: A41.9 Sepsis, unspecified organism (principal); U07.1 COVID-19; J12.82 Pneumonia due to coronavirus disease 2019; J96.01 Acute respiratory failure with hypoxia; E87.2 Acidosis; R65.20 Severe sepsis without septic shock; E03.9 Hypothyroidism, unspecified; F41.1 Generalized anxiety disorder; F43.0 Acute stress reaction; Z85.3 Personal history of malignant neoplasm of breast; Z92.21 Personal history of antineoplastic chemotherapy; E11.9 Type 2 diabetes mellitus without complications; E78.5 Hyperlipidemia, unspecified; I10 Essential (primary) hypertension; K21.9 Gastro-esophageal reflux disease without esophagitis; Z86.73 Personal history of transient ischemic attack (TIA), and cerebral infarction without residual deficits; E66.9 Obesity, unspecified; Z68.30 Body mass index [BMI] 30.0-30.9, adult; N39.46 Mixed incontinence; Z87.891 Personal history of nicotine dependence; I95.9 Hypotension, unspecified; Z79.82 Long term (current) use of aspirin
CPT/HCPCS: 12345; 36415; 36416; 36600; 71045; 71275; 80048; 80051; 80053; 82330; 82728; 82805; 82962; 83605; 84145; 84484; 85025; 85378; 86140; 87040; 93970; 94640; 94660; 94762; 96365; 96372; 96375; 97110; 97162; 97166; 97530; 97535; 99285; J1100; J1650; J1940; J1956; J2930; J7030; J7512; J8540; Q9967

== ENCOUNTER → 2020-05-09 14:21 | Outpatient (BNVA) | payer MEDICAID, SELFPAY | PROVIDERS: PCP Nurse Practitioner; Visit Provider Nurse Practitioner | DX: E11.9 Type 2 diabetes mellitus without complications (principal); K21.9 Gastro-esophageal reflux disease without esophagitis | CPT/HCPCS: 80053; 85025 ==

== ENCOUNTER → 2020-06-23 08:27 | Outpatient (BNVA) | payer MEDICAID, SELFPAY | PROVIDERS: PCP Nurse Practitioner; Visit Provider Nurse Practitioner | DX: E11.9 Type 2 diabetes mellitus without complications (principal); I10 Essential (primary) hypertension; E78.5 Hyperlipidemia, unspecified; E03.9 Hypothyroidism, unspecified; F41.1 Generalized anxiety disorder; F43.0 Acute stress reaction; K21.9 Gastro-esophageal reflux disease without esophagitis; E03.8 Other specified hypothyroidism; J30.9 Allergic rhinitis, unspecified | CPT/HCPCS: 80053; 80061; 81000; 84443; 85025 ==

== ENCOUNTER → 2020-09-16 09:01 | Outpatient (BNVA) | payer MEDICAID, SELFPAY | PROVIDERS: PCP Nurse Practitioner; Visit Provider Nurse Practitioner | DX: E78.5 Hyperlipidemia, unspecified (principal); J30.9 Allergic rhinitis, unspecified; I10 Essential (primary) hypertension; R32 Unspecified urinary incontinence; K21.9 Gastro-esophageal reflux disease without esophagitis; E03.8 Other specified hypothyroidism | CPT/HCPCS: 80053; 84443; 85025 ==

== ENCOUNTER 2020-11-17 09:12 | Outpatient (CLI) | payer MEDICAID, SELFPAY ==
--- NOTE | 2020-11-17 09:19 | MM_ITS ---
WS: [id number] Bilateral diagnostic digital mammogram, 11/17/2020 Clinical Data: HX OF BREAST CA Comparison: 09/07/2019, 09/04/2018, 09/02/2017, 08/30/2016, 03/01/2016, 09/09/2015, 08/07/2014, 08/06/2013, , 07/19/2012, 05/26/2011, 05/25/2010, 05/23/2009, 04/09/2008, 03/21/2007, 09/22/2006, 03/21/2006. Findings: The right breast shows heterogeneous density. No spiculated masses nor clustered calcifications are s een. There are no secondary signs of carcinoma. The left breast shows a reduction in size from treatment for breast cancer. There are multiple clips in the central portion of the left breast marking the treatment area. The skin of the left breast is thickened. The left breast shows heterogeneous density unchanged. MM/[place] [id number] Impression: 1. Negative right breast unchanged. 2. Post therapy treatments of the left breast unchanged. BIRADS: 2-Benign FOLLOW UP: 1 Year Follow-up The CAD abstract checker was used.
== END 2020-11-17 09:13 | disposition home or self-care (01) ==
LOC: RADSHAW 09:16
PROVIDERS: PCP Nurse Practitioner; Visit Provider Internal Medicine Hematology & Oncology
DX: Z85.3 Personal history of malignant neoplasm of breast (principal)
CPT/HCPCS: 77066

== ENCOUNTER → 2020-12-15 09:38 | Outpatient (BNVA) | payer MEDICAID, SELFPAY | PROVIDERS: PCP Nurse Practitioner; Visit Provider Nurse Practitioner | DX: E11.9 Type 2 diabetes mellitus without complications (principal); E78.5 Hyperlipidemia, unspecified; J30.9 Allergic rhinitis, unspecified; E03.8 Other specified hypothyroidism; I10 Essential (primary) hypertension; R32 Unspecified urinary incontinence; K21.9 Gastro-esophageal reflux disease without esophagitis | CPT/HCPCS: 80053; 80061; 83036 ==

== ENCOUNTER 2021-01-19 09:00 | Outpatient (CLI) | payer MEDICARE, MEDICAID, SELFPAY ==
[2021-01-19 09:52] LABS: Basophils # 0.1 10^3/uL (0.0-0.1); Eosinophils # 0.1 10^3/uL (0.0-0.8); Hematocrit 44.7 % (37.0-47.0); Lymphocytes # 1.8 10^3/uL (0.8-4.8); Lymphocytes % 19.3 %; Mean Corpuscular HGB Conc 33.6 g/dL (30.0-36.0); Mean Corpuscular Hemoglobin 30.8 pg (28.0-34.0); Mean Corpuscular Volume 91.8 fl (81-99); Mean Platelet Volume 11.2 fL (7.4-10.4); Monocytes # 0.6 10^3/uL (0.2-0.9); Monocytes % 6.4 %; Neutrophils # 6.63 10^3/uL (1.8-7.7); Neutrophils % 71.8 %; Nucleated Red Blood Cells % 0 %; Platelet Count 295 10^3/cmm (130-400); Red Blood Count 4.87 10^6/uL (4.1-5.3); Red Cell Distribution Width 14.2 % (12.1-15.1); White Blood Count 9.2 10^3/uL (4.0-10.0)
--- NOTE | 2021-01-20 17:17 | ONC FU_ITS ---
Dr. Briggs follow up note Patient: Tianna Mckeon Unit #: [id number]: [id number] Dicatated By: Sindy Briggs M.D.Date of Visit:Jan 19, 2021 Onc Med Follow-up/Prog Note History of Present Illness: This is a 65 year-old woman with grade 2 invasive ductal carcinoma of the left breast, pathologic stage IIA (T1c, N1, M0), ER/[place] positive, HER-2/[place] negative. She had presented with an abnormal mammogram of the left breast on 07/24/2013. Additional views showed suspicious findings at 6:00 position corresponding to a regular mass on ultrasound. On 08/23/13 ultrasound-guided biopsy revealed grade 1/3 infiltrating ductal carcinoma. She was taken to OR by Dr. Angelo on 09/12/2013 for left breast lumpectomy and sentinel lymph node biopsy. The surgical pathology showed a 1.9 cm invasive ductal carcinoma, grade 2/3, margins negative. One out of 2 sentinel lymph nodes were involved with metastatic disease. Prognostic markers were ER positive at 95%, [place] positive at 75%, Ki-67 index 7%, HER-2/[place] negative by IHC 0+, FISH was not done. On 09/21/2013 she underwent a left axillary lymph node dissection. An additional 11 axillary lymph nodes were negative for metastatic disease. She was first seen here on 10/12/13. Staging chest x-ray was negative. Drain associated Pseudomonas wound infection was treated. Echocardiogram showed EF of 55%. Adjuvant chemotherapy with Adriamycin/cyclophosphamide followed by paclitaxel was initiated on 11/08/2013. She completed 4 cycles of Adriamycin/cyclophosphamide on 12/20/2013. She began paclitaxel 01/03/2014. The first cycle was complicated by severe myalgias and neuropathy. She declined any further chemotherapy. She was then given radiation to the left breast and supraclavicular region, completed on 05/08/2014. She began adjuvant hormonal therapy with anastrozole in February 2014. It was switched to letrozole in April [address] due to [address] effects[address] of the chest on 07/25/2014 showed no lymphadenopathy, but there was mild cardiomegaly and there was left upper lobe and lingular pneumonitis. Ultrasound of the liver showed hepatomegaly and hepatic steatosis. DEXA scan showed osteopenia in the L-spine T score -1.1. Follow-up CT of the chest on 01/22/2015 showed resolved left lung pneumonitis. She continued on letrozole therapy. Her other medical illnesses have been limited to hypertension and hyperlipidemia. She smoked in the past, but only for a few years. She quit more than 40 years ago. A repeat DEXA scan on 12/04/2015 showed increased osteopenia with T score -1.6 in the lumbar spine. Completed 5-years of hormone therapy, discontinued Femara on 03/03/2018 Left ovarian cyst, stable now being followed by Dr. Han Status post bilateral oophorectomy done on 02/27/2019 Came for follow-up, denies any specific complaints, no fever chills, no nausea or vomiting, no diarrhea or constipation, no new bony pains, patient has left arm lymphedema which is chronic and under control. She had follow-up diagnostic digital mammogram done on November 17, 2020 which showed post therapy treatment changes in left breast, negative right breast Medications: Acidophilus 1 Tablet Tablet, chewable Oral daily, Aspirin EC 1 Tablet (of 81 mg) Tablet, enteric coated Oral, Atorvastatin Calcium 1 Tablet (of 10 mg) Oral daily, Calcium 600+D 1 Tablet (of 600-400 mg - Units) Oral b.i.d., Euthyrox 1 Tablet (of 50 mcg) Oral daily, Lisinopril 1 Tablet (of 30 mg) Oral at bedtime, Multi Vitamin Daily Tablet Oral, VESIcare 1 Tablet (of 10 mg) Tablet Oral at bedtime, Vitamin D 1 Tablet Oral daily Allergies: Codeine, Lactose Intolerance, Morphine Sulfate, and Penicillin. Review of Systems: Review of Systems is not available for this patient. Vital Signs: Performed on Jan 19, 2021 16:14 Height - 62.00 in Weight - 176.4 lbs (HIGH) BSA - 1.81 sq.m BMI - 32.26 (HIGH) Temperature - 96.7 F (LOW) Pulse - 94 /min Respiration - 18 /min BP - 151/85 mm(hg) (HIGH) O2 Sat - 99 % Pain - 0 Fatigue - 3 Performance Status: 0 - Fully active, able to carry on all predisease activities without restrictions. (ECOG) Physical Examination: Respiratory - Lungs are clear to auscultation, Cardiovascular - Regular rate and rhythm of heart, Gastrointestinal - Soft, bowel sounds present, Extremities - No visible edema except left upper arm which showed chronic lymphedema. Lab/Imaging: Most recent lab results are not available for this patient. Impression: 1. Patient with grade 2 infiltrating ductal carcinoma of the left breast, stage IIA (T1c, pN1a, M0), ER/[place] positive and HER-2/[place] negative. 2. She underwent left breast lumpectomy and axillary sentinel lymph node biopsy on 09/12/2013 followed by left axillary lymph node sampling on 09/21/2013. 3. She was given abbreviated adjuvant chemotherapy which included 4 cycles of Adriamycin/cyclophosphamide followed by 1 cycle of paclitaxel, completed 01/03/2014. 4. She completed radiation to the left breast on 05/08/2014 to a total dose 6080 cGy. 5. She began adjuvant hormonal therapy with anastrozole in February 2014, switched to letrozole in April 2014. Completed 5 years of hormonal therapy on 03/03/2018, so Femara discontinued 6. She has evidence of osteopenia of the lumbar spine by Dexa scan. 7. lymphedema left arm better with sleeve on and physical therapy 8. Episode of CVA in October 2016 status post TPA with full recovery Her other medical illnesses include: 8. Hypertension. 9. Hyperlipidemia. 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 <<Signature on File>>
== END 2021-01-19 09:01 | disposition home or self-care (01) ==
LOC: ONCMED 09:05
PROVIDERS: PCP Nurse Practitioner; Visit Provider Internal Medicine Hematology & Oncology
DX: Z08 Encounter for follow-up examination after completed treatment for malignant neoplasm (principal); Z85.3 Personal history of malignant neoplasm of breast; Z90.12 Acquired absence of left breast and nipple; M85.80 Other specified disorders of bone density and structure, unspecified site; I89.0 Lymphedema, not elsewhere classified; I10 Essential (primary) hypertension; E78.5 Hyperlipidemia, unspecified; Z86.73 Personal history of transient ischemic attack (TIA), and cerebral infarction without residual deficits; Z79.899 Other long term (current) drug therapy; Z92.21 Personal history of antineoplastic chemotherapy; Z92.3 Personal history of irradiation
CPT/HCPCS: 36415; 85025; 99214

== ENCOUNTER 2021-05-20 06:53 | Day surgery (SDC) | payer MEDICARE, MEDICAID, SELFPAY ==
[2021-05-18 10:20] VITALS: BMI 32.0
[2021-05-20 07:20] VITALS: BP 137/81; PULSE 110; RESP 16; TEMP 36.2; O2SAT 98
[2021-05-20] MEDS: sodium chloride 0.9% 1,000 ML 30 ML IV (07:30)
--- NOTE | 2021-05-20 08:04 | W.PM.OPSFHP ---
Same Day Surgery H&P Indication for Procedure/HPI DATE OF PROCEDURE: May 20, 2021 CHIEF COMPLAINT/INDICATIONFOR SURGICAL PROCEDURE: colonoscopy PREOP DIAGNOSIS: diagnostic PLANNED PROCEDURE: Operation Date: 05/20/21 08:15 Proposed Procedures p Colonoscopy [id number](Not Applicable) - Aj Wallace MD Medications/Allergies* Allergies/Adverse Reactions Allergy/AdvReac Type Severity Reaction Status Date / Time codeine Allergy Confusion Verified 05/18/21 10:23 haloperidol Allergy Weird Verified 05/18/21 10:23 feeling morphine Allergy Weird Verified 05/18/21 10:23 feeling /confusion Penicillins Allergy Hives/Itchi Verified 05/18/21 10:23 ng Current Medications: Generic Name Dose Route Start Last Admin Trade Name Freq PRN Reason Stop Dose Admin Sodium Chloride 1,000 mls @ 30 mls/hr 05/20/21 07:00 05/20/21 07:30 Sodium Chloride 0.9% IV 05/21/21 06:59 30 mls/hr .Q24H CADEN Administration Pertinent History/Comorbid Conditions* Medical History (Updated 04/01/21 @ 09:03 by Hermann Villarreal, ELECTRONIC DEVICE MONITOR-C) Adult onset hypothyroidism Allergic rhinitis Anxiety as acute reaction to exceptional stress Breast cancer Diagnosed 2013. Treated with lumpectomy and lymph node excision. Received chemotherapy. COVID-19 Diabetes mellitus Dyslipidemia Essential hypertension Gastroesophageal reflux disease without esophagitis History of cerebrovascular accident Serous cystadenoma of left ovary Bilateral salpingo-oophorectomy performed on 02/27/2019. Final path showed serous cystadenoma. Urinary incontinence 01/10/2019: Reports stress and urgency incontinence with urgency Surgical History (Updated 03/14/19 @ 20:27 by Michael Han MD) History of removal of Port-a-Cath (02/26/14) Inserted on 10/17/2013 and removed on 02/26/2014. Both performed by Dr. Suarez at [facility] and [place], [place] S/P bilateral salpingo-oophorectomy (02/27/19) Laparoscopic. Diag: Left ovarian cyst. Performed by Dr. Han at [facility] in [place], [place]. Final path showed: Left serous cystadenoma. S/P lumpectomy of breast (09/12/13) Diagnosed with breast cancer. S/P lymph node biopsy (09/21/13) Axillary, as part of the evaluation for breast cancer. Family History (Updated 02/19/19 @ 15:48 by Alexia Rincon RN) Heart disease Father Hypertension Sister Stroke Father Social History Smoking and tobacco status: former smoker Quit status (tobacco): has quit using tobacco Year quit tobacco: 1974 Second hand smoke exposure: No Smoking risk assessment/counseling performed?: No Alcohol intake: never Desire information about alcohol rehabilitation?: No Counseling given: No Desire information about substance/drug rehabilitation?: No Counseling given: No Caregiver/support person: No Lives independently: Yes Household members: family Marital status: Single Current occupational status: disabled History of recent travel: No Current gender identity: Female Additional social history: Well balanced diet Pertinent Exam Findings alert, oriented x 3 and regular rate & rhythm Recommendations Surgery/Procedure today Coding Level of Care Code Acute Issue Clerk for Chandler Francis
--- NOTE | 2021-05-20 08:06 | P.ANESASSM_ITS ---
Pre-Anesthetic Assessment Height/Weight: Height 1.57 m Weight 79.379 kg Temp Pulse Resp BP Pulse Ox 97.2 F L 110 H 16 137/81 98 05/20/21 07:20 05/20/21 07:20 05/20/21 07:20 05/20/21 07:20 05/20/21 07:20 Preop Diagnosis: diagnostic Operation Date: 05/20/21 08:15 Proposed Procedures p Colonoscopy [id number](Not Applicable) - Aj Wallace MD Familial anesthetic complications: none Was Beta Steve taken within 24 hours: N/A Was Clonidine taken within 24 hours: N/A Last intake: Intake Last Liquid Date 05/19/21 Last Liquid Time 23:00 Last Solid Date 05/18/21 Last Solid Time 16:30 Exam alert, oriented x 3, clear to auscultation bilaterally and regular rate & rhythm Airway Submandibular: within normal limits Cervical ROM: within normal limits Mallampati: Class I Dentition: full History/ROS No significant history except as noted Pulmonary None reported CV/HEM Hypertension None reported Hepatic None reported GI Gastroesophageal Reflux Disease Metabolic Morbid Obesity [facility] [place] [place] None reported Neuropsych Cerebrovascular Accident (2018, no residual effects) Anesthetic Plan ASA status: 2 Anesthesia: Anesthesia Evaluation and MAC Risk of > 500 ml blood loss (7ml/kg in children): No Medications/Allergies Home Medications Medication Instructions Recorded Confirmed Last Taken Type aspirin 81 mg tablet,delayed 81 mg PO DAILY@09 #0 tab 04/25/20 05/18/21 05/18/21 Rx release zinc gluconate 50 mg tablet 50 mg PO DAILY #0 tab 04/25/20 05/18/21 05/19/21 Rx atorvastatin 20 mg tablet 20 mg PO DAILY #30 tab 04/01/21 05/18/21 05/19/21 Rx levothyroxine 50 mcg tablet 50 mcg PO DAILY@1999 #30 tab 04/01/21 05/18/21 05/18/21 Rx lisinopril 30 mg tablet 30 mg PO DAILY #30 tab 04/01/21 05/18/21 05/19/21 Rx Allergies Allergy/AdvReac Type Severity Reaction Status Date / Time codeine Allergy Confusion Verified 05/18/21 10:23 haloperidol Allergy Weird Verified 05/18/21 10:23 feeling morphine Allergy Weird Verified 05/18/21 10:23 feeling /confusion Penicillins Allergy Hives/Itchi Verified 05/18/21 10:23 ng Current Medications Generic Name Dose Route Start Last Admin Trade Name Freq PRN Reason Stop Dose Admin Sodium Chloride 1,000 mls @ 30 mls/hr 05/20/21 07:00 05/20/21 07:30 Sodium Chloride 0.9% IV 05/21/21 06:59 30 mls/hr .Q24H CADEN Administration PFSH Anesthesia Medical History (Updated 04/01/21 @ 09:03 by ADAM London) Adult onset hypothyroidism Allergic rhinitis Anxiety as acute reaction to exceptional stress Breast cancer Diagnosed 2013. Treated with lumpectomy and lymph node excision. Received chemotherapy. COVID-19 Diabetes mellitus Dyslipidemia Essential hypertension Gastroesophageal reflux disease without esophagitis History of cerebrovascular accident Serous cystadenoma of left ovary Bilateral salpingo-oophorectomy performed on 02/27/2019. Final path showed serous cystadenoma. Urinary incontinence 01/10/2019: Reports stress and urgency incontinence with urgency Surgical History History of removal of Port-a-Cath (02/26/14) Inserted on 10/17/2013 and removed on 02/26/2014. Both performed by Dr. Suarez at [facility] and [place], [place] S/P bilateral salpingo-oophorectomy (02/27/19) Laparoscopic. Diag: Left ovarian cyst. Performed by Dr. Han at [facility] in [place], [place]. Final path showed: Left serous cystadenoma. S/P lumpectomy of breast (09/12/13) Diagnosed with breast cancer. S/P lymph node biopsy (09/21/13) Axillary, as part of the evaluation for breast cancer. Family History Father Stroke Heart disease Sister Hypertension Social History Smoking and tobacco status: former smoker Quit status (tobacco): has quit using tobacco Year quit tobacco: 1975 Second hand smoke exposure: No Smoking risk assessment/counseling performed?: No Alcohol intake: never Desire information about alcohol rehabilitation?: No Counseling given: No Desire information about substance/drug rehabilitation?: No Counseling given: No Caregiver/support person: No Lives independently: Yes Household members: family Marital status: Single Current occupational status: disabled History of recent travel: No Current gender identity: Female Additional social history: Well balanced diet Data Anesthesia Cardiac Studies: Echocardiogram Ultrasound 01/24/20
[2021-05-20 08:35] VITALS: BP 95/49; PULSE 71; RESP 16; TEMP 36.1; O2SAT 92
[2021-05-20 08:55] VITALS: BP 101/56; PULSE 82; RESP 16; O2SAT 96
--- NOTE | 2021-05-20 08:58 | ANE.PACU2 ---
Inpatient post-anesthesia follow up: Airway intact: Yes Vital signs: Temperature 97 F Pulse Rate 71 Respiratory Rate 16 Blood Pressure 95/49 Pulse Oximetry 92 Oxygen Delivery Me thod Room Air Oxygen Flow Rate Fraction of Inspir ed Oxygen Hydration adequate: Yes Nausea and vomiting: No Pain level: 1 Mental status: Baseline
== END 2021-05-20 09:13 | disposition home or self-care (01) ==
PROVIDERS: PCP Nurse Practitioner; Visit Provider Surgery
PROC: 0DJD8ZZ Inspection of Lower Intestinal Tract, Via Natural or Artificial Opening Endoscopic (ICD-10-PCS; CPT 45378; principal; 2021-05-20 08:15)
DX: K57.30 Diverticulosis of large intestine without perforation or abscess without bleeding (principal); K64.8 Other hemorrhoids; K21.9 Gastro-esophageal reflux disease without esophagitis; E66.01 Morbid (severe) obesity due to excess calories; Z68.32 Body mass index [BMI] 32.0-32.9, adult; Z86.73 Personal history of transient ischemic attack (TIA), and cerebral infarction without residual deficits; E03.9 Hypothyroidism, unspecified; Z85.3 Personal history of malignant neoplasm of breast; Z86.16 Personal history of COVID-19; E78.5 Hyperlipidemia, unspecified; I10 Essential (primary) hypertension
CPT/HCPCS: 45378; G0121; J2704; J7030

== ENCOUNTER → 2021-06-22 08:12 | Outpatient (BNVA) | payer MEDICARE, MEDICAID, SELFPAY | PROVIDERS: PCP Nurse Practitioner; Visit Provider Nurse Practitioner | DX: E03.8 Other specified hypothyroidism (principal); E11.9 Type 2 diabetes mellitus without complications; I10 Essential (primary) hypertension | CPT/HCPCS: 80053; 80061; 83036; 84443; 85025 ==

== ENCOUNTER 2021-11-23 16:29 | Outpatient (CLI) | payer MEDICARE, MEDICAID, SELFPAY ==
--- NOTE | 2021-11-23 17:30 | CT_ITS ---
WS: [id number] CT ABDOMEN AND PELVIS NONCONTRAST HISTORY: R10.31 - Right lower quadrant pain TECHNIQUE: Imaging performed through the abdomen and pelvis. Coronal and sagittal reformats are submi tted. All CT scans at [facility] use at least one of these dose optimization techniques: auto mated exposure control; mA and/or kV adjustment per patient size (includes targeted exams where dose is matched to clinical indication); or iterative reconstruction. DLP: 1073.00 mGy.cm COMPARISON: 06/13/2017 Lower thorax: Lung bases are clear. Visualized heart is normal. No hiatal hernia. Postsurgical change s in the LEFT breast. There are several clips and is mild overlying soft tissue thickening which may be posttreatment related. Patient has a history of breast cancer. Liver: Normal size liver. No mass or bile duct dilatation. Gallbladder: Normal gallbladder. Pancreas: Normal size and attenuation. Normal pancreatic duct. No pancreatitis or mass. Spleen: Normal size spleen with a few granulomata. Adrenal glands: Normal. No mass. Right kidney: Normal size kidney with no mass or hydronephrosis. Left kidney: Normal size kidney with no mass or hydronephrosis. Aorta: Mild atherosclerosis abdominal aorta with no aneurysm. Small mesenteric and RIGHT lower quadrant lymph nodes. RIGHT lower quadrant lymph nodes are less than a centimeter. GI tract: Well-distended stomach. No small bowel obstruction. Acute inflammatory mass in the region o f the RIGHT lower quadrant. The appendix is no longer identified as cysts discrete structure. This in flammatory mass is in the region of the appendix prior study. Appendiceal lumen is dilated to 1.3 cm with a small amount of adjacent fluid and inflammation. There is mild soft tissue thickening at the c ecum. Diffuse constipation throughout the remaining colon. There are a few diverticula but no evidenc e for acute diverticulitis. Abdominal wall: Negative. No hernia. Pelvis: No free fluid or adenopathy. Nondistended urinary bladder. Uterus is normal size and antevert ed. Osseous structures: Mild increase in lumbar lordosis. No osteoblastic or osteolytic bone disease. CT/CT abdomen pelvis wo con [id number] IMPRESSION: 1. Findings of acute appendicitis. Small amount of adjacent fluid. No abscess. There are also a few small adjacent lymph nodes. 2. Otherwise mild constipation. 3. No renal obstruction. 4. Postsurgical changes in the LEFT breast with skin thickening related to pallavi atment. Notified ADAM London at 11/24/2021 7:56 AM. Message left on answer ing machine. James at [facility] confirmed this message was received.
== END 2021-11-23 16:30 | disposition home or self-care (01) ==
PROVIDERS: PCP Nurse Practitioner; Visit Provider Nurse Practitioner
DX: R10.31 Right lower quadrant pain (principal); K35.80 Unspecified acute appendicitis; K59.00 Constipation, unspecified
CPT/HCPCS: 74176; 81000; 85025

== ENCOUNTER 2021-11-24 09:33 | Inpatient (IN) | payer MEDICARE, MEDICAID, SELFPAY ==
[2021-11-24] VITALS (22 sets, daily range): BP systolic 91–155; BP diastolic 55–94; PULSE 50–107; RESP 13–22; TEMP 36.3–37.5; O2SAT 95–100; BMI 32.3
--- NOTE | 2021-11-24 09:53 | ECG_ITS ---
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 Measurements Intervals [place] Rate: 74 P: 68 MT: 176 QRS: 28 QRSD: 80 T: 54 QT: 407 QTc: 453 Interpretive Statements SINUS RHYTHM Compared to ECG 01/23/2020 23:17:03 No significant changes Electronically Signed On 11-25-2021 8:27:17 CDT by Ori Montgomery M.D. [id number]
--- NOTE | 2021-11-24 09:54 | W.ED.ABDPA2 ---
HPI - Abdominal Pain General: Chief Complaint: Abdominal Pain Stated Complaint: Possible apendicitis Time Seen by Provider: 11/24/21 09:44 Source: patient Mode of arrival: ambulatory History of Present Illness: 66-year-old female presents to the emergency room complaint of right lower quadrant abdominal pain. Her pain began about a week ago with left lower quadrant pain thought to be diverticulitis it moved to the right side a few days later and worsened. She was seen yesterday by nurse practitioner and CT was ordered was done last evening but unfortunately not read until this morning and she was found to have acute appendicitis radiology contacted the nurse practitioner contact the patient but she presented emergency room. Further nurse practitioner was able to contact her she had eaten breakfast. She states the pains a little bit better this morning than had. With the diverticulitis she had some diarrhea but no hematochezia. She is not on any anticoagulants she last ate at 815. She does take an aspirin daily. She is diabetic. MD elicited complaint: abdominal pain Pertinent past history: diverticulitis Onset (ago): week(s) Pain Consistency: constant Location: RLQ Severity: moderate Quality: sharp Radiation: none Migration to: no migration Exacerbating factors: movement and other Relieving factors: rest Associated Symptoms: Reports bloating, GI cramping, nausea and poor appetite; Denies anorexia, belching, change in bowel habits, change in stool character, chills, coffee ground emesis, constipation, diarrhea, dyspepsia, dysuria, excessive flatus, fever(s), heartburn, hematochezia, hematuria, hematemesis, fecal incontinence, loose stools, melena, syncope and vomiting Review of Systems Const: Denies: fever(s), chills, fatigue or malaise ENMT: Denies: throat pain, ear or mastoid pain, nasal discharge or nasal congestion Card: Denies: syncope Resp: Denies: dyspnea, productive cough or non-productive cough GI: Reports: abdominal pain, nausea, bloating and GI cramping; Denies: vomiting, hematemesis, coffee ground emesis, heartburn, diarrhea, constipation, belching, excessive flatus, fecal incontinence, change in bowel habits, change in stool character, hematochezia or melena : Denies: dysuria or hematuria Skin/Breast: Denies: rash or pruritus PFSH ED PFSH: Medical History Adult onset hypothyroidism Allergic rhinitis Anxiety as acute reaction to exceptional stress Breast cancer Diagnosed 2013. Treated with lumpectomy and lymph node excision. Received chemotherapy. COVID-19 Diabetes mellitus Diverticula of colon Dyslipidemia Essential hypertension Gastroesophageal reflux disease without esophagitis History of cerebrovascular accident Serous cystadenoma of left ovary Bilateral salpingo-oophorectomy performed on 02/27/2019. Final path showed serous cystadenoma. Urinary incontinence 01/10/2019: Reports stress and urgency incontinence with urgency Surgical History History of removal of Port-a-Cath (02/26/14) Inserted on 10/17/2013 and removed on 02/26/2014. Both performed by Dr. Suarez at [facility] and [place], [place] S/P bilateral salpingo-oophorectomy (02/27/19) Laparoscopic. Diag: Left ovarian cyst. Performed by Dr. Han at [facility] in [place], [place]. Final path showed: Left serous cystadenoma. S/P lumpectomy of breast (09/12/13) Diagnosed with breast cancer. S/P lymph node biopsy (09/21/13) Axillary, as part of the evaluation for breast cancer. Status post colonoscopy (05/20/21) Family History Father Stroke Heart disease Sister Hypertension Social History Smoking and tobacco status: former smoker Quit status (tobacco): has quit using tobacco Year quit tobacco: 1974 Second hand smoke exposure: No Smoking risk assessment/counseling performed?: No Alcohol intake: never Desire information about alcohol rehabilitation?: No Counseling given: No Desire information about substance/drug rehabilitation?: No Counseling given: No Caregiver/support person: No Lives independently: Yes Household members: family Marital status: Single Current occupational status: disabled History of recent travel: No Current gender identity: Female Additional social history: Well balanced diet Physical Exam Const: COMMON NORMALS: no acute distress GENERAL APPEARANCE: cooperative and comfortable ORIENTATION/CONSCIOUSNESS: Yes awake, Yes oriented to person, Yes oriented to place and Yes oriented to time HENMT: COMMON NORMALS: normocephalic, atraumatic and hearing grossly normal bilaterally HEAD & SCALP: normocephalic and atraumatic Resp: COMMON NORMALS: normal respiratory effort, No retractions, No use of accessory muscles and clear to auscultation bilaterally AUSCULTATION: clear to auscultation bilaterally Cardio: COMMON NORMALS: regular rate, regular rhythm and No murmurs present (Cardio) RATE: regular rate RHYTHM: regular rhythm GI: COMMON NORMALS: No hepatosplenomegaly present AUSCULTATION: Yes normoactive bowel sounds PALPATION: Yes Tenderness to palpation present (GI) Details: RLQ, Yes Guarding due to palpation present (GI) in the RLQ and Yes No hepatosplenomegaly present Extremity: COMMON NORMALS: normal to inspection, capillary refill normal, no clubbing, cyanosis or edema, no calf tenderness and no pedal edema Neuro: SENSORIUM/ORIENTATION: Yes oriented to person, Yes oriented to place and Yes oriented to time Skin: COMMON NORMALS: no rashes or lesions noted GENERAL SKIN EXAM: no rashes or lesions noted Course Vital Signs: Vital signs: Vital Signs Temperature 98.2 F 11/24/21 09:38 Pulse Rate 86 11/24/21 09:54 Respiratory Rate 18 11/24/21 09:54 Blood Pressure 142/77 11/24/21 09:54 Pulse Oximetry 97 11/24/21 09:54 Oxygen Delivery Me thod 11/24/21 09:54 MDM - Abdominal Pain Medical Decision Making Acute appendicitis on CT. Exam consistent. Patient last ate an hour and 45 minutes prior. We will give her Primaxin since she is allergic to penicillin. Pain medications and IV fluids, Preoperative labs discussed with surgery admit to surgery for definitive care. Medical Records I reviewed the patient's medical records. Lab Data I reviewed the patient's lab results. : 11/24/21 09:55 11/24/21 09:55 Labs/Radiology: Laboratory Results WBC 9.3 10^3/uL (4.0-10.0) 11/24/21 09:55 RBC 4.51 10^6/uL (4.1-5.3) 11/24/21 09:55 Hgb 13.9 g/dL (11.5-15.3) 11/24/21 09:55 Hct 42.4 % (37.0-47.0) 11/24/21 09:55 MCV 94.0 fl (81-99) 11/24/21 09:55 MCH 30.8 pg (28.0-34.0) 11/24/21 09:55 MCHC 32.8 g/dL (30.0-36.0) 11/24/21 09:55 RDW 14.1 % (12.1-15.1) 11/24/21 09:55 Plt Count 303 10^3/cmm (130-400) 11/24/21 09:55 MPV 10.7 fL (7.4-10.4) H 11/24/21 09:55 Neut % (Auto) 76.4 % 11/24/21 09:55 Lymph % (Auto) 14.5 % 11/24/21 09:55 Dane % (Auto) 6.1 % 11/24/21 09:55 Eos % (Auto) 1.3 % 11/24/21 09:55 Baso % (Auto) 1.1 % 11/24/21 09:55 Neut # (Auto) 7.10 10^3/uL (1.8-7.7) 11/24/21 09:55 Lymph # (Auto) 1.4 10^3/uL (0.8-4.8) 11/24/21 09:55 Dane # (Auto) 0.6 10^3/uL (0.2-0.9) 11/24/21 09:55 Eos # (Auto) 0.1 10^3/uL (0.0-0.8) 11/24/21 09:55 Baso # (Auto) 0.1 10^3/uL (0.0-0.1) 11/24/21 09:55 Nucleated RBC % (auto) 0 % 11/24/21 09:55 Nucleated RBCs # 0.0 /100WBC 11/24/21 09:55 Discharge Plan Discharge Patient Disposition: Admitted As Inpatient Clinical Impression: Acute appendicitis Condition: Stable Prescriptions: No Action ciprofloxacin HCl [Cipro] 500 mg tablet 500 mg PO Q12H Qty: 20 0RF metronidazole 500 mg tablet 500 mg PO Q12H Qty: 20 0RF One A Day Vitamin Tablet 1 tab PO DAILY Vitor Mag Zinc Plus D3 333 mg-133 unit -133 mg-5 mg Tablet 2 tab PO DAILY@12 Probiotic Blend 2 billion cell-50 mg Capsule 1 cap PO DAILY Rx Instructions: give with meal/snack atorvastatin 20 mg tablet 20 mg PO BEDTIME@20 aspirin 81 mg tablet,delayed release (DR/EC) 81 mg PO DAILY levothyroxine 50 mcg tablet 50 mcg PO DAILY@06 lisinopril 30 mg tablet 30 mg PO BEDTIME@20 Referrals: Hermann Villarreal FNP-C [Primary Care Provider] - Patient Instructions: Opioid Safety, Pain Management Coding Level of Care Code ED Inclusion Teacher for Chg Fwd Exam Detailed
[2021-11-24 10:09] LABS: Basophils # 0.1 10^3/uL (0.0-0.1); Basophils % 1.1 %; Eosinophils # 0.1 10^3/uL (0.0-0.8); Eosinophils % 1.3 %; Hematocrit 42.4 % (37.0-47.0); Hemoglobin 13.9 g/dL (11.5-15.3); Lymphocytes # 1.4 10^3/uL (0.8-4.8); Lymphocytes % 14.5 %; Mean Corpuscular HGB Conc 32.8 g/dL (30.0-36.0); Mean Corpuscular Hemoglobin 30.8 pg (28.0-34.0); Mean Platelet Volume 10.7 fL (7.4-10.4); Monocytes # 0.6 10^3/uL (0.2-0.9); Monocytes % 6.1 %; Neutrophils % 76.4 %; Nucleated Red Blood Cells % 0 %; Platelet Count 303 10^3/cmm (130-400); Red Blood Count 4.51 10^6/uL (4.1-5.3); Red Cell Distribution Width 14.1 % (12.1-15.1); White Blood Count 9.3 10^3/uL (4.0-10.0)
[2021-11-24 10:20] LABS: INR 0.95 (0.8-1.2)
[2021-11-24] MEDS: ondansetron 2 mg/ML SDV 2 mL 4 MG IVP (10:21)
[2021-11-24 10:22] LABS: Partial Thromboplastin Time 29.7 SECONDS (23.9-36.7)
[2021-11-24 10:29] LABS: Alanine Aminotransferase 11 U/L (0-33); Albumin Level 3.7 g/dL (3.5-5.2); Alkaline Phosphatase 68 U/L (35-105); Anion Gap 16.7 (5-19); Aspartate Amino Transferase 12 U/L (0-32); Blood Urea Nitrogen 14 mg/dL (8-23); Calcium 9.2 mg/dL (8.5-10.5); Carbon Dioxide 25 mmol/L (22-29); Chloride 102 mmol/L (98-107); Creatinine Clr Calc Pharmacy 68.8128; Globulin 3.5 g/dL (1.3-4.6); Glomerular Filtration Rate 100.3 mL/min (90-130); Glucose 100 mg/dL (65-115); Osmolality Calculated 291 mOsm/kg (285-295); Potassium 3.7 mmol/L (3.5-5.1); Sodium 140 mmol/L (136-145); Total Bilirubin 0.7 mg/dL (0.15-1.2); Total Protein 7.2 g/dL (6.6-8.7)
[2021-11-24 10:31] LABS: Lactic Sepsis W/Reflex 1.7 mmol/L (0.5-2.2)
[2021-11-24] MEDS: lactated ringers 1,000 ML 999 ML IV (10:40)
[2021-11-24] MEDS: sodium chlor 0.9% + KCl 20 mEq 20 MEQ/1,000 ML BAG 125 MEQ IV (13:11)
--- NOTE | 2021-11-24 13:19 | P.ANESASSM_ITS ---
Pre-Anesthetic Assessment Height/Weight: Height 1.57 m Weight 80.286 kg Temp Pulse Resp BP Pulse Ox O2 Del Method 98.2 F 93 16 146/80 98 11/24/21 09:38 11/24/21 13:00 11/24/21 12:30 11/24/21 13:00 11/24/21 13:00 11/24/21 12:30 Preop Diagnosis: diagnostic Appendectomy Familial anesthetic complications: None Last intake: 0815 AM - 1 egg and a piece of toast (light meal) Social No alcohol and No tobacco Exam alert, oriented x 3, clear to auscultation bilaterally and regular rate & rhythm Airway Mallampati: Class II Dentition: chipped CV/HEM Hypertension Metabolic Hyperlipidemia and Thyroid Disease Neuropsych Cerebrovascular Accident Anesthetic Plan ASA status: 3 Anesthesia: General Risk of > 500 ml blood loss (7ml/kg in children): No Medications/Allergies Home Medications Medication Instructions Recorded Confirmed Last Taken Type ciprofloxacin HCl 500 mg tablet 500 mg PO Q12H #20 tabs 11/23/21 11/24/21 11/24/21 08:00 Rx (Cipro) metronidazole 500 mg tablet 500 mg PO Q12H #20 tabs 11/23/21 11/24/21 11/24/21 08:00 Rx L.acidophil-L.casei-B.bifid-B.longum-FOS 1 cap PO DAILY 11/24/21 11/24/21 11/22/21 History 2 billion cell-50 mg capsule (Probiotic Blend) aspirin 81 mg tablet,delayed 81 mg PO DAILY 11/24/21 11/24/21 11/22/21 History release atorvastatin 20 mg tablet 20 mg PO BEDTIME@20 11/24/21 11/24/21 11/23/21 History calcium carb 333 mg-vit D3 133 2 tab PO DAILY@12 11/24/21 11/24/21 11/22/21 History unit-mag ox 133 mg-zinc oxide 5 mg tab (Vitor Mag Zinc Plus D3) levothyroxine 50 mcg tablet 50 mcg PO DAILY@06 11/24/21 11/24/21 11/24/21 History lisinopril 30 mg tablet 30 mg PO BEDTIME@20 11/24/21 11/24/21 11/23/21 History multivitamin 1 tab PO DAILY 11/24/21 11/24/21 Unknown History Allergies Allergy/AdvReac Type Severity Reaction Status Date / Time codeine Allergy ALGY-Hives Verified 11/24/21 09:55 haloperidol Allergy Weird Verified 11/24/21 09:55 feeling morphine Allergy Weird Verified 11/24/21 09:55 feeling /confusion Penicillins Allergy Hives/Itchi Verified 11/24/21 09:55 ng Current Medications Generic Name Dose Route Start Last Admin Trade Name Freq PRN Reason Stop Dose Admin Potassium Chloride/Sodium Chloride 20 meq in 1,000 mls @ 125 mls/hr 11/24/21 10:15 11/24/21 13:11 Sodium Chlor 0.9% + Kcl 20 Meq IV 125 mls/hr .Q8H CADEN Administration PFSH Anesthesia Medical History Adult onset hypothyroidism Allergic rhinitis Anxiety as acute reaction to exceptional stress Breast cancer Diagnosed 2013. Treated with lumpectomy and lymph node excision. Received chemotherapy. COVID-19 Diabetes mellitus Diverticula of colon Dyslipidemia Essential hypertension Gastroesophageal reflux disease without esophagitis History of cerebrovascular accident Serous cystadenoma of left ovary Bilateral salpingo-oophorectomy performed on 02/27/2019. Final path showed serous cystadenoma. Urinary incontinence 01/10/2019: Reports stress and urgency incontinence with urgency Surgical History History of removal of Port-a-Cath (02/26/14) Inserted on 10/17/2013 and removed on 02/26/2014. Both performed by Dr. Suarez at [facility] and [place], [place] S/P bilateral salpingo-oophorectomy (02/27/19) Laparoscopic. Diag: Left ovarian cyst. Performed by Dr. Han at [facility] in [place], [place]. Final path showed: Left serous cystadenoma. S/P lumpectomy of breast (09/12/13) Diagnosed with breast cancer. S/P lymph node biopsy (09/21/13) Axillary, as part of the evaluation for breast cancer. Status post colonoscopy (05/20/21) Family History Father Stroke Heart disease Sister Hypertension Social History Smoking and tobacco status: former smoker Quit status (tobacco): has quit using tobacco Year quit tobacco: 1974 Second hand smoke exposure: No Smoking risk assessment/counseling performed?: No Alcohol intake: never Desire information about alcohol rehabilitation?: No Counseling given: No Desire information about substance/drug rehabilitation?: No Counseling given: No Caregiver/support person: No Lives independently: Yes Household members: family Marital status: Single Current occupational status: disabled History of recent travel: No Current gender identity: Female Additional social history: Well balanced diet Data Anesthesia : 11/24/21 09:55 11/24/21 09:55 Short CBC 11/24/21 Range/Units 09:55 WBC 9.3 (4.0-10.0) 10^3/uL Hgb 13.9 (11.5-15.3) g/dL Hct 42.4 (37.0-47.0) % MCV 94.0 (81-99) fl Plt Count 303 (130-400) 10^3/cmm Neut % (Auto) 76.4 % Neut # (Auto) 7.10 (1.8-7.7) 10^3/uL BMP 11/24/21 09:55 Sodium 140 Potassium 3.7 Chloride 102 Carbon Dioxide 25 BUN 14 Creatinine 0.6 Glucose 100 Calcium 9.2 Liver Function 11/24/21 Range/Units 09:55 Total Bilirubin 0.7 (0.15-1.2) mg/dL AST 12 (0-32) U/L ALT 11 (0-33) U/L Alkaline Phosphatase 68 (35-105) U/L Albumin 3.7 (3.5-5.2) g/dL Coags 11/24/21 09:55 PT 13.00 INR 0.95 APTT 29.7 Microbiology 11/24/21 10:09 Blood Culture - Preliminary Blood SPECIMEN COLLECTED 11/24/21 10:10 Blood Culture - Preliminary Blood SPECIMEN COLLECTED Cardiac Studies: Echocardiogram Ultrasound 01/24/20
[2021-11-24] MEDS: pantoprazole 40 mg SDV IVP (13:38)
[2021-11-24] MEDS: sodium chloride 0.9% 1,000 ML 30 ML IV (16:25)
--- NOTE | 2021-11-24 16:27 | PM.HP ---
Providers/Chief Complaint Admitting Physician: Roberto Carlos Garcia DO Primary Care Provider: AIDEN London-C Chief Complaint: Possible apendicitis History of Present Illness Tianna Mckeon is a 66 year old female who presented to the hospital with a 2-day history of right lower quadrant abdominal pain. She reports that the pain is sharp and constant. The pain radiates across the abdomen. Palpation makes pain worse. Nothing makes pain better. She denies any nausea or vomiting, fever or chills. CT shows acute appendicitis. She last ate at 815 this morning so we had to wait till this afternoon to perform appendectomy. Review of Systems General: Reports: 10 or more systems reviewed and unremarkable except in HPI and below Medications/Allergies Home Medications Medication Instructions Recorded Confirmed Last Taken Type ciprofloxacin HCl 500 mg tablet 500 mg PO Q12H #20 tabs 11/23/21 11/24/21 11/24/21 08:00 Rx (Cipro) metronidazole 500 mg tablet 500 mg PO Q12H #20 tabs 11/23/21 11/24/21 11/24/21 08:00 Rx L.acidophil-L.casei-B.bifid-B.longum-FOS 1 cap PO DAILY 11/24/21 11/24/21 11/22/21 History 2 billion cell-50 mg capsule (Probiotic Blend) aspirin 81 mg tablet,delayed 81 mg PO DAILY 11/24/21 11/24/21 11/22/21 History release atorvastatin 20 mg tablet 20 mg PO BEDTIME@20 11/24/21 11/24/21 11/23/21 History calcium carb 333 mg-vit D3 133 2 tab PO DAILY@12 11/24/21 11/24/21 11/22/21 History unit-mag ox 133 mg-zinc oxide 5 mg tab (Vitor Mag Zinc Plus D3) levothyroxine 50 mcg tablet 50 mcg PO DAILY@06 11/24/21 11/24/21 11/24/21 History lisinopril 30 mg tablet 30 mg PO BEDTIME@20 11/24/21 11/24/21 11/23/21 History multivitamin 1 tab PO DAILY 11/24/21 11/24/21 Unknown History Allergies Allergy/AdvReac Type Severity Reaction Status Date / Time codeine Allergy ALGY-Hives Verified 11/24/21 09:55 haloperidol Allergy Weird Verified 11/24/21 09:55 feeling morphine Allergy Weird Verified 11/24/21 09:55 feeling /confusion Penicillins Allergy Hives/Itchi Verified 11/24/21 09:55 ng PFSH Acute PFSH: Medical History Adult onset hypothyroidism Allergic rhinitis Anxiety as acute reaction to exceptional stress Breast cancer Diagnosed 2013. Treated with lumpectomy and lymph node excision. Received chemotherapy. COVID-19 Diabetes mellitus Diverticula of colon Dyslipidemia Essential hypertension Gastroesophageal reflux disease without esophagitis History of cerebrovascular accident Serous cystadenoma of left ovary Bilateral salpingo-oophorectomy performed on 02/27/2019. Final path showed serous cystadenoma. Urinary incontinence 01/10/2019: Reports stress and urgency incontinence with urgency Surgical History History of removal of Port-a-Cath (02/26/14) Inserted on 10/17/2013 and removed on 02/26/2014. Both performed by Dr. Suarez at [facility] and [place], [place] S/P bilateral salpingo-oophorectomy (02/27/19) Laparoscopic. Diag: Left ovarian cyst. Performed by Dr. Han at [facility] in [place], [place]. Final path showed: Left serous cystadenoma. S/P lumpectomy of breast (09/12/13) Diagnosed with breast cancer. S/P lymph node biopsy (09/21/13) Axillary, as part of the evaluation for breast cancer. Status post colonoscopy (05/20/21) Family History Father Stroke Heart disease Sister Hypertension Social History Smoking and tobacco status: former smoker Quit status (tobacco): has quit using tobacco Year quit tobacco: 1974 Second hand smoke exposure: No Smoking risk assessment/counseling performed?: No Alcohol intake: never Desire information about alcohol rehabilitation?: No Counseling given: No Desire information about substance/drug rehabilitation?: No Counseling given: No Caregiver/support person: No Lives independently: Yes Household members: family Marital status: Single Current occupational status: disabled History of recent travel: No Current gender identity: Female Additional social history: Well balanced diet Vitals/I&O/Wt Last Vital Signs Temp 99.5 F 11/24/21 14:58 Pulse 94 11/24/21 14:58 Resp 17 11/24/21 14:58 BP 144/80 11/24/21 14:58 Pulse Ox 98 11/24/21 14:58 O2 Del Method 11/24/21 15:03 11/24/21 11/24/21 11/24/21 06:59 14:59 22:59 Intake Total 1100 / 1100 Balance 1100 / 1100 Weight last 48 hrs Weight 177 lb Physical Exam Narrative: General : Patient is well developed , no acute distress, oriented x3 Head : Normal cephalic, a-traumatic. Ears : Pinnae and external canal are normal. Hearing is normal. Eyes : PERRLA, Sclera and injection are normal. No conjunctival discharge. Nose : Mucous membranes are without erythema. Throat : buccal mucosa is normal, gums are without significant recession or hypertrophy. Lungs : Equal chest rise bilaterally, no use of accessory muscles, trachea is midline. Cor : Rate and rhythm are normal. Abdomen : Soft, ND, tender palpation right lower quadrant, no g/r/m Extremities : No edema, no cyanosis or clubbing, dorsalis pedis pulses are present bilaterally, non-tender to palpation of calves. Upper extremities are normal bilaterally. Back : non-tender to palpation, no CVA tenderness. Neuro : CN II - XII intact, Upper and lower extremities have equal and full strength Data : 11/24/21 09:55 11/24/21 09:55 Micro: Microbiology 11/24/21 10:09 Blood Culture - Preliminary Blood SPECIMEN COLLECTED 11/24/21 10:10 Blood Culture - Preliminary Blood SPECIMEN COLLECTED A&P Assessment and plan (1) Acute appendicitis: Plan Laparoscopic Appendectomy The risks and benefits of the procedure, including but not limited to, bleeding, infection, scar, numbness, pain, damage to surrounding structures, conversion to an open procedure, were explained to the patient. He is understanding of the risks and wishes to proceed. Attestations Medical Necessity Statement*: Patient requires at least 1 night in the hospital for IV antibiotics and observation Coding Level of Care Code Acute Java Lead Architect for Chandler Francis Diagnoses Acute appendicitis K35.80
[2021-11-24] MEDS: ciprofloxacin 400 MG/200 ML PREMIX 200 MG IV (16:35)
[2021-11-24] MEDS: metroNIDAZOLE IV 500 MG/100 ML PREMIX 100 MG IV ×2 (16:52→23:20)
--- NOTE | 2021-11-24 17:43 | P.OP_ITS ---
Operative Report Date of procedure: November 24, 2021 Pre-op diagnosis: Preop Diagnosis acute appendicitis Post-op diagnosis: same Procedure done: Laparoscopic appendectomy Specimens removed/disposition: Appendix Surgeon: Dr. Roberto Carlos Garcia DO Anesthesia: General Estimated blood loss (mL): 5 Complications: None apparent Brief History: This is a very pleasant 66-year-old female has been experiencing 2 or 3 days of abdominal pain. She believes she had diverticulitis and was given antibiotics. A CT done last night was read this morning as acute appendicitis. Laparoscopic appendectomy was indicated. The risks and benefits of the procedure were explained and documented. Procedure: Patient was wheeled into the operative room and placed on the OR table in a supine position. Abdomen was inspected prepped and draped in usual sterile fashion. Time-out was performed and all present were in agreement. A 15 blade scalp was used to make a stab incision in the left upper quadrant and intra- abdominal insufflation was achieved using a Veress needle. After localizing the tissue incisions were made and a 12 millimeter trocar was placed into the umbilicus as well as a 5mm in the right lower quadrant and a 5 mm in the left lower quadrant . The appendix was identified and was very short and inflamed. I used the LigaSure to ligate the mesoappendix at the base. I then used 2 PDS endo-loops to snare the base of the appendix. I then used the LigaSure to ligate the appendix distally. The appendix was removed from the abdomen using an Endo-Catch bag through the umbilical incision. I examined the abdomen and no further pathology was identified. Hemostasis was noted. Omentum was clipped into place over the surgical site. I then closed the umbilical site with a Ehsan-Tess and 0 Vicryl suture in a figure of 8 fashion. All ports removed. Skin was washed and dried. Incisions were closed with 4 O Vicryl in a subcuticular interrupted fashion. Skin glue was applied. Patient tolerated the procedure well.
[2021-11-24] MEDS: fentaNYL 50 mcg/mL INJ 2mL IVP (18:11)
--- NOTE | 2021-11-24 19:00 | ANE.PACU2 ---
Inpatient post-anesthesia follow up: Airway intact: Yes Vital signs: Temperature 98.0 F Pulse Rate 75 Respiratory Rate 16 Blood Pressure 112/68 Pulse Oximetry 95 Oxygen Delivery Me thod Room Air Oxygen Flow Rate 8 Fraction of Inspir ed Oxygen Hydration adequate: Yes Nausea and vomiting: No Pain level: 1 Mental status: Baseline
--- NOTE | 2021-11-24 19:17 | PC.NURSE ---
Report given to Coty Roper RN.
[2021-11-24] MEDS: lactated ringers 1,000 ML 125 ML IV (21:31)
[2021-11-25] VITALS (8 sets, daily range): BP systolic 104–123; BP diastolic 62–71; PULSE 50–84; RESP 16–20; TEMP 36.6–36.8; O2SAT 95–98
[2021-11-25] MEDS: HYDROmorphone 1 mg/mL INJ 1 mL 0.25 MG IVP (00:34)
[2021-11-25 03:13] LABS: Basophils % 0.2 %; Hematocrit 34.7 % (37.0-47.0); Hemoglobin 11.1 g/dL (11.5-15.3); Lymphocytes # 0.7 10^3/uL (0.8-4.8); Lymphocytes % 4.3 %; Mean Corpuscular Hemoglobin 30.8 pg (28.0-34.0); Mean Corpuscular Volume 96.4 fl (81-99); Mean Platelet Volume 11.2 fL (7.4-10.4); Monocytes # 0.4 10^3/uL (0.2-0.9); Monocytes % 2.6 %; Neutrophils # 15.15 10^3/uL (1.8-7.7); Neutrophils % 92.4 %; Nucleated Red Blood Cells % 0 %; Platelet Count 255 10^3/cmm (130-400); Red Cell Distribution Width 14.5 % (12.1-15.1); White Blood Count 16.4 10^3/uL (4.0-10.0)
[2021-11-25] MEDS: ciprofloxacin 400 MG/200 ML PREMIX 200 MG IV ×2 (03:14→15:29)
[2021-11-25 06:04] LABS: Anion Gap 14.2 (5-19); Blood Urea Nitrogen 7 mg/dL (8-23); Calcium 8.2 mg/dL (8.5-10.5); Carbon Dioxide 23 mmol/L (22-29); Chloride 106 mmol/L (98-107); Creatinine Clr Calc Pharmacy 68.8128; Glomerular Filtration Rate 123.8 mL/min (90-130); Glucose 150 mg/dL (65-115); Osmolality Calculated 289 mOsm/kg (285-295); Potassium 4.2 mmol/L (3.5-5.1); Sodium 139 mmol/L (136-145)
[2021-11-25] MEDS: lactated ringers 1,000 ML 125 ML IV ×3 (06:09→21:25)
[2021-11-25] MEDS: metroNIDAZOLE IV 500 MG/100 ML PREMIX 100 MG IV ×2 (06:09→15:26)
--- NOTE | 2021-11-25 13:53 | PM.PN ---
Subjective Subjective: Pain controlled. No nausea or vomiting. Positive BM/flatus Vitals/I&O/Wt Last Vital Signs Temp 98.1 F 11/25/21 11:32 Pulse 59 L 11/25/21 11:32 Resp 16 11/25/21 11:32 BP 113/64 11/25/21 11:32 Pulse Ox 96 11/25/21 11:32 O2 Del Method 11/25/21 11:32 O2 Flow Rate 8 11/24/21 18:25 11/24/21 11/25/21 11/25/21 22:59 06:59 14:59 Intake Total 1230 / 2330 1100 / 3430 1000 / 1000 Output Total Balance 1220 / 2320 1100 / 3420 1000 / 1000 Weight last 48 hrs Weight 177 lb Physical Exam Narrative: General: No acute distress, awake alert and oriented x3 Abdomen: Soft, nondistended, appropriately tender to palpation, no guarding rebound or masses Incisions intact without erythema or exudate Data : 11/25/21 03:00 11/25/21 05:27 Micro: Microbiology 11/24/21 10:09 Blood Culture - Preliminary Blood NEGATIVE TO DATE 11/24/21 10:10 Blood Culture - Preliminary Blood NEGATIVE TO DATE A&P Assessment and plan (1) Acute appendicitis: Plan May have ice chips Continue antibiotics Ambulate AM labs Attestations Medical Necessity Statement*: Patient requires at least 1 more night in the hospital for IV antibiotics Coding Level of Care Code Acute Plastics Supervisor for Chandler Francis Diagnoses Acute appendicitis K35.80
[2021-11-26] VITALS: BP 112/67; PULSE 79; RESP 16; TEMP 36.8; O2SAT 95
[2021-11-26] MEDS: metroNIDAZOLE IV 500 MG/100 ML PREMIX 100 MG IV ×2 (00:17→07:56)
[2021-11-26 02:49] LABS: Basophils # 0.1 10^3/uL (0.0-0.1); Basophils % 0.4 %; Eosinophils # 0.1 10^3/uL (0.0-0.8); Eosinophils % 0.5 %; Hemoglobin 9.6 g/dL (11.5-15.3); Lymphocytes # 2.1 10^3/uL (0.8-4.8); Lymphocytes % 16.1 %; Mean Corpuscular Hemoglobin 30.9 pg (28.0-34.0); Mean Corpuscular Volume 96.5 fl (81-99); Monocytes # 0.7 10^3/uL (0.2-0.9); Monocytes % 5.4 %; Neutrophils # 10.05 10^3/uL (1.8-7.7); Neutrophils % 77.1 %; Nucleated Red Blood Cells % 0 %; Platelet Count 249 10^3/cmm (130-400); Red Blood Count 3.11 10^6/uL (4.1-5.3); Red Cell Distribution Width 14.6 % (12.1-15.1)
[2021-11-26 03:15] LABS: Anion Gap 10.6 (5-19); Blood Urea Nitrogen 5 mg/dL (8-23); Calcium 8.4 mg/dL (8.5-10.5); Carbon Dioxide 27 mmol/L (22-29); Chloride 108 mmol/L (98-107); Creatinine Clr Calc Pharmacy 68.8128; Glomerular Filtration Rate 123.8 mL/min (90-130); Glucose 103 mg/dL (65-115); Osmolality Calculated 292 mOsm/kg (285-295); Potassium 3.6 mmol/L (3.5-5.1); Sodium 142 mmol/L (136-145)
[2021-11-26] MEDS: ciprofloxacin 400 MG/200 ML PREMIX 200 MG IV (03:31)
[2021-11-26 04:00] VITALS: BP 125/75; PULSE 71; RESP 16; TEMP 36.6; O2SAT 93
[2021-11-26 07:47] VITALS: BP 133/74; PULSE 78; RESP 15; TEMP 36.7; O2SAT 95
[2021-11-26 12:00] VITALS: BP 143/78; PULSE 100; RESP 18; TEMP 36.5; O2SAT 98
--- NOTE | 2021-11-26 12:34 | PM.DCS ---
Discharge Providers Date of Admission: 11/24/21 12:06 Date of Discharge: November 26, 2021 Attending Provider at Admission: Roberto Carlos Garcia DO Attending Provider at Discharge: Roberto Carlos Garcia DO Primary Care Provider: ADAM London Diagnoses at Discharge Discharge Diagnosis (1) Acute appendicitis: Status: Acute Reason for Visit Reason for Visit: Possible apendicitis Hospital Course Hospital Course This is a very pleasant 66-year-old female who came in with acute appendicitis. She underwent laparoscopic appendectomy. She did well postoperatively and was discharged home in good condition. Physical Exam Narrative: General : Patient is well developed , no acute distress, oriented x3 Head : Normal cephalic, a-traumatic. Ears : Pinnae and external canal are normal. Hearing is normal. Eyes : PERRLA, Sclera and injection are normal. No conjunctival discharge. Nose : Mucous membranes are without erythema. Throat : buccal mucosa is normal, gums are without significant recession or hypertrophy. Lungs : Equal chest rise bilaterally, no use of accessory muscles, trachea is midline. Cor : Rate and rhythm are normal. Abdomen : Soft, ND, appropriately tender to palpation, no g/r/m Incisions intact without erythema or exudate Extremities : No edema, no cyanosis or clubbing, dorsalis pedis pulses are present bilaterally, non-tender to palpation of calves. Upper extremities are normal bilaterally. Back : non-tender to palpation, no CVA tenderness. Neuro : CN II - XII intact, Upper and lower extremities have equal and full strength Discharge Data Studies Completed and Pending Pending at discharge Category Date Time Status ES surgery / GI images Routine Exams 11/24/21 16:07 Ordered Basic Metabolic Panel AM LABS Lab 11/27/21 04:00 Ordered Blood Culture Stat Lab 11/24/21 10:09 Results Complete Blood Count w/Auto AM LABS Lab 11/27/21 04:00 Ordered Pathology: Surgical [PTH] Routine Pth 11/24/21 18:04 Received Laboratory Results WBC 13.0 10^3/uL (4.0-10.0) H 11/26/21 01:56 RBC 3.11 10^6/uL (4.1-5.3) L 11/26/21 01:56 Hgb 9.6 g/dL (11.5-15.3) L 11/26/21 01:56 Hct 30.0 % (37.0-47.0) L 11/26/21 01:56 MCV 96.5 fl (81-99) 11/26/21 01:56 MCH 30.9 pg (28.0-34.0) 11/26/21 01:56 MCHC 32.0 g/dL (30.0-36.0) 11/26/21 01:56 RDW 14.6 % (12.1-15.1) 11/26/21 01:56 Plt Count 249 10^3/cmm (130-400) 11/26/21 01:56 MPV 11.0 fL (7.4-10.4) H 11/26/21 01:56 Neut % (Auto) 77.1 % 11/26/21 01:56 Lymph % (Auto) 16.1 % 11/26/21 01:56 Haywood % (Auto) 5.4 % 11/26/21 01:56 Eos % (Auto) 0.5 % 11/26/21 01:56 Baso % (Auto) 0.4 % 11/26/21 01:56 Neut # (Auto) 10.05 10^3/uL (1.8-7.7) H 11/26/21 01:56 Lymph # (Auto) 2.1 10^3/uL (0.8-4.8) 11/26/21 01:56 Haywood # (Auto) 0.7 10^3/uL (0.2-0.9) 11/26/21 01:56 Eos # (Auto) 0.1 10^3/uL (0.0-0.8) 11/26/21 01:56 Baso # (Auto) 0.1 10^3/uL (0.0-0.1) 11/26/21 01:56 Nucleated RBC % (auto) 0 % 11/26/21 01:56 Nucleated RBCs # 0.0 /100WBC 11/26/21 01:56 PT 13.00 SECONDS (12.1-14.9) 11/24/21 09:55 INR 0.95 (0.8-1.2) 11/24/21 09:55 APTT 29.7 SECONDS (23.9-36.7) 11/24/21 09:55 Sodium 142 mmol/L (136-145) 11/26/21 01:56 Potassium 3.6 mmol/L (3.5-5.1) 11/26/21 01:56 Chloride 108 mmol/L (98-107) H 11/26/21 01:56 Carbon Dioxide 27 mmol/L (22-29) 11/26/21 01:56 Anion Gap 10.6 (5-19) 11/26/21 01:56 BUN 5 mg/dL (8-23) L 11/26/21 01:56 Creatinine 0.5 mg/dL (0.5-0.9) 11/26/21 01:56 GFR Calculation 123.8 mL/min (90-130) 11/26/21 01:56 Glucose 103 mg/dL (65-115) 11/26/21 01:56 Calculated Osmolality 292 mOsm/kg (285-295) 11/26/21 01:56 Lactic Acid 1.7 mmol/L (0.5-2.2) 11/24/21 10:08 Calcium 8.4 mg/dL (8.5-10.5) L 11/26/21 01:56 Total Bilirubin 0.7 mg/dL (0.15-1.2) 11/24/21 09:55 AST 12 U/L (0-32) 11/24/21 09:55 ALT 11 U/L (0-33) 11/24/21 09:55 Alkaline Phosphatase 68 U/L (35-105) 11/24/21 09:55 Total Protein 7.2 g/dL (6.6-8.7) 11/24/21 09:55 Albumin 3.7 g/dL (3.5-5.2) 11/24/21 09:55 Globulin 3.5 g/dL (1.3-4.6) 11/24/21 09:55 Vitals Last Vital Signs Temp 97.7 F 11/26/21 12:00 Pulse 100 11/26/21 12:00 Resp 18 11/26/21 12:00 BP 143/78 11/26/21 12:00 Pulse Ox 98 11/26/21 12:00 O2 Del Method 11/26/21 12:00 O2 Flow Rate 8 11/25/21 20:00 Discharge Plan Discharge Patient Disposition: Home Condition: Stable Prescriptions: New hydrocodone-acetaminophen 7.5-325 mg tablet 1 tab PO Q6H PRN (Reason: pain) Qty: 20 0RF Continued ciprofloxacin HCl [Cipro] 500 mg tablet 500 mg PO Q12H Qty: 20 0RF metronidazole 500 mg tablet 500 mg PO Q12H Qty: 20 0RF multivitamin Tablet 1 tab PO DAILY Vitor Mag Zinc Plus D3 333 mg-133 unit -133 mg-5 mg Tablet 2 tab PO DAILY@12 Probiotic Blend 2 billion cell-50 mg Capsule 1 cap PO DAILY Rx Instructions: give with meal/snack atorvastatin 20 mg tablet 20 mg PO BEDTIME@20 aspirin 81 mg tablet,delayed release (DR/EC) 81 mg PO DAILY levothyroxine 50 mcg tablet 50 mcg PO DAILY@06 lisinopril 30 mg tablet 30 mg PO BEDTIME@20 Discharge Orders: Discharge Order (Routine); Ordered 11/26/21 Ordered By: Roberto Carlos Garcia Referrals: Roberto Carlos Garcia DO [Physician] - 2 weeks Hermann Villarreal, MERCHANDISE ADJUSTMENT CLERK-C [Primary Care Provider] - 4-7 days Discharge Diet: Advance as tolerated Discharge Activity: Resume usual activity Patient Instructions: Opioid Safety, Post Anesthesia Care, Pain Management Activity Restrictions/Additional Instructions: Do not soak incisions underwater for 2 weeks. Shower daily. Discharge Attestations Time Spent in Discharge Care*: less than 30 min Status at Discharge: Cognitive status at discharge: cognitively intact, Behavioral status at discharge: cooperative, Quality Metrics Clinical Quality Measures [ No reported AMI, CVA or VTE this stay] Coding Level of Care Code Acute Chg FW DC note Diagnoses Acute appendicitis K35.80
[2021-11-26 15:19] VITALS: BP 143/78; PULSE 100; RESP 18; TEMP 36.5; O2SAT 98
== END 2021-11-26 14:15 | disposition home or self-care (01) | DRG 343 ==
LOC: ER 11:33 → MEDSURG 14:21
PROVIDERS: Admitting Provider Surgery; Emergency Provider Family Medicine; PCP Nurse Practitioner; Visit Provider Surgery
PROC: 0DTJ4ZZ Resection of Appendix, Percutaneous Endoscopic Approach (ICD-10-PCS; CPT 44970; principal; 2021-11-24 16:00)
DX: K35.80 Unspecified acute appendicitis (principal); E03.9 Hypothyroidism, unspecified; Z85.3 Personal history of malignant neoplasm of breast; Z92.21 Personal history of antineoplastic chemotherapy; Z86.16 Personal history of COVID-19; E11.9 Type 2 diabetes mellitus without complications; E78.5 Hyperlipidemia, unspecified; I10 Essential (primary) hypertension; K21.9 Gastro-esophageal reflux disease without esophagitis; Z86.73 Personal history of transient ischemic attack (TIA), and cerebral infarction without residual deficits; Z87.891 Personal history of nicotine dependence; Z79.82 Long term (current) use of aspirin
CPT/HCPCS: 36415; 74176; 80048; 80053; 81000; 83605; 85025; 85610; 85730; 87040; 88304; 93005; 96365; 96366; 96367; 96375; 99285; C9113; J0743; J0744; J1100; J1170; J1200; J2405; J2704; J2710; J3010; J3490; J7030; S0030

== ENCOUNTER → 2021-12-03 14:55 | Outpatient (BNVA) | payer MEDICARE, MEDICAID, SELFPAY | PROVIDERS: PCP Nurse Practitioner; Visit Provider Nurse Practitioner | DX: K52.1 Toxic gastroenteritis and colitis (principal); K57.30 Diverticulosis of large intestine without perforation or abscess without bleeding | CPT/HCPCS: 81000; 85025 ==

== ENCOUNTER → 2021-12-07 10:33 | Outpatient (BNVA) | payer MEDICARE, MEDICAID, SELFPAY | PROVIDERS: PCP Nurse Practitioner; Visit Provider Nurse Practitioner | DX: D72.829 Elevated white blood cell count, unspecified (principal); K52.1 Toxic gastroenteritis and colitis; T36.95XA Adverse effect of unspecified systemic antibiotic, initial encounter | CPT/HCPCS: 85025 ==

== ENCOUNTER → 2021-12-08 08:50 | Outpatient (BNVA) | payer MEDICARE, MEDICAID, SELFPAY | PROVIDERS: PCP Nurse Practitioner; Visit Provider Surgery | DX: Z98.890 Other specified postprocedural states (principal); K59.00 Constipation, unspecified; Z90.49 Acquired absence of other specified parts of digestive tract | CPT/HCPCS: 99024; 99203 ==

== ENCOUNTER → 2021-12-21 08:46 | Outpatient (BNVA) | payer MEDICARE, MEDICAID, SELFPAY | PROVIDERS: PCP Nurse Practitioner; Visit Provider Nurse Practitioner | DX: E03.8 Other specified hypothyroidism (principal); E78.5 Hyperlipidemia, unspecified | CPT/HCPCS: 80053; 80061; 84443; 85025 ==

== ENCOUNTER 2021-12-29 09:09 | Outpatient (CLI) | payer MEDICARE, MEDICAID, SELFPAY ==
--- NOTE | 2021-12-29 09:20 | MM_ITS ---
WS: [id number] DIAGNOSTIC BILATERAL DIGITAL BREAST TOMOSYNTHESIS MAMMOGRAPHY WITH CAD HISTORY: Annual exam. COMPARISON: 11/17/2020, 09/07/2019 and 09/04/2018 TECHNIQUE: Bilateral craniocaudad, mediolateral oblique, and mediolateral views are submitted with to mosbhavin and SM. Computer aided detection utilized. Breast composition: The breasts are heterogeneously dense, which may obscure small masses. Volume los s with post surgical lumpectomy in the central LEFT breast. There is trabecular thickening and skin t hickening which is posttreatment related. No increase in size of the distortion and post resection ca vity. There are benign calcifications in each breast. MM/[place] [id number] IMPRESSION: BI-RADS: 2-Benign FOLLOW UP: 1 Year Follow-up
== END 2021-12-29 09:10 | disposition home or self-care (01) ==
PROVIDERS: PCP Nurse Practitioner; Visit Provider Nurse Practitioner
DX: Z12.31 Encounter for screening mammogram for malignant neoplasm of breast (principal); Z85.3 Personal history of malignant neoplasm of breast
CPT/HCPCS: 77062; G0279

== ENCOUNTER 2022-02-09 13:05 | Oncology outpatient (recurring) (ONCR) | payer MEDICARE, MEDICAID, SELFPAY ==
[2022-02-09 13:54] LABS: Basophils # 0.1 10^3/uL (0.0-0.1); Basophils % 0.7 %; Eosinophils # 0.1 10^3/uL (0.0-0.8); Eosinophils % 0.9 %; Hematocrit 43.6 % (37.0-47.0); Lymphocytes # 1.7 10^3/uL (0.8-4.8); Mean Corpuscular HGB Conc 32.1 g/dL (30.0-36.0); Mean Corpuscular Hemoglobin 29.9 pg (28.0-34.0); Mean Platelet Volume 10.7 fL (7.4-10.4); Monocytes # 0.6 10^3/uL (0.2-0.9); Monocytes % 6.1 %; Neutrophils # 7.85 10^3/uL (1.8-7.7); Neutrophils % 75.9 %; Nucleated Red Blood Cells % 0 %; Platelet Count 303 10^3/cmm (130-400); Red Blood Count 4.69 10^6/uL (4.1-5.3); Red Cell Distribution Width 14.7 % (12.1-15.1); White Blood Count 10.3 10^3/uL (4.0-10.0)
[2022-02-09 14:15] LABS: Alanine Aminotransferase 14 U/L (0-33); Albumin Level 3.8 g/dL (3.5-5.2); Alkaline Phosphatase 76 U/L (35-105); Anion Gap 12.9 (5-19); Aspartate Amino Transferase 16 U/L (0-32); Blood Urea Nitrogen 15 mg/dL (8-23); Calcium 9.6 mg/dL (8.5-10.5); Carbon Dioxide 28 mmol/L (22-29); Chloride 101 mmol/L (98-107); Globulin 3.6 g/dL (1.3-4.6); Glomerular Filtration Rate 123.4 mL/min (90-130); Glucose 103 mg/dL (65-115); Osmolality Calculated 287 mOsm/kg (285-295); Potassium 3.9 mmol/L (3.5-5.1); Sodium 138 mmol/L (136-145); Total Bilirubin 0.6 mg/dL (0.15-1.2); Total Protein 7.4 g/dL (6.6-8.7)
[2022-02-11 11:53] LABS: Leukemia Profile (BBPL) See Report; Lymphoma Profile (BBPL) See Report
== END 2022-02-13 23:59 | disposition home or self-care (01) ==
PROVIDERS: PCP Nurse Practitioner; Visit Provider Internal Medicine Hematology & Oncology
DX: Z08 Encounter for follow-up examination after completed treatment for malignant neoplasm (principal); Z85.3 Personal history of malignant neoplasm of breast; M85.80 Other specified disorders of bone density and structure, unspecified site; N83.202 Unspecified ovarian cyst, left side; D72.829 Elevated white blood cell count, unspecified; Z87.891 Personal history of nicotine dependence; Z92.21 Personal history of antineoplastic chemotherapy; Z92.3 Personal history of irradiation
CPT/HCPCS: 36415; 80053; 85025; 88184; 88185; 99214

== ENCOUNTER → 2022-02-24 10:15 | Outpatient (BNVA) | payer MEDICARE, MEDICAID, SELFPAY | PROVIDERS: PCP Nurse Practitioner; Visit Provider Nurse Practitioner Family | DX: R19.7 Diarrhea, unspecified (principal); K57.92 Diverticulitis of intestine, part unspecified, without perforation or abscess without bleeding | CPT/HCPCS: 80053; 85025 ==

== ENCOUNTER → 2022-03-01 11:14 | Outpatient (BNVA) | payer MEDICARE, MEDICAID, SELFPAY | PROVIDERS: PCP Nurse Practitioner; Visit Provider Nurse Practitioner Family | DX: R19.7 Diarrhea, unspecified (principal); K57.92 Diverticulitis of intestine, part unspecified, without perforation or abscess without bleeding | CPT/HCPCS: 82274; 87177; 87209; 87506 ==

== ENCOUNTER 2022-04-19 11:34 | Oncology outpatient (recurring) (ONCR) | payer MEDICARE, MEDICAID, SELFPAY ==
[2022-04-19 12:12] LABS: Basophils # 0.1 10^3/uL (0.0-0.1); Basophils % 0.6 %; Eosinophils # 0.1 10^3/uL (0.0-0.8); Eosinophils % 0.8 %; Hematocrit 43.2 % (37.0-47.0); Hemoglobin 13.9 g/dL (11.5-15.3); Lymphocytes % 20.2 %; Mean Corpuscular HGB Conc 32.2 g/dL (30.0-36.0); Mean Corpuscular Hemoglobin 28.7 pg (28.0-34.0); Mean Corpuscular Volume 89.3 fl (81-99); Mean Platelet Volume 10.9 fL (7.4-10.4); Monocytes # 0.6 10^3/uL (0.2-0.9); Monocytes % 6.4 %; Neutrophils # 7.14 10^3/uL (1.8-7.7); Neutrophils % 71.7 %; Nucleated Red Blood Cells % 0 %; Platelet Count 273 10^3/cmm (130-400); Red Blood Count 4.84 10^6/uL (4.1-5.3); Red Cell Distribution Width 16.4 % (12.1-15.1)
== END 2022-05-14 23:59 | disposition home or self-care (01) ==
PROVIDERS: PCP Nurse Practitioner; Visit Provider Internal Medicine Hematology & Oncology
DX: Z08 Encounter for follow-up examination after completed treatment for malignant neoplasm (principal); Z85.3 Personal history of malignant neoplasm of breast; D72.829 Elevated white blood cell count, unspecified; Z92.21 Personal history of antineoplastic chemotherapy; Z92.3 Personal history of irradiation
CPT/HCPCS: 36415; 85025; 99214

== ENCOUNTER → 2022-05-26 09:06 | Outpatient (BNVA) | payer MEDICARE, MEDICAID, SELFPAY | PROVIDERS: PCP Nurse Practitioner; Visit Provider Nurse Practitioner | DX: E03.8 Other specified hypothyroidism (principal); I10 Essential (primary) hypertension | CPT/HCPCS: 80053; 80061; 84443 ==

== ENCOUNTER → 2022-06-15 15:42 | Outpatient (BNVA) | payer MEDICARE, MEDICAID, SELFPAY | PROVIDERS: PCP Nurse Practitioner; Visit Provider Otolaryngology | DX: R13.10 Dysphagia, unspecified (principal); R49.0 Dysphonia; K21.9 Gastro-esophageal reflux disease without esophagitis; M26.623 Arthralgia of bilateral temporomandibular joint | CPT/HCPCS: 31575; 99204 ==

== ENCOUNTER 2022-07-02 07:54 | Outpatient (CLI) | payer MEDICARE, MEDICAID, SELFPAY ==
--- NOTE | 2022-07-02 08:30 | FL_ITS ---
WS: [id number] Modified barium swallow, 07/02/2022 Clinical Data: Other dysphagia Comparison: None. Fluoroscopy time: 1min [id number] # of spot films: Findings: Patient propelled the oral contents normally. There was slight premature spillage. There is minimal v allecular pooling which cleared easily. There was a single episode of penetration. The barium tablet passed normally from the oral pharynx, hypopharynx, esophagus and into the stomach. FL/FL barium swallow modifd [id number] Impression: Single episode of penetration, otherwise no significant abnormalities.
== END 2022-07-02 07:55 | disposition home or self-care (01) ==
LOC: RAD 07:57
PROVIDERS: PCP Nurse Practitioner; Visit Provider Otolaryngology
DX: R13.19 Other dysphagia
CPT/HCPCS: 31575; 74230; 92611; 99204

== ENCOUNTER → 2022-09-16 10:21 | Outpatient (BNVA) | payer MEDICARE, MEDICAID, SELFPAY | PROVIDERS: PCP Nurse Practitioner; Visit Provider Internal Medicine Cardiovascular Disease | DX: R00.0 Tachycardia, unspecified (principal); E78.5 Hyperlipidemia, unspecified; I10 Essential (primary) hypertension; Z86.73 Personal history of transient ischemic attack (TIA), and cerebral infarction without residual deficits; M79.89 Other specified soft tissue disorders; R07.9 Chest pain, unspecified; E03.8 Other specified hypothyroidism; Z87.891 Personal history of nicotine dependence | CPT/HCPCS: 93005; 99204; 99214 ==

== ENCOUNTER → 2022-09-16 11:29 | Outpatient (BNVA) | payer MEDICARE, MEDICAID, SELFPAY | PROVIDERS: PCP Nurse Practitioner; Visit Provider Internal Medicine Cardiovascular Disease | DX: R07.9 Chest pain, unspecified (principal); R00.0 Tachycardia, unspecified; E78.5 Hyperlipidemia, unspecified; I10 Essential (primary) hypertension; E04.8 Other specified nontoxic goiter; Z86.73 Personal history of transient ischemic attack (TIA), and cerebral infarction without residual deficits; M79.89 Other specified soft tissue disorders; Z87.891 Personal history of nicotine dependence; I49.3 Ventricular premature depolarization | CPT/HCPCS: 93005 ==

== ENCOUNTER 2022-09-27 09:24 | Outpatient (CLI) | payer MEDICARE, MEDICAID, SELFPAY ==
--- NOTE | 2022-09-27 10:15 | USCV_ITS ---
Tianna Mckeon Age: 67 Gender: F : 1955 Exam Date: 09/27/2022 10:26 Ordering Phys: Karol Muniz MD ([email or web address]) Technologist: [place] [facility] [place]: tachycardia, swelling BP: 123 / 73 HR: 77 Rhythm: Sinus Technical Quality: Adequate MEASUREMENTS (Male / Female) Normal Values 2D ECHO LV Diastolic Diameter PLAX 3.9 cm 4.2 - 5.9 / 3.9 - 5.3 cm LV Systolic Diameter PLAX 2.2 cm IVS Diastolic Thickness 1.1 cm 0.6 - 1.0 / 0.6 - 0.9 cm IVS Systolic Thickness 1.5 cm LVPW Diastolic Thickness 0.8 cm 0.6 - 1.0 / 0.6 - 0.9 cm LVPW Systolic Thickness 1.3 cm LVOT Diameter 2.0 cm LV Ejection Fraction 2D Teich 74.5 % LV Ejection Fraction MOD 2C 72.7 % LV Ejection Fraction 2C AL 71.8 % LA Diameter 3.2 cm M-MODE Aortic Annulus Diameter 2.9 cm LA Ao Ratio MM 1.0 MV E Point Septal Separation 1.0 cm DOPPLER AV Peak Velocity 130.0 cm/s LVOT Peak Velocity 91.0 cm/s AV Area Cont Eq vti 2.5 cm squared AV Area Cont Eq pk 2.3 cm squared MV Area PHT 5.0 cm squared Mitral E to A Ratio 1.0 MV E' Velocity 51.0 cm/s Mitral E to MV E' Ratio 11.5 Mitral E to LV E' Lateral Ratio 9.3 Mitral E to LV E' Septal Ratio 15.4 TR Peak Velocity 146.8 cm/s TR Peak Gradient 8.6 mmHg TV Peak E Velocity 92.0 cm/s Right Atrial Pressure 3.0 mmHg Pulmonary Artery Systolic Pressu 11.6 mmHg RV Acceleration Time 0.1 s FINDINGS Left Ventricle Normal LV size with a slightly diminished ejection fraction of around 45 to 50%. Mild diffuse hypokinesis of the left ventricle.Grade I/IV diastolic dysfunction (abnormal relaxation filling pattern), normal to mildly elevated filling pressures. Right Ventricle Mildly increased right ventricular size. Normal right ventricular systolic function. Right Atrium Mildly increased right atrial size. Left Atrium Mildly increased left atrial size. Mitral Valve Thickened mitral valve. Mild mitral valve regurgitation. Aortic Valve Thickened aortic valve. Tricuspid Valve Trace tricuspid valve regurgitation. Pulmonic Valve No gross abnormalities noted Pericardium No pericardial effusion. Aorta Normal aortic annulus size. IVC Inferior vena cava not visualized. CONCLUSIONS Normal LV size with a slightly diminished ejection fraction of around 45 to 50%. Mild diffuse hypokinesis of the left ventricle.Grade I/IV diastolic dysfunction (abnormal relaxation filling pattern), normal to mildly elevated filling pressures. Mild biatrial enlargement. Thickened mitral valve. Mild mitral valve regurgitation. Thickened aortic valve. Trace tricuspid valve regurgitation. There is no pericardial effusion. Comparison with the previous study is difficult because of the difference in the technical quality. Dr Karol Muniz MD FACC (Electronically Signed) Final Date: 28 September 2022 23:03 S
== END 2022-09-27 09:25 | disposition home or self-care (01) ==
PROVIDERS: PCP Nurse Practitioner; Visit Provider Internal Medicine Cardiovascular Disease
DX: I08.3 Combined rheumatic disorders of mitral, aortic and tricuspid valves (principal); R06.09 Other forms of dyspnea
CPT/HCPCS: 93306; 99204

== ENCOUNTER → 2022-10-27 10:19 | Outpatient (BNVA) | payer MEDICARE, MEDICAID, SELFPAY | PROVIDERS: PCP Nurse Practitioner; Visit Provider Nurse Practitioner | DX: R00.0 Tachycardia, unspecified (principal); E78.5 Hyperlipidemia, unspecified; E03.8 Other specified hypothyroidism; I10 Essential (primary) hypertension; E11.9 Type 2 diabetes mellitus without complications | CPT/HCPCS: 80053; 80061; 83036; 84443; 85025 ==

== ENCOUNTER 2022-11-03 23:48 | Emergency (ER) | payer MEDICARE, MEDICAID, SELFPAY ==
[2022-11-03 23:58] VITALS: BP 150/69; PULSE 99; RESP 18; TEMP 36.5; O2SAT 97; BMI 33.8
[2022-11-04 00:25] LABS: Basophils # 0.1 10^3/uL (0.0-0.1); Basophils % 0.7 %; Eosinophils # 0.1 10^3/uL (0.0-0.8); Eosinophils % 0.9 %; Hematocrit 46.1 % (36-47); Lymphocytes # 2.6 10^3/uL (0.8-4.8); Lymphocytes % 20.9 %; Mean Corpuscular HGB Conc 33.2 g/dL (30-55); Mean Corpuscular Hemoglobin 30.7 pg (27-33); Mean Corpuscular Volume 92.4 fl (85-98); Monocytes # 0.7 10^3/uL (0.2-0.9); Monocytes % 5.7 %; Neutrophils # 8.84 10^3/uL (1.8-7.7); Neutrophils % 71.3 %; Nucleated Red Blood Cells % 0 %; Platelet Count 285 10^3/cmm (157-399); Red Blood Count 4.99 10^6/uL (3.85-5.65); Red Cell Distribution Width 14.6 % (12.1-15.1)
[2022-11-04 00:34] LABS: INR 0.87 (0.8-1.2)
[2022-11-04 00:41] LABS: Alanine Aminotransferase 22 U/L (0-33); Albumin Level 4.1 g/dL (3.5-5.2); Alkaline Phosphatase 75 U/L (35-105); Aspartate Amino Transferase 16 U/L (0-32); Blood Urea Nitrogen 24 mg/dL (8-23); Calcium 9.6 mg/dL (8.5-10.5); Carbon Dioxide 26 mmol/L (22-29); Chloride 102 mmol/L (98-107); Creatinine Clr Calc Pharmacy 69.4805; Globulin 3.3 g/dL (1.3-4.6); Glomerular Filtration Rate 83.7 mL/min (90-130); Glucose 121 mg/dL (65-115); Osmolality Calculated 293 mOsm/kg (285-295); Sodium 139 mmol/L (136-145); Total Bilirubin 0.7 mg/dL (0.15-1.2); Total Protein 7.4 g/dL (6.6-8.7)
--- NOTE | 2022-11-04 01:32 | CTR_ITS ---
PROCEDURE INFORMATION: Exam: CT Abdomen And Pelvis With Contrast Exam date and time: 11/04/2022 1:52 AM Age: 67 years old Clinical indication: Other: Blood per rectum; Abdominal pain; Generalized; Prior surgery; Surgery date: 6+ months; Surgery type: Appy, ovaries removed; Patient HX: HX of diverticulitis, HX of breast [id number]; Additional info: Abd pain, n/v, blood per rectum , HX diverticulitis TECHNIQUE: Imaging protocol: Computed tomography of the abdomen and pelvis with contrast. Radiation optimization: All CT scans at this facility use at least one of these dose optimization techniques: automated exposure control; mA and/or kV adjustment per patient size (includes targeted exams where dose is matched to clinical indication); or iterative reconstruction. Contrast material: OMNI 350; Contrast volume: 100 ml; Contrast route: INTRAVENOUS (IV); REPORTING DATA: Count of CT and Cardiac NM exams in prior 12 months: This patient has received [address] and 0 known cardiac nuclear medicine studies in the 12 months prior to the current study. COMPARISON: CT abdomen pelvis wo con [id number] 11/23/2021 5:28 PM RADIATION DOSE METRICS: Total DLP (mGy-cm): 727.03 FINDINGS: Liver: Normal. No mass. Gallbladder and bile ducts: Normal. No calcified stones. No ductal dilation. Pancreas: Normal. No ductal dilation. Spleen: Normal. No splenomegaly. Adrenal glands: Normal. No mass. Kidneys and ureters: Normal. No hydronephrosis. Stomach and bowel: Unremarkable. No obstruction. No mucosal thickening. Appendix: Appendectomy. Intraperitoneal space: Unremarkable. No free air. No significant fluid collection. Vasculature: Unremarkable. No abdominal aortic aneurysm. Lymph nodes: Unremarkable. No enlarged lymph nodes. Urinary bladder: Unremarkable as visualized. Reproductive: Unremarkable as visualized. Bones/joints: Unremarkable. No fracture. No osteolytic lesion. Soft tissues: Nonspecific ovoid homogeneous soft tissue density located in the anterior left pelvis superior to lateral aspect of the left superior pubic ramus which measures 3.4 cm x 2.1 cm in transaxial plane which is new from comparison of uncertain significance. There is no surrounding inflammatory changes. CT/CT abdomen pelvis w con* [id number] IMPRESSION: 1. Negative for acute abdominopelvic pathology. 2. Incidental indolent-appearing soft tissue density in the anterior inferior left pelvis just above left superior pubic ramus which is new from comparison and has no correlate on the right side. This is of unknown etiology. Possibly scar tissue or other postinflammatory lesion. A soft tissue malignancy cannot be excluded. This could be further assessed with an outpatient contrast enhanced MRI pelvis or alternatively follow-up outpatient CT surveillance in 3-6 months to document stability.
--- NOTE | 2022-11-04 01:42 | W.ED.ABDPA2 ---
HPI - Abdominal Pain General: Chief Complaint: Abdominal Pain Stated Complaint: rectal pain, blood in stool Time Seen by Provider: 11/03/22 23:57 History of Present Illness: Patient states has been having left lower quadrant abdominal pain, diarrhea and bright red blood per rectum. Patient is concerned because this is the exact way her diverticulitis felt the last time she had it. Patient is also had nausea vomiting has not been eating very much. When she does eat anything it sets off her abdominal pain. Review of Systems General: Reports: 10 or more systems reviewed and unremarkable except in HPI and below PFSH ED PFSH: Medical History Adult onset hypothyroidism Allergic rhinitis Anxiety as acute reaction to exceptional stress Breast cancer Diagnosed 2013. Treated with lumpectomy and lymph node excision. Received chemotherapy. COVID-19 Diabetes mellitus Diverticula of colon Dyslipidemia Essential hypertension Gastroesophageal reflux disease without esophagitis History of cerebrovascular accident Influenza vaccination declined by patient Leukocytosis Serous cystadenoma of left ovary Bilateral salpingo-oophorectomy performed on 02/27/2019. Final path showed serous cystadenoma. Urinary incontinence 01/10/2019: Reports stress and urgency incontinence with urgency Surgical History History of laparoscopic appendectomy History of removal of Port-a-Cath (02/26/14) Inserted on 10/17/2013 and removed on 02/26/2014. Both performed by Dr. Suarez at [facility] and [place], [place] S/P bilateral salpingo-oophorectomy (02/27/19) Laparoscopic. Diag: Left ovarian cyst. Performed by Dr. Han at [facility] in [place], [place]. Final path showed: Left serous cystadenoma. S/P lumpectomy of breast (09/12/13) Diagnosed with breast cancer. S/P lymph node biopsy (09/21/13) Axillary, as part of the evaluation for breast cancer. Status post colonoscopy (05/20/21) Family History Father Stroke Heart disease Sister Hypertension Social History Smoking and tobacco status: former smoker Quit status (tobacco): has quit using tobacco Year quit tobacco: 1974 Second hand smoke exposure: No Smoking risk assessment/counseling performed?: No Alcohol intake: never Desire information about alcohol rehabilitation?: No Counseling given: No Substance/Drug Use: never Desire information about substance/drug rehabilitation?: No Counseling given: No Caregiver/support person: No Lives independently: Yes Household members: family Marital status: Single Current occupational status: disabled Do you think of yourself as: Straight/Heterosexual Current gender identity: Female Additional social history: Well balanced diet Physical Exam Const: COMMON NORMALS: no acute distress, average body habitus, patient oriented x3, no limitations, healthy appearing, alert and well nourished HENMT: COMMON NORMALS: normocephalic, atraumatic, hearing grossly normal bilaterally, external ears normal, Normal external nose present and moist oral mucous membranes HEAD & SCALP: normocephalic and atraumatic NOSE: Normal external nose present EXTERNAL EAR: Yes external ears normal Neck/C-Spine: COMMON NORMALS: no JVD Chest: COMMONS NORMALS: normal inspection of the chest and normal palpation of entire chest wall Resp: COMMON NORMALS: normal respiratory effort, No retractions, No use of accessory muscles and clear to auscultation bilaterally AUSCULTATION: clear to auscultation bilaterally Cardio: COMMON NORMALS: no JVD, regular rate, regular rhythm, S1 normal heart sound present, S2 normal heart sound present, No gallops present (Cardio), No clicks present (Cardio), No murmurs present (Cardio) and No rub (Cardio) RATE: regular rate RHYTHM: regular rhythm HEART SOUNDS: S1 normal heart sound present and S2 normal heart sound present GI: COMMON NORMALS: Normal to inspection, nondistended, normoactive bowel sounds present, Soft to palpation and No hepatosplenomegaly present; negative for non-tender (Diffusely tender to palpate abdomen worse to left lower quadrant) PALPATION: Yes Soft to palpation and Yes No hepatosplenomegaly present : COMMON NORMALS: Yes no CVA tenderness BLADDER/KIDNEY EXAM: Yes no CVA tenderness Back/Pelvis: COMMON NORMALS: no CVA tenderness Neuro: COMMON NORMALS: patient oriented x3 SENSORIUM/ORIENTATION: Yes alert Course Vital Signs: Vital signs: Vital Signs Temperature 97.7 F 11/03/22 23:58 Pulse Rate 99 11/03/22 23:58 Respiratory Rate 18 11/03/22 23:58 Blood Pressure 150/69 11/03/22 23:58 Pulse Oximetry 97 11/03/22 23:58 MDM - Abdominal Pain Medical Decision Making Patient presents to the ER with left lower quadrant abdominal pain diarrhea and bright red blood per rectum. Patient does have a history of diverticulosis. Patient was worked up with lab work and a CT scan lab work was essentially benign. CT scan did show soft tissue density in the anterior left pelvis above the left superior pubic rami and the radiologist recommended a outpatient contrast-enhanced MRI. Patient will be referred back to her PCP to have this arranged. CT scan was negative for diverticulitis. Patient will be discharged home to follow back up with PCP. Differential Diagnosis Likely abdominal pain; Unlikely acute appendicitis, calculus of kidney, constipation, diverticulitis, endometriosis, gastroenteritis, pancreatitis or small bowel obstruction Medical Records I reviewed the patient's medical records. Lab Data I reviewed the patient's lab results. 11/04/22 00:09 11/04/22 00:09 Labs/Radiology: Radiology Impressions Abdomen/Pelvis CT 11/04/22 01:32 IMPRESSION: 1. Negative for acute abdominopelvic pathology. 2. Incidental indolent-appearing soft tissue density in the anterior inferior left pelvis just above left superior pubic ramus which is new from comparison and has no correlate on the right side. This is of unknown etiology. Possibly scar tissue or other postinflammatory lesion. A soft tissue malignancy cannot be excluded. This could be further assessed with an outpatient contrast enhanced MRI pelvis or alternatively follow-up outpatient CT surveillance in 3-6 months to document stability. Laboratory Results WBC 12.40 10^3/uL (3.29-11.43) H 11/04/22 00:09 RBC 4.99 10^6/uL (3.85-5.65) 11/04/22 00:09 Hgb 15.30 g/dL (11.27-16.99) 11/04/22 00:09 Hct 46.1 % (36-47) 11/04/22 00:09 MCV 92.4 fl (85-98) 11/04/22 00:09 MCH 30.7 pg (27-33) 11/04/22 00:09 MCHC 33.2 g/dL (30-55) 11/04/22 00:09 RDW 14.6 % (12.1-15.1) 11/04/22 00:09 Plt Count 285 10^3/cmm (157-399) 11/04/22 00:09 MPV 11.0 fL (7.4-10.4) H 11/04/22 00:09 Neut % (Auto) 71.3 % 11/04/22 00:09 Lymph % (Auto) 20.9 % 11/04/22 00:09 Hall % (Auto) 5.7 % 11/04/22 00:09 Eos % (Auto) 0.9 % 11/04/22 00:09 Baso % (Auto) 0.7 % 11/04/22 00:09 Neut # (Auto) 8.84 10^3/uL (1.8-7.7) H 11/04/22 00:09 Lymph # (Auto) 2.6 10^3/uL (0.8-4.8) 11/04/22 00:09 Hall # (Auto) 0.7 10^3/uL (0.2-0.9) 11/04/22 00:09 Eos # (Auto) 0.1 10^3/uL (0.0-0.8) 11/04/22 00:09 Baso # (Auto) 0.1 10^3/uL (0.0-0.1) 11/04/22 00:09 Nucleated RBC % (auto) 0 % 11/04/22 00:09 Nucleated RBCs # 0.0 /100WBC 11/04/22 00:09 PT 12.10 SECONDS (12.1-14.9) 11/04/22 00:09 INR 0.87 (0.8-1.2) 11/04/22 00:09 Sodium 139 mmol/L (136-145) 11/04/22 00:09 Potassium 4.0 mmol/L (3.5-5.1) 11/04/22 00:09 Chloride 102 mmol/L (98-107) 11/04/22 00:09 Carbon Dioxide 26 mmol/L (22-29) 11/04/22 00:09 Anion Gap 15.0 (5-19) 11/04/22 00:09 BUN 24 mg/dL (8-23) H 11/04/22 00:09 Creatinine 0.7 mg/dL (0.5-0.9) 11/04/22 00:09 GFR Calculation 83.7 mL/min (90-130) L 11/04/22 00:09 Glucose 121 mg/dL (65-115) H 11/04/22 00:09 Calculated Osmolality 293 mOsm/kg (285-295) 11/04/22 00:09 Calcium 9.6 mg/dL (8.5-10.5) 11/04/22 00:09 Total Bilirubin 0.7 mg/dL (0.15-1.2) 11/04/22 00:09 AST 16 U/L (0-32) 11/04/22 00:09 ALT 22 U/L (0-33) 11/04/22 00:09 Alkaline Phosphatase 75 U/L (35-105) 11/04/22 00:09 Total Protein 7.4 g/dL (6.6-8.7) 11/04/22 00:09 Albumin 4.1 g/dL (3.5-5.2) 11/04/22 00:09 Globulin 3.3 g/dL (1.3-4.6) 11/04/22 00:09 All radiology interpretation(s) finalized by discharge Discharge Plan Discharge Patient Disposition: Home Clinical Impression: Abdominal pain, acute, left lower quadrant, Pelvic mass in female, Bright red rectal bleeding Condition: Stable Prescriptions: No Action omeprazole 20 mg capsule,delayed release(DR/EC) 20 mg PO DAILY 360 Days Qty: 90 3RF metoprolol succinate [Toprol XL] 25 mg tablet extended release 24 hr 25 mg PO DAILY Qty: 30 2RF atorvastatin 40 mg tablet 40 mg PO BEDTIME@20 Qty: 30 2RF levothyroxine 50 mcg tablet 50 mcg PO DAILY@06 Qty: 30 2RF lisinopril 30 mg tablet 30 mg PO BEDTIME@20 Qty: 30 2RF furosemide [Lasix] 20 mg tablet 40 mg PO QAM Qty: 60 1RF potassium chloride 8 mEq tablet extended release 8 meq PO DAILY Qty: 90 3RF multivitamin Tablet 1 tab PO DAILY Vitor Mag Zinc Plus D3 333 mg-133 unit -133 mg-5 mg Tablet 2 tab PO DAILY@12 Probiotic Blend 2 billion cell-50 mg Capsule 1 cap PO DAILY Rx Instructions: give with meal/snack aspirin 81 mg tablet,delayed release (DR/EC) 81 mg PO DAILY Discharge Orders: Discharge ED (Routine); Ordered 11/04/22 Ordered By: Kevin Hernandez Referrals: Hermann Villarreal, VIDEO CLERK-C [Primary Care Provider] - 1 week Patient Instructions: Abdominal Pain (ED) Activity Restrictions/Additional Instructions: Please follow back up with your family physician in the next 7 days or sooner as needed for further evaluation and treatment. Your CT scan showed you may have a pelvic mass. The radiologist recommended a contrast-enhanced MRI of the pelvis to further delineate this mass. Coding Level of Care Code ED Supervisor Mending for Chandler Francis
[2022-11-04] MEDS: iohexol 350 mg/mL 500 mL Btl (per mL) IV (02:01)
[2022-11-04 04:07] VITALS: BP 150/69; PULSE 99; RESP 18; TEMP 36.5; O2SAT 97
== END 2022-11-04 04:10 | disposition home or self-care (01) ==
PROVIDERS: Emergency Provider Emergency Medicine; PCP Nurse Practitioner
DX: R19.04 Left lower quadrant abdominal swelling, mass and lump (principal); R10.32 Left lower quadrant pain; K62.5 Hemorrhage of anus and rectum; Z79.82 Long term (current) use of aspirin; Z87.891 Personal history of nicotine dependence; Z85.3 Personal history of malignant neoplasm of breast; E11.9 Type 2 diabetes mellitus without complications; E78.5 Hyperlipidemia, unspecified; I10 Essential (primary) hypertension; Z86.73 Personal history of transient ischemic attack (TIA), and cerebral infarction without residual deficits
CPT/HCPCS: 36415; 74177; 80053; 85025; 85610; 99285; Q9967

== ENCOUNTER 2022-12-03 10:53 | Outpatient (CLI) | payer MEDICARE, MEDICAID, SELFPAY ==
--- NOTE | 2022-12-03 11:00 | MR_ITS ---
WS: [id number] MRI NECK WITH AND WITHOUT CONTRAST. COMPARISON: CT abdomen and pelvis 11/04/2012. Multiplanar, multisequence imaging is performed with and without contrast. MultiHance 20 mL. Well-circumscribed 2.3 x 1.2 cm mass identified in the LEFT pelvis just anterior to the pubic rami. T his was described on the recent CT. On the T1 sequences this is of intermediate signal with a low sig nal border. On the T2 sequences with fat saturation there is no complete fat saturation. This does no t appear to be a fat-containing lesion. There is variable signal on the T2 sequences and mass has sli ghtly decreased in size as compared to the prior CT. There are no additional similar masses or nodule s within the pelvis. There is some very mild enhancement likely on the postcontrast imaging. No additional abnormalities noted within the pelvis. Endometrium appears normal. No free fluid or asc ites. There is mild nodularity and enhancement towards the rectum. Patient described rectal bleeding as par t of the history. These may be small polyps or hemorrhoids. IMPRESSION: 1. Well-circumscribed mass measuring 2.3 x 1.2 cm identified in the LEFT pelvis adjacent to the pubic rami. This is slightly decreased in size as compared to the prior CT of 11/04/2012. This is mildly he terogeneous but nonspecific. This may be a small hemorrhagic lymph node. This is not a simple cyst. T his would be a an appropriate location for cartilaginous cyst from the adjacent pubic rami. There are no additional masses or lymph nodes. Suspect there is also probably a hemorrhagic component. Conside r follow-up imaging in 3 to 4 months. Follow-up imaging by CT or MRI would be satisfactory. 2. Small intraluminal nodules towards the rectum. Patient should be evaluated for early colonic neopl asm. Similar changes may be observed with polyps or hemorrhoids.
[2022-12-03] MEDS: gadobenate dimeglumine 20 mL vial IV (12:35)
== END 2022-12-03 10:54 | disposition home or self-care (01) ==
PROVIDERS: PCP Nurse Practitioner; Visit Provider Nurse Practitioner Family
DX: R19.09 Other intra-abdominal and pelvic swelling, mass and lump
CPT/HCPCS: 72197; A9577

== ENCOUNTER 2022-12-23 10:00 | Oncology outpatient (recurring) (ONCR) | payer MEDICARE, MEDICAID, SELFPAY ==
[2022-12-23 10:14] VITALS: BP 125/78; PULSE 78; RESP 18; TEMP 36.5; O2SAT 98
[2022-12-23 10:29] LABS: Basophils # 0.1 10^3/uL (0.0-0.1); Basophils % 0.7 %; Eosinophils # 0.1 10^3/uL (0.0-0.8); Eosinophils % 0.9 %; Hematocrit 44.9 % (36-47); Lymphocytes % 19.3 %; Mean Corpuscular Hemoglobin 30.9 pg (27-33); Mean Corpuscular Volume 93.7 fl (85-98); Mean Platelet Volume 11.1 fL (7.4-10.4); Monocytes # 0.6 10^3/uL (0.2-0.9); Monocytes % 5.8 %; Neutrophils # 7.64 10^3/uL (1.8-7.7); Neutrophils % 72.9 %; Nucleated Red Blood Cells % 0 %; Platelet Count 283 10^3/cmm (157-399); Red Blood Count 4.79 10^6/uL (3.85-5.65); Red Cell Distribution Width 14.1 % (12.1-15.1); White Blood Count 10.47 10^3/uL (3.29-11.43)
[2022-12-23 10:46] LABS: Alanine Aminotransferase 21 U/L (0-33); Alkaline Phosphatase 74 U/L (35-105); Anion Gap 13.9 (5-19); Aspartate Amino Transferase 17 U/L (0-32); Blood Urea Nitrogen 16 mg/dL (8-23); Calcium 9.6 mg/dL (8.5-10.5); Carbon Dioxide 27 mmol/L (22-29); Chloride 104 mmol/L (98-107); Globulin 3.2 g/dL (1.3-4.6); Glomerular Filtration Rate 83.7 mL/min (90-130); Glucose 115 mg/dL (65-115); Osmolality Calculated 294 mOsm/kg (285-295); Potassium 3.9 mmol/L (3.5-5.1); Sodium 141 mmol/L (136-145); Total Bilirubin 1.1 mg/dL (0.15-1.2); Total Protein 7.2 g/dL (6.6-8.7)
== END 2023-01-13 23:59 | disposition home or self-care (01) ==
LOC: ONCMED 10:01
PROVIDERS: Internal Medicine Medical Oncology; PCP Nurse Practitioner; Visit Provider Internal Medicine Hematology & Oncology
DX: Z08 Encounter for follow-up examination after completed treatment for malignant neoplasm (principal); Z85.3 Personal history of malignant neoplasm of breast; D72.829 Elevated white blood cell count, unspecified; Z92.21 Personal history of antineoplastic chemotherapy; Z92.3 Personal history of irradiation
CPT/HCPCS: 36415; 80053; 85025; 99215

== ENCOUNTER 2022-12-29 12:46 | Outpatient (CLI) | payer MEDICARE, MEDICAID, SELFPAY ==
--- NOTE | 2022-12-29 13:17 | MM_ITS ---
WS: [id number] BILATERAL 3D TOMOSYNTHESIS DIGITAL DIAGNOSTIC MAMMOGRAPHY WITH CAD CLINICAL INFORMATION: Follow up HISTORY: LEFT breast cancer COMPARISON: 2021 TECHNIQUE: Bilateral CC, MLO, and ML views. FINDINGS: The breasts are composed of heterogeneous fibroglandular density, which can limit the detection of sm all underlying mass lesions. Postoperative changes surgical clips LEFT breast with parenchymal scarri ng at the lumpectomy site. Stable volume loss LEFT breast. Trabecular thickening with treatment-relat ed changes and skin thickening LEFT breast. Bilateral punctate and lucent centered calcifications. Secretory calcifications. No suspicious focal mass, asymmetry, calcifications, or architectural distortion. No evidence of aaliyah gnancy. IMPRESSION: MM/[place] [id number] BI-RADS: 2-Benign FOLLOW UP: 1 Year Follow-up Recommend return to annual diagnostic mammography.
== END 2022-12-29 12:47 | disposition home or self-care (01) ==
LOC: RAD 12:48
PROVIDERS: PCP Nurse Practitioner; Visit Provider Internal Medicine Hematology & Oncology
DX: C50.919 Malignant neoplasm of unspecified site of unspecified female breast (principal); R92.1 Mammographic calcification found on diagnostic imaging of breast; K62.89 Other specified diseases of anus and rectum; K92.1 Melena
CPT/HCPCS: 77062; 99214; G0279

== ENCOUNTER 2023-01-21 05:46 | Day surgery (SDC) | payer MEDICARE, MEDICAID, SELFPAY ==
[2023-01-21 06:12] VITALS: BP 138/69; PULSE 105; RESP 18; TEMP 36.3; O2SAT 98; BMI 32.7
[2023-01-21] MEDS: sodium chloride 0.9% 1,000 ML 30 ML IV (06:19)
--- NOTE | 2023-01-21 06:52 | W.PM.OPSUD ---
Surgery/Procedure H&P Update DATE OF PROCEDURE: January 21, 2023 DATE H&P PERFORMED: 12/29/22 H&P UPDATE INFORMATION: I have reviewed H&P completed within last 30 days, I have examined patient prior to procedure and No changes to prior documentation PLANNED PROCEDURE: Operation Date: 01/21/23 07:00 Proposed Procedures p Colonoscopy 13776,G0121,K62.89,K92.1(Not Applicable) - Roberto Carlos Garcia DO
--- NOTE | 2023-01-21 06:54 | P.ANESASSM_ITS ---
Pre-Anesthetic Assessment Height/Weight: Height 1.57 m Weight 81.193 kg Temp Pulse Resp BP Pulse Ox O2 Del Method 97.4 F L 105 H 18 138/69 98 Room Air 01/21/23 06:12 01/21/23 06:12 01/21/23 06:12 01/21/23 06:12 01/21/23 06:12 01/21/23 06:12 Preop Diagnosis: hamtochezia Operation Date: 01/21/23 07:00 Proposed Procedures p Colonoscopy 85133,G0121,K62.89,K92.1(Not Applicable) - Roberto Carlos Garcia DO Familial anesthetic complications: none Was Beta Steve taken within 24 hours: Yes Was Clonidine taken within 24 hours: N/A Last intake: Intake Last Liquid Date 01/20/23 Last Liquid Time 22:00 Last Solid Date 01/19/23 Last Solid Time 19:00 Social No alcohol and No tobacco Exam alert, oriented x 3, clear to auscultation bilaterally and regular rate & rhythm Airway Submandibular: within normal limits Cervical ROM: within normal limits Mallampati: Class II Dentition: full Pulmonary None reported CV/HEM Hypertension None reported Hepatic Hepatitis (history of A but years ago) GI Gastroesophageal Reflux Disease (with spicy meals) Metabolic Hyperlipidemia and Thyroid Disease Musc/skel Osteoarthritis/DJD Neuropsych Transient Ischemic Attack (years ago) Anesthetic Plan ASA status: 3 Anesthesia: MAC Risk of > 500 ml blood loss (7ml/kg in children): No Medications/Allergies Home Medications Medication Instructions Recorded Confirmed Last Taken Type L.acidophil-L.casei-B.bifid-B.longum-FOS 1 cap PO DAILY 11/24/21 01/19/23 01/19/23 History 2 billion cell-50 mg capsule (Probiotic Blend) aspirin 81 mg tablet,delayed 81 mg PO DAILY 11/24/21 01/19/23 01/19/23 History release multivitamin 1 tab PO DAILY 11/24/21 01/19/23 01/19/23 History potassium chloride 8 mEq 8 meq PO DAILY #90 tabs 10/05/22 01/19/23 01/19/23 Rx tablet,extended release omeprazole 20 mg capsule,delayed 20 mg PO DAILY PRN Stomach Upset 12/29/22 01/19/23 Unknown History release atorvastatin 40 mg tablet 40 mg PO BEDTIME@20 #30 tabs 01/19/23 01/19/23 01/20/23 Rx furosemide 20 mg tablet (Lasix) 40 mg (2 x 20 mg) PO QAM #60 tabs 01/19/23 01/19/23 01/19/23 Rx levothyroxine 50 mcg tablet 50 mcg PO DAILY@06 #30 tabs 01/19/23 01/19/23 01/21/23 Rx lisinopril 10 mg tablet 10 mg PO BEDTIME@20 #30 tabs 01/19/23 01/19/23 01/20/23 Rx magnesium 250 mg tablet 250 mg PO DAILY 01/19/23 01/19/23 01/19/23 History metoprolol succinate 50 mg 50 mg PO DAILY #30 tabs 01/19/23 01/19/23 01/20/23 Rx tablet,extended release 24 hr (Toprol XL) Allergies Allergy/AdvReac Type Severity Reaction Status Date / Time codeine Allergy ALGY-Hives Verified 01/19/23 08:45 haloperidol Allergy Weird Verified 01/19/23 08:45 feeling morphine Allergy Weird Verified 01/19/23 08:45 feeling /confusion Penicillins Allergy Hives/Itchi Verified 01/19/23 08:45 ng Current Medications Generic Name Dose Route Start Last Admin Trade Name Freq PRN Reason Stop Dose Admin Sodium Chloride 1,000 mls @ 30 mls/hr 01/21/23 06:00 01/21/23 06:19 Sodium Chloride 0.9% IV 01/22/23 05:59 30 mls/hr .Q24H CADEN Administration PFSH Anesthesia Medical History Leukocytosis Influenza vaccination declined by patient Diverticula of colon Allergic rhinitis COVID-19 Adult onset hypothyroidism Anxiety as acute reaction to exceptional stress Diabetes mellitus Serous cystadenoma of left ovary Bilateral salpingo-oophorectomy performed on 02/27/2019. Final path showed serous cystadenoma. Breast cancer Diagnosed 2013. Treated with lumpectomy and lymph node excision. Received chemotherapy. Gastroesophageal reflux disease without esophagitis Essential hypertension Dyslipidemia Urinary incontinence 01/10/2019: Reports stress and urgency incontinence with urgency History of cerebrovascular accident Surgical History History of laparoscopic appendectomy Status post colonoscopy (05/20/21) S/P bilateral salpingo-oophorectomy (02/27/19) Laparoscopic. Diag: Left ovarian cyst. Performed by Dr. Han at [facility] in [place], [place]. Final path showed: Left serous cystadenoma. History of removal of Port-a-Cath (02/26/14) Inserted on 10/17/2013 and removed on 02/26/2014. Both performed by Dr. Suarez at [facility] and [place], [place] S/P lymph node biopsy (09/21/13) Axillary, as part of the evaluation for breast cancer. S/P lumpectomy of breast (09/12/13) Diagnosed with breast cancer. Family History Father Stroke Heart disease Sister Hypertension Social History Smoking and tobacco/nicotine status: former use of tobacco/nicotine Quit status (tobacco/nicotine): has quit using Year quit tobacco: 1975 Second hand smoke exposure: No Alcohol intake: never Substance/Drug Use: never Additional social history: Well balanced diet Adopted: No Caregiver/support person: No Lives independently: Yes Household members: family Housing: Apartment Marital status: Single service: No Current occupational status: disabled Current occupational exposures/hazards: No Do you think of yourself as: Straight/Heterosexual Current gender identity: Female Data Anesthesia Cardiac Studies: Echocardiogram 09/27/22 Echocardiogram Ultrasound 01/24/20 Cardiac Event Monitor 09/16/22
[2023-01-21 07:21] VITALS: BP 93/43; PULSE 64; RESP 16; TEMP 36.4; O2SAT 98
[2023-01-21 07:39] VITALS: BP 104/60; PULSE 72; RESP 16; O2SAT 99
--- NOTE | 2023-01-21 14:45 | ANE.PACU2 ---
Inpatient post-anesthesia follow up: Airway intact: Yes Vital signs: Temperature 97.6 F Pulse Rate 72 Respiratory Rate 16 Blood Pressure 104/60 Pulse Oximetry 99 Oxygen Delivery Me thod Room Air Oxygen Flow Rate 3 Fraction of Inspir ed Oxygen Hydration adequate: Yes Nausea and vomiting: No Pain level: 2 Mental status: Baseline
== END 2023-01-21 07:50 | disposition home or self-care (01) ==
PROVIDERS: PCP Nurse Practitioner; Visit Provider Surgery
PROC: 0DJD8ZZ Inspection of Lower Intestinal Tract, Via Natural or Artificial Opening Endoscopic (ICD-10-PCS; CPT 45378; principal; 2023-01-21 07:00)
DX: K62.89 Other specified diseases of anus and rectum (principal); K92.1 Melena; D12.8 Benign neoplasm of rectum; I10 Essential (primary) hypertension; K21.9 Gastro-esophageal reflux disease without esophagitis; E78.5 Hyperlipidemia, unspecified; M19.90 Unspecified osteoarthritis, unspecified site; Z86.73 Personal history of transient ischemic attack (TIA), and cerebral infarction without residual deficits; Z79.82 Long term (current) use of aspirin; Z86.16 Personal history of COVID-19; E11.9 Type 2 diabetes mellitus without complications; E03.9 Hypothyroidism, unspecified; Z85.3 Personal history of malignant neoplasm of breast; Z87.891 Personal history of nicotine dependence
CPT/HCPCS: 45385; 88305; J2704; J7030

== ENCOUNTER 2023-02-15 09:25 | Outpatient (CLI) | payer MEDICARE, MEDICAID, SELFPAY ==
[2023-02-15] MEDS: iohexol 350 mg/mL 500 mL Btl (per mL) PO (10:20)
--- NOTE | 2023-02-15 10:30 | CTR_ITS ---
PROCEDURE INFORMATION: Exam: CT Abdomen And Pelvis With Contrast Exam date and time: 02/15/2023 10:36 AM Age: 68 years old Clinical indication: Mass, lump, or swelling; Generalized; Prior surgery; Surgery date: 6+ months; Surgery type: --appy, ovaries; Patient HX: HX of breast cancer; Additional info: R19.00 - intra-abdominal and pelvic swelling, mass and jefferson. . . TECHNIQUE: Imaging protocol: Computed tomography of the abdomen and pelvis with contrast. Radiation optimization: All CT scans at this facility use at least one of these dose optimization techniques: automated exposure control; mA and/or kV adjustment per patient size (includes targeted exams where dose is matched to clinical indication); or iterative reconstruction. Contrast material: OMNI 350; Contrast volume: 95 ml; Contrast route: INTRAVENOUS (IV); COMPARISON: MR pelvis wo/w con [id number] 12/03/2022 11:47 AM RADIATION DOSE METRICS: Total DLP (mGy-cm): 530.38 FINDINGS: Lungs: Subsegmental atelectasis. Diaphragm: No evidence of diaphragmatic defect. Liver: No focal hepatic lesion. The portal vein, SMV and splenic veins are patent. Gallbladder and bile ducts: Unremarkable. No intra-hepatic or extra-hepatic biliary dilatation. Pancreas: There is moderate pancreatic atrophy. Pancreas is otherwise unremarkable. Spleen: Multiple punctate splenic calcifications compatible with sequela of remote granulomatous process. 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 Adrenal glands: Unremarkable. Kidneys and ureters: No renal parenchymal abnormality. No hydronephrosis or ureteral stone. Stomach and bowel: No evidence of bowel obstruction, free air or pneumatosis. Appendix: Status post appendectomy. Intraperitoneal space: No significant free fluid or collection. Vasculature: Moderate aortobiiliac atherosclerosis without aneurysmal dilatation or dissection. Lymph nodes: No adenopathy. Urinary bladder: Unremarkable. Reproductive: Uterus and adnexa are grossly unremarkable. Bones/joints: No evidence of acute fracture or aggressive osseous lesion. Soft tissues: Postsurgical changes of the ventral abdominal wall. No evidence of fluid collection, hematoma or mass-like lesion in the superficial soft tissues. CT/CT abdomen pelvis w con* [id number] IMPRESSION: 1. No evidence of acute abnormality in the abdomen or pelvis.
[2023-02-15] MEDS: iohexol 350 mg/mL 500 mL Btl (per mL) IV (10:41)
== END 2023-02-15 09:26 | disposition home or self-care (01) ==
LOC: RAD 09:25
PROVIDERS: PCP Nurse Practitioner; Visit Provider Nurse Practitioner
DX: R19.00 Intra-abdominal and pelvic swelling, mass and lump, unspecified site (principal); Z85.3 Personal history of malignant neoplasm of breast; Z90.89 Acquired absence of other organs; Z90.722 Acquired absence of ovaries, bilateral
CPT/HCPCS: 74177; Q9967

== ENCOUNTER 2023-02-21 12:20 | Oncology outpatient (recurring) (ONCR) | payer MEDICARE, MEDICAID, SELFPAY | END 2023-03-16 23:59 | disposition home or self-care (01) | PROVIDERS: PCP Nurse Practitioner; Visit Provider Internal Medicine Hematology & Oncology | DX: Z08 Encounter for follow-up examination after completed treatment for malignant neoplasm (principal); Z85.3 Personal history of malignant neoplasm of breast; D72.829 Elevated white blood cell count, unspecified; Z92.21 Personal history of antineoplastic chemotherapy; Z92.3 Personal history of irradiation | CPT/HCPCS: 99214 ==

== ENCOUNTER → 2023-02-22 14:59 | Outpatient (BNVA) | payer MEDICARE, MEDICAID, SELFPAY | PROVIDERS: PCP Nurse Practitioner; Visit Provider Surgery | DX: Z09 Encounter for follow-up examination after completed treatment for conditions other than malignant neoplasm (principal) | CPT/HCPCS: 99213 ==

== ENCOUNTER → 2023-04-05 10:21 | Outpatient (BNVA) | payer MEDICARE, MEDICAID, SELFPAY | PROVIDERS: PCP Nurse Practitioner; Visit Provider Nurse Practitioner Family | DX: I10 Essential (primary) hypertension (principal); R00.0 Tachycardia, unspecified; Z87.891 Personal history of nicotine dependence | CPT/HCPCS: 99214 ==

== ENCOUNTER → 2023-04-07 08:57 | Outpatient (BNVA) | payer MEDICARE, MEDICAID, SELFPAY | PROVIDERS: PCP Nurse Practitioner; Visit Provider Nurse Practitioner | DX: I10 Essential (primary) hypertension (principal); E78.5 Hyperlipidemia, unspecified; E03.8 Other specified hypothyroidism; E55.9 Vitamin D deficiency, unspecified | CPT/HCPCS: 80053; 80061; 82306; 82607; 84439; 84443; 84481; 85025 ==

== ENCOUNTER → 2023-06-23 10:21 | Outpatient (BNVA) | payer MEDICARE, MEDICAID, SELFPAY | PROVIDERS: PCP Nurse Practitioner; Visit Provider Nurse Practitioner | DX: E78.5 Hyperlipidemia, unspecified (principal); I10 Essential (primary) hypertension; E03.8 Other specified hypothyroidism; R00.0 Tachycardia, unspecified | CPT/HCPCS: 80048 ==

== ENCOUNTER 2023-08-19 11:32 | Outpatient (CLI) | payer MEDICARE, MEDICAID, SELFPAY ==
--- NOTE | 2023-08-19 13:00 | XR_ITS ---
WS: [id number] SCREENING DEXA SCAN [employer] CLINICAL INFORMATION: breast cancer COMPARISON: 2016 FINDINGS: The L1-L4 bone mineral density measures 1.136 g/cm2. This corresponds to a T score score of -0.4 and Z score of 0.7. Left femoral neck bone mineral density measures 1.115 g/cm2. This corresponds to a T score of 0.9 and Z score of 1.8. Right femoral neck bone mineral density measures 1.089 g/cm2. This corresponds to a T score 0.6of and Z score of 1.6. Mean femoral neck bone mineral density measures 1.102 g/cm2. This corresponds to a T score of 0.7 and Z score of 1.7. XR/XR DEXA axial skeleton* [id number] IMPRESSION: Normal bone mineralization. Patient's FRAX calculated 10 year probability for major osteoporotic fracture i s 6.5% and osteoporotic hip fracture is 0.2%. Lumbar spine bone mineralization increased 14.7% Femoral necks decreased -5.1%
== END 2023-08-19 11:33 | disposition home or self-care (01) ==
LOC: RAD 11:32
PROVIDERS: PCP Nurse Practitioner; Visit Provider Internal Medicine
DX: Z78.0 Asymptomatic menopausal state (principal); C50.919 Malignant neoplasm of unspecified site of unspecified female breast
CPT/HCPCS: 77080; 99213

== ENCOUNTER → 2023-09-08 08:32 | Outpatient (BNVA) | payer MEDICARE, MEDICAID, SELFPAY | PROVIDERS: PCP Nurse Practitioner; Visit Provider Nurse Practitioner | DX: I10 Essential (primary) hypertension (principal); E03.8 Other specified hypothyroidism; M25.561 Pain in right knee; M17.11 Unilateral primary osteoarthritis, right knee | CPT/HCPCS: 73562; 80053; 80061; 84443 ==

== ENCOUNTER 2023-09-12 11:38 | Oncology outpatient (recurring) (ONCR) | payer MEDICARE, MEDICAID, SELFPAY ==
[2023-09-12 12:28] LABS: Basophils # 0.1 10^3/uL (0.0-0.1); Eosinophils # 0.2 10^3/uL (0.0-0.8); Eosinophils % 1.4 %; Hematocrit 44.3 % (36-47); Lymphocytes % 18.4 %; Mean Corpuscular HGB Conc 32.5 g/dL (30-55); Mean Corpuscular Hemoglobin 30.1 pg (27-33); Mean Corpuscular Volume 92.7 fl (85-98); Mean Platelet Volume 10.5 fL (7.4-10.4); Monocytes # 0.8 10^3/uL (0.2-0.9); Monocytes % 7.3 %; Neutrophils # 7.91 10^3/uL (1.8-7.7); Neutrophils % 71.4 %; Nucleated Red Blood Cells % 0 %; Platelet Count 269 10^3/cmm (157-399); Red Blood Count 4.78 10^6/uL (3.85-5.65); Red Cell Distribution Width 14.7 % (12.1-15.1); White Blood Count 11.06 10^3/uL (3.29-11.43)
[2023-09-12 12:56] LABS: Alanine Aminotransferase 16 U/L (0-33); Alkaline Phosphatase 66 U/L (35-105); Anion Gap 15.3 (5-19); Aspartate Amino Transferase 13 U/L (0-32); Blood Urea Nitrogen 20 mg/dL (8-23); Calcium 9.4 mg/dL (8.5-10.5); Carbon Dioxide 24 mmol/L (22-29); Chloride 106 mmol/L (98-107); Globulin 3.4 g/dL (1.3-4.6); Glomerular Filtration Rate 99.7 mL/min (90-130); Glucose 109 mg/dL (65-115); Osmolality Calculated 295 mOsm/kg (285-295); Potassium 4.3 mmol/L (3.5-5.1); Sodium 141 mmol/L (136-145); Total Bilirubin 0.9 mg/dL (0.15-1.2); Total Protein 7.4 g/dL (6.6-8.7)
== END 2023-09-14 23:59 | disposition home or self-care (01) ==
LOC: ONCMED 11:38
PROVIDERS: Internal Medicine; PCP Nurse Practitioner; Visit Provider Internal Medicine Hematology & Oncology
DX: C50.812 Malignant neoplasm of overlapping sites of left female breast (principal)
CPT/HCPCS: 36415; 80053; 85025; 99213

== ENCOUNTER 2024-01-05 10:04 | Outpatient (CLI) | payer MEDICARE, MEDICAID, SELFPAY ==
--- NOTE | 2024-01-05 12:00 | MM_ITS ---
WS: [id number] VIEWS: MLO, CC, and ML views both breasts. 3D digital tomosynthesis is also included in this exam. Comparison made with prior exam of 09/02/2017, 09/07/2019, 11/17/2020, 12/29/2022, 03/01/2016, 09/04/2018, . Findings: The breasts are extremely dense, which lowers the sensitivity of mammography. No new suspicious mass or nodule identified. Postoperative changes noted in the LEFT breast which are stable in appearance. MM/MM diag BI tomosynthesis [id number] Impression: BI-RADS: 2 - Benign FOLLOW-UP: 1 Year Follow-up This mammogram was also analyzed by the Computer Aided Detection System R2 Imag e [employer].
== END 2024-01-05 10:05 | disposition home or self-care (01) ==
LOC: RAD 10:05
PROVIDERS: PCP Nurse Practitioner; Visit Provider Nurse Practitioner
DX: C50.312 Malignant neoplasm of lower-inner quadrant of left female breast (principal); R92.333 Mammographic heterogeneous density, bilateral breasts; Z98.890 Other specified postprocedural states
CPT/HCPCS: 77062; G0279

== ENCOUNTER → 2024-02-07 10:00 | Outpatient (BNVA) | payer MEDICARE, MEDICAID, SELFPAY | PROVIDERS: PCP Nurse Practitioner; Visit Provider Internal Medicine Cardiovascular Disease | DX: R00.0 Tachycardia, unspecified (principal); E78.5 Hyperlipidemia, unspecified; I10 Essential (primary) hypertension; I42.8 Other cardiomyopathies; I89.0 Lymphedema, not elsewhere classified; Z87.891 Personal history of nicotine dependence | CPT/HCPCS: 99214 ==

== ENCOUNTER → 2024-03-01 09:01 | Outpatient (BNVA) | payer MEDICARE, MEDICAID, SELFPAY | PROVIDERS: PCP Nurse Practitioner; Visit Provider Nurse Practitioner | DX: E55.9 Vitamin D deficiency, unspecified (principal); E11.9 Type 2 diabetes mellitus without complications; R00.0 Tachycardia, unspecified | CPT/HCPCS: 80053; 80061; 82306; 82607; 83036; 84443 ==

== ENCOUNTER → 2024-08-08 08:41 | Outpatient (BNVA) | payer MEDICARE, MEDICAID, SELFPAY | PROVIDERS: PCP Nurse Practitioner; Visit Provider Nurse Practitioner Family | DX: I42.8 Other cardiomyopathies (principal); E78.5 Hyperlipidemia, unspecified; I10 Essential (primary) hypertension; Z79.82 Long term (current) use of aspirin; Z85.3 Personal history of malignant neoplasm of breast; Z86.73 Personal history of transient ischemic attack (TIA), and cerebral infarction without residual deficits; Z87.891 Personal history of nicotine dependence | CPT/HCPCS: 99214 ==

== ENCOUNTER → 2024-08-30 09:59 | Outpatient (BNVA) | payer MEDICARE, MEDICAID, SELFPAY | PROVIDERS: PCP Nurse Practitioner; Visit Provider Nurse Practitioner | DX: I10 Essential (primary) hypertension (principal); E03.8 Other specified hypothyroidism; E55.9 Vitamin D deficiency, unspecified | CPT/HCPCS: 80053; 80061; 82306; 82607; 84443; 85025 ==

== ENCOUNTER 2025-01-16 10:37 | Outpatient (CLI) | payer MEDICARE, MEDICAID, SELFPAY ==
--- NOTE | 2025-01-16 11:00 | MM_ITS ---
WS: [id number] DIAGNOSTIC BILATERAL DIGITAL BREAST TOMOSYNTHESIS MAMMOGRAPHY WITH CAD HISTORY: C50.919 - Malignant neoplasm of unspecified site of unspe... COMPARISON: 01/05/2024, 12/29/2022, 12/29/2021, 09/07/2019 TECHNIQUE: Bilateral craniocaudad, mediolateral oblique, and mediolateral views are submitted with tomosynthesis and SM. Computer aided detection utilized. Breast composition: The breasts are heterogeneously dense, which may obscure small masses. Volume loss in the LEFT breast from prior lumpectomy. Postradiation changes are noted with trabecular thickening. Numerous clips are in the central breast. No recurrent mass or distortion identified. There are benign calcifications within each breast. No suspicious grouping of calcifications. MM/MM diag BI tomosynthesis [id number] IMPRESSION: BI-RADS: 2 - Benign FOLLOW UP: 1 Year Follow-up
== END 2025-01-16 10:38 | disposition home or self-care (01) ==
LOC: RAD 10:38
PROVIDERS: PCP Nurse Practitioner; Visit Provider Nurse Practitioner
DX: C50.912 Malignant neoplasm of unspecified site of left female breast (principal); R92.333 Mammographic heterogeneous density, bilateral breasts; R92.1 Mammographic calcification found on diagnostic imaging of breast; Z98.890 Other specified postprocedural states; N64.89 Other specified disorders of breast
CPT/HCPCS: 77062; G0279